=== PATIENT | female | born 1940 | race Caucasian/White ===

== ENCOUNTER 2021-01-15 08:08 | Observation (INO) ==
[2021-01-15] MEDS ORDERED: IOPAMIDOL 100 ML BOTTLE IV ONE (08:09)
[2021-01-15] MEDS ORDERED: PEG 3350/NA SULF,BICARB,CL/KCL 4,000 ML ORAL.SOL PO ONE ×3 (08:28→19:29)
--- NOTE | 2021-01-15 08:31 | Emergency Department Note ---
HPI General Chief complaint: Constipation Stated complaint: blocked up bowels Time Seen by Provider: 01/15/21 08:21 Source: patient Mode of arrival: wheelchair Limitations: no limitations History of Present Illness HPI Narrative: Narrative: This patient has not had a bowel movement 2 days and does feel like she is constipated. She does take narcotics for lumbar back pain. She has no nausea or vomiting and not much in the way of abdominal pain. Related Data Home Medications Medication Instructions Recorded Confirmed ascorbic acid (vitamin C) 500 mg mg PO 09/12/20 09/12/20 capsule aspirin 81 mg tablet,delayed 81 mg PO QDAY 09/12/20 09/12/20 release levothyroxine 100 mcg capsule 100 mcg PO QDAY 09/12/20 09/12/20 lorazepam 0.5 mg tablet 0.5 mg PO BID PRN 09/12/20 09/12/20 nszrsauu-tztdryu-gqij-lutein tablet mcg PO 09/12/20 09/12/20 quetiapine 25 mg tablet 25 mg PO QDAY 09/12/20 09/12/20 quetiapine 50 mg tablet 50 mg PO QHS 09/12/20 09/12/20 Previous Rx's Medication Instructions Recorded methocarbamol 500 mg tablet 500 mg PO Q6H PRN #30 tab 09/12/20 hydrocodone-acetaminophen 1 tab PO Q6-8HP PRN #10 tab 11/03/20 methocarbamol 500 mg PO Q6H PRN #20 tab 11/03/20 methocarbamol 750 mg PO TIDP PRN #42 tab 11/08/20 Allergies Allergy/AdvReac Type Severity Reaction Status Date / Time Penicillins Allergy itching/ Verified 09/12/20 12:36 rash Review of Systems ROS ROS Narrative: Narrative: All systems ED: reviewed and negative except as stated. PFSH Narrative Patient History Narrative: Narrative: Medical/Surgical/Family History All Active Problems (Updated 01/15/21 @ 08:31 by Trav Piper MD) Acute lumbar myofascial strain (Acute) Osteoarthritis of lumbar spine (Acute) Lumbar spine strain (Acute) Hematuria (Acute) Left flank pain (Acute) Right hip pain (Acute) Constipation (Acute) Social History Smoking Status: Current every day smoker Exam Narrative Narrative: Narrative: General Limitations: no limitations Head Head: Present atraumatic, normocephalic and normal inspection Adbominal Abdominal: Present soft; Absent distention and tenderness Rectal Rectal: Present other (She does have a fair amount of stool in the vault but I do not think she is impacted.) Neurological Neurological: Present alert Psychiatric Psychiatric: Present normal affect Skin Skin: Present warm (WNL) and dry; Absent diaphoresis Course Vital Signs Vital signs: Vital Signs Temperature 97.6 F 01/15/21 08:11 Pulse Rate 71 01/15/21 08:11 Respiratory Rate 19 01/15/21 08:11 Blood Pressure 149/85 01/15/21 08:11 Pulse Oximetry (%) 98 01/15/21 08:11 Temperature 97.6 F 01/15/21 08:11 Pulse Rate 71 01/15/21 08:11 Respiratory Rate 19 01/15/21 08:11 Blood Pressure 149/85 01/15/21 08:11 Pulse Oximetry (%) 98 01/15/21 08:11 MDM MDM Narrative Medical decision making narrative: Narrative: I am going to try to treat her with oral GoLYTELY here in the emergency room. She is a bit fragile does need some help. I will sign this patient off to Dr. Gomes been 1/2-hour and he will have final disposition. Discharge Plan Patient/Caregiver Discharge Instructions Pt seen by NUMERICAL TOOL PROGRAMMER/PA only: No Clinical Impression: Constipation Patient Disposition: Still a Patient Follow up with: Lucretia Aguirre MD [Primary Care Provider] - Prescriptions: No Action levothyroxine 100 mcg capsule 100 mcg PO QDAY RF: 0 quetiapine 25 mg tablet 25 mg PO QDAY RF: 0 quetiapine 50 mg tablet 50 mg PO QHS RF: 0 lorazepam 0.5 mg tablet 0.5 mg PO BID PRNRF: 0 aspirin 81 mg tablet,delayed release (DR/EC) 81 mg PO QDAY RF: 0 qjcjvqie-nedzzbb-pqjj-lutein Tablet PO RF: 0 ascorbic acid (vitamin C) 500 mg capsule PO RF: 0 methocarbamol 500 mg tablet 500 mg PO Q6H PRN (Reason: pain) Qty: 30 RF: 0 methocarbamol 500 mg tablet 500 mg PO Q6H PRN (Reason: muscle spasm) Qty: 20 RF: 0 hydrocodone-acetaminophen 5-325 mg Tablet 1 tab PO Q6-8HP PRN (Reason: Pain) Qty: 10 RF: 0 methocarbamol 750 mg tablet 750 mg PO TIDP PRN (Reason: muscle spasm) Qty: 42 RF: 0
[2021-01-15] MEDS ORDERED: BISACODYL 10 MG SUPP.RECT PR ONE (10:09)
--- NOTE | 2021-01-15 10:11 | Emergency Department Note ---
Abdominal Pain HPI General Chief Complaint: Constipation Stated Complaint: blocked up bowels Time Seen by Provider: 01/15/21 08:21 Source: patient Mode of arrival: wheelchair Limitations: no limitations History of Present Illness HPI Narrative: Narrative: See history and physical dictated by Dr. Piper. I am assuming care of patient due to change in shift. Related Data Home Medications Medication Instructions Recorded Confirmed ascorbic acid (vitamin C) 500 mg mg PO 09/12/20 09/12/20 capsule aspirin 81 mg tablet,delayed 81 mg PO QDAY 09/12/20 09/12/20 release levothyroxine 100 mcg capsule 100 mcg PO QDAY 09/12/20 09/12/20 lorazepam 0.5 mg tablet 0.5 mg PO BID PRN 09/12/20 09/12/20 uwvgbwvb-rsdyhdy-neom-lutein tablet mcg PO 09/12/20 09/12/20 quetiapine 25 mg tablet 25 mg PO QDAY 09/12/20 09/12/20 quetiapine 50 mg tablet 50 mg PO QHS 09/12/20 09/12/20 Previous Rx's Medication Instructions Recorded methocarbamol 500 mg tablet 500 mg PO Q6H PRN #30 tab 09/12/20 hydrocodone-acetaminophen 1 tab PO Q6-8HP PRN #10 tab 11/03/20 methocarbamol 500 mg PO Q6H PRN #20 tab 11/03/20 methocarbamol 750 mg PO TIDP PRN #42 tab 11/08/20 Allergies Allergy/AdvReac Type Severity Reaction Status Date / Time Penicillins Allergy itching/ Verified 09/12/20 12:36 rash Review of Systems ROS ROS Narrative: Narrative: [facility] Narrative Patient History Narrative: Narrative: Medical/Surgical/Family History All Active Problems (Updated 01/15/21 @ 16:37 by Jr Gomes DO) Acute lumbar myofascial strain (Acute) Osteoarthritis of lumbar spine (Acute) Lumbar spine strain (Acute) Large bowel obstruction (Acute) Abnormality of rectum (Acute) Acute urinary retention (Acute) Aortic aneurysm (Acute) Aortic stenosis, severe (Acute) Weakness generalized (Acute) Hematuria (Acute) Left flank pain (Acute) Right hip pain (Acute) Constipation (Acute) Social History Smoking Status: Current every day smoker Exam Narrative Narrative: Narrative: General: Somewhat cachectic frail elderly appearing female but seems to be without distress, nontoxic. Occasional intermittent crampy pain in the abdomen. Head: Normocephalic Eyes: Extraocular muscles intact Abdomen: Somewhat distended and rather tender to palpation. Back: Describes more tenderness in the left sacroiliac patient on percussion. Psych: Seems appropriate but quite concerned. Is appreciative. No psychomotor retardation, excitation/agitation, hallucinations or delusions. General Limitations: no limitations Course Vital Signs Vital signs: Vital Signs Temperature 97.6 F 01/15/21 08:11 Pulse Rate 71 01/15/21 08:11 Respiratory Rate 19 01/15/21 08:11 Blood Pressure 149/85 01/15/21 08:11 Pulse Oximetry (%) 98 01/15/21 08:11 Temperature 97.6 F 01/15/21 08:11 Pulse Rate 72 01/15/21 16:22 Respiratory Rate 18 01/15/21 16:22 Blood Pressure 173/85 01/15/21 16:22 Pulse Oximetry (%) 100 01/15/21 12:35 MDM MDM Narrative Medical decision making narrative: Narrative: 10:09 AM - nursing reported that GoLYTELY is now causing her some nausea with some vomiting. She has not had any results. Patient indicated to staff that she has had occasional small amount of smear of stool with wiping but no good bowel movements. We will give her ondansetron sublingual and a Dulcolax suppository. 10:40 AM - nursing reports that imaging has not been done or ordered. Patient appearing somewhat distended. We will go ahead with an x-ray abdomen. 10:59 AM - abdominal x-ray official reading still pending. There are several areas of air-fluid levels. She has not had labs or CT and I am going to go ahead and pursue further. These air-fluid levels could be from her GoLYTELY but with her and not tolerating this, I will be more aggressive with labs and CT. CT ABDOMEN/PELVIS W CONTRAST: 1. Moderate atypical ileus versus distal colonic obstruction at the rectal level due to concentric rectal wall thickening due to fibrosis or inflammation. Consider NG tube decompression followed by water-soluble contrast small bowel follow-through to study the transit time of the entire GI tract to ensure the absence of both small and large bowel obstruction. 2. Fusiform infrarenal abdominal aortic aneurysm 3.6 cm diameter and 6.5 cm in length. There is also a 90% stenosis in the infrarenal abdominal aorta - just below the aneurysm above the aortic bifurcation. This patient is at risk for Leriche's syndrome please correlate with bilateral lower extremity rest pain, claudication and diminished pulses. Consideration for referral to interventional radiology for aortic stenosis dilatation and endovascular graft placement for aneurysm treatment should be entertained. There are 50% stenoses in both common and external iliac arteries. 3. Cholelithiasis. 4. Marked urinary bladder distention. consider catheterization. 5. Mild L3 compression fracture - new from plain films two months prior. Diffuse osteoporosis noted. Labs include normal white count, no anemia. Electrolytes unremarkable. AST and ALT 23 and 14. Alkaline phosphatase 129. CRP is 0.80. Proteins unremarkable. 1:43 PM - spoke with Dr. Pak, general surgeon, who suggest that she does need to be admitted for prep and colonoscopy. He agrees with speaking with interventional radiology regarding the possible urgency versus not urgent for addressing her aneurysm and or aortic stenosis. Call out to Dr. Farfan. 1:50 PM - patient is now going to the bathroom regularly and well. She states that when she got the stool plug out that she has been having some watery bowel movements for the regularly and she believes that she is emptying her bladder as well. We will do a repeat bladder scan. 2:35 PM - repeat bladder scan 650 cc. Larsen catheter to be placed. Lactic acid 2.1. White count as below unremarkable. Electrolytes unremarkable as below. 4:00 PM approximately - spoke with Dr. Ramirez Farfan who reports that patient's condition does not require any urgency. The diameter of the aneurysm is the only predictor of major concern and she is not widely dilated enough to be of any specific concern. With no major symptoms into the lower extremities there is no exigency for dilation of the stenosis at this point. Treat for her current presentation/symptoms. I spoke with Dr. aPk again and he is willing to see this patient and do the colonoscopy probably tomorrow. He would prefer hospitalist to admit. 4:09 PM - I spoke with Dr. Cunningham, and he is willing to accept this patient. 4:26 PM - nursing reports that after the Larsen catheter was placed 7 cc return. Lab Data Result diagrams: 01/15/21 11:16 01/15/21 11:16 Labs: Lab Results 01/15/21 01/15/21 Range/Units 11:16 11:16 WBC 11.0 (4.5-11.0) K/mcL RBC 4.11 (4.00-5.20) M/mcL Hgb 13.7 (12.0-15.0) g/dL Hct 40.5 (36.0-48.0) % MCV 98.5 (80.0-100.0) fL MCH 33.3 (26.0-34.0) pg MCHC 33.8 (31.0-36.0) g/dL RDW 13.7 (11.5-14.5) % Plt Count 225 (140-440) K/mcL MPV 10.7 H (7.4-10.4) fL Neut % (Auto) 75.5 (38.0-78.0) % Lymph % (Auto) 18.3 (15.0-49.0) % [place] % (Auto) 4.7 (1.0-12.0) % Eos % (Auto) 1.0 (0.0-7.0) % Baso % (Auto) 0.5 (0.0-2.0) % Lymph # (Auto) 2.00 (1.50-4.80) K/mcL [place] # (Auto) 0.52 (0.10-0.90) K/mcL Eos # (Auto) 0.11 (0.00-0.70) K/mcL Baso # (Auto) 0.05 (0.00-0.20) K/mcL Absolute Neutrophils 8.27 H (1.80-8.00) K/mcL Sodium 138 (133-145) mmol/L Potassium 3.8 (3.3-5.1) mmol/L Chloride 99 (96-108) mmol/L Carbon Dioxide 23 (22-30) mmol/L Anion Gap 16.0 (8.0-16.0) BUN 9 (8-23) mg/dL Creatinine 0.7 (0.6-1.1) mg/dL POC Creatinine 0.7 (0.6-1.2) mg/dL GFR Calculation 83 Glucose 116 H (70-105) mg/dL Calcium 9.1 (8.6-10.4) mg/dL Total Bilirubin 0.2 (0.1-1.0) mg/dL AST 23 (<32) U/L ALT 14 (<40) U/L Alkaline Phosphatase 129 H (39-117) U/L C-Reactive Protein 0.80 (0.03-0.80) mg/dL Total Protein 7.3 (5.9-8.4) gm/dL Albumin 4.1 (3.2-5.2) gm/dL Globulin 3.2 (2.2-3.7) gm/dL Albumin/Globulin Ratio 1.3 (1.0-2.3) Discharge Plan Patient/Caregiver Discharge Instructions Pt seen by STOVE REFINISHER/PA only: No Clinical Impression: Large bowel obstruction, Abnormality of rectum, Acute urinary retention, Aortic aneurysm, Aortic stenosis, severe, Weakness generalized Patient Disposition: Xfer As Inpt ([facility]) Follow up with: Lucretia Aguirre MD [Primary Care Provider] - Prescriptions: No Action levothyroxine 100 mcg capsule 100 mcg PO QDAY RF: 0 quetiapine 25 mg tablet 25 mg PO QDAY RF: 0 quetiapine 50 mg tablet 50 mg PO QHS RF: 0 lorazepam 0.5 mg tablet 0.5 mg PO BID PRNRF: 0 aspirin 81 mg tablet,delayed release (DR/EC) 81 mg PO QDAY RF: 0 lioylknf-mhnuwqn-qubi-lutein Tablet PO RF: 0 ascorbic acid (vitamin C) 500 mg capsule PO RF: 0 methocarbamol 500 mg tablet 500 mg PO Q6H PRN (Reason: pain) Qty: 30 RF: 0 methocarbamol 500 mg tablet 500 mg PO Q6H PRN (Reason: muscle spasm) Qty: 20 RF: 0 hydrocodone-acetaminophen 5-325 mg Tablet 1 tab PO Q6-8HP PRN (Reason: Pain) Qty: 10 RF: 0 methocarbamol 750 mg tablet 750 mg PO TIDP PRN (Reason: muscle spasm) Qty: 42 RF: 0
[2021-01-15] MEDS ORDERED: ONDANSETRON 4 MG ODT TABLET SL ONE (10:25)
[2021-01-15 11:23] LABS: POC Creatinine 0.7 mg/dL (0.6-1.2)
[2021-01-15 12:11] LABS: Basophils # (Auto) 0.05 K/mcL (0.00-0.20); Basophils % (Auto) 0.5 % (0.0-2.0); Eosinophils # (Auto) 0.11 K/mcL (0.00-0.70); Hematocrit 40.5 % (36.0-48.0); Hemoglobin 13.7 g/dL (12.0-15.0); Lymphocytes % (Auto) 18.3 % (15.0-49.0); Mean Cell Volume 98.5 fL (80.0-100.0); Mean Corpuscular HGB Conc 33.8 g/dL (31.0-36.0); Mean Platelet Volume 10.7 fL (7.4-10.4); Monocytes # (Auto) 0.52 K/mcL (0.10-0.90); Monocytes % (Auto) 4.7 % (1.0-12.0); Neutrophils % (Auto) 75.5 % (38.0-78.0); Platelet Count 225 K/mcL (140-440); RBC 4.11 M/mcL (4.00-5.20); Red Cell Distribution Width 13.7 % (11.5-14.5)
--- NOTE | 2021-01-15 12:13 | XRay Report ---
CLINICAL INFORMATION: constipation; distension; vomiting COMPARISON: None. FINDINGS: The stomach and multiple loops of upper small bowel are moderately dilated with air-fluid levels. The distal small bowel and colon are decompressed. No free air, soft tissue mass or organomegaly. IMPRESSION: High-grade mid small bowel obstruction. Interpreted and Authenticated by: Ramirez Allen 01/15/21
[2021-01-15 12:28] LABS: ALT/SGPT 14 U/L (<40); AST/SGOT 23 U/L (<32); Albumin 4.1 gm/dL (3.2-5.2); Albumin/Globulin Ratio 1.3 (1.0-2.3); Alkaline Phosphatase 129 U/L (39-117); Bilirubin,Total 0.2 mg/dL (0.1-1.0); Blood Urea Nitrogen 9 mg/dL (8-23); Calcium 9.1 mg/dL (8.6-10.4); Carbon Dioxide 23 mmol/L (22-30); Chloride 99 mmol/L (96-108); Globulin 3.2 gm/dL (2.2-3.7); Glomerular Filtration Rate 83; Glucose 116 mg/dL (70-105)
--- NOTE | 2021-01-15 13:18 | Cat Scan Report ---
CLINICAL INFORMATION: Abdominal pain and distention COMPARISON: None. TECHNIQUE: Following water enteric contrast, 80 cc of Isovue-370 were injected intravenously, and 60 seconds later, 0.625 mm helical slices were obtained from the mid heart through the subtrochanteric regions. Following reconstruction, 2.5 mm sagittal, coronal and axial reformatted images were processed and reviewed at bone, lung and soft tissue windows. Five minutes later, 0.625 mm helical slices were obtained from the mid heart through the kidneys and viewed at soft tissue windows.The exam was performed using radiation dose optimization techniques including, but not limited to, automated exposure control, adjustment of the mA and/or kV according to patient size and use of iterative reconstruction technique. FINDINGS: Lung bases show no abnormality - no effusion. Visualized heart is normal. Images should the abdomen show mild fatty change within the liver. A 6 mm simple cyst in the subdiaphragmatic posterior segment right hepatic lobe is present, but no significant focal renal lesions. A 14 mm solitary stone is present in the gallbladder. Gallbladder is, otherwise, normal. The intrahepatic and common bile ducts are normal: CBD is 5 mm. The pancreas, both kidneys, adrenal glands, spleen are all normal in size, configuration and attenuation without focal lesion. Fusiform infrarenal abdominal aortic aneurysm with a diameter 3.6 cm and 6.5 cm in length appreciated appreciated. Extremely heavy fibrofatty calcific plaque throughout the abdominal aorta with an aortic stenosis greater than 90% just distal to the aneurysm above the aortic bifurcation. The celiac, SMA, MYA, renal arteries contain plaque, but no stenoses. There is heavy fibrofatty calcific plaque in both common iliac arteries with stenoses estimated to be approximately 50%. Scattered stenoses within the external iliac, common femoral and internal iliac arteries stenoses approximately 50%. Pelvic images show marked distention of the urinary bladder. Hysterectomy and oophorectomy changes are noted. There is no free air, free fluid or adenopathy. The stomach, duodenum and jejunum are normal in caliber. The mid/distal jejunum, ileum and the entire colon are moderately dilated the rectal level. Mild concentric wall thickening of the distal rectum near the anal verge and indicate fibrosis or inflammation.. Bone windows show mild L3 compression fracture - new from plain film two months prior 11/03/2020. Minimal chronic L1 compression fractures stable. Diffuse osteoporosis noted IMPRESSION: 1. Moderate atypical ileus versus distal colonic obstruction at the rectal level due to concentric rectal wall thickening due to fibrosis or inflammation. Consider NG tube decompression followed by water-soluble contrast small bowel follow-through to study the transit time of the entire GI tract to ensure the absence of both small and large bowel obstruction. 2. Fusiform infrarenal abdominal aortic aneurysm 3.6 cm diameter and 6.5 cm in length. There is also a 90% stenosis in the infrarenal abdominal aorta - just below the aneurysm above the aortic bifurcation. This patient is at risk for Leriche's syndrome please correlate with bilateral lower extremity rest pain, claudication and diminished pulses. Consideration for referral to interventional radiology for aortic stenosis dilatation and endovascular graft placement for aneurysm treatment should be entertained. There are 50% stenoses in both common and external iliac arteries. 3. Cholelithiasis. 4. Marked urinary bladder distention. consider catheterization. 5. Mild L3 compression fracture - new from plain films two months prior. Diffuse osteoporosis noted. Interpreted and Authenticated by: Ramirez Allen 01/15/21
--- NOTE | 2021-01-15 18:18 | Internal Med History&Physical ---
HPI History of Present Illness Patient information: Note initiated : 01/15/21 at 6:09 pm Service Date, if different from initiated Date: [] Patient: Arlette Glez 80 y/o F admitted on for Blocked Up Bowels. Chief Complaint: [constipation] History of present illness: Ms. Glze is a 80 year old female with a history of hypothyroidism, vertebral compression fractures, insomnia who presents to the ED for inability to defecate. The patient received GoLYTELY in the ED and was able to have a bowel movement. Work-up included a CT abdomen and pelvis with contrast which showed an atypical ileus versus distal colonic obstruction at the rectal level due to concentric rectal wall thickening. CT scan also showed a abdominal aortic aneurysm and distal aorta stenosis as well as 50% stenosis in the common and external iliac arteries. The patient was admitted to the evaluation of rectal wall. Review of systems Constitutional: positive for unintentional weight loss Eyes: no vision changes or pain Cardiovascular: no chest pain, no palpitations Respiratory: no cough or dyspnea Gastrointestinal: positive for constipation-resolved, feeling of abdominal fullness Genitourinary: no dysuria Musculoskeletal: no arthralgia or myalgia Integumentary: no skin lesion or wound Neurological: no focal weakness or numbness Psychiatric: positive for depression and anhedonia PFSH PFSH All Active Problems (Updated 01/15/21 @ 16:37 by Jr Gomes DO) Acute lumbar myofascial strain (Acute) Osteoarthritis of lumbar spine (Acute) Lumbar spine strain (Acute) Large bowel obstruction (Acute) Abnormality of rectum (Acute) Acute urinary retention (Acute) Aortic aneurysm (Acute) Aortic stenosis, severe (Acute) Weakness generalized (Acute) Hematuria (Acute) Left flank pain (Acute) Right hip pain (Acute) Constipation (Acute) Social History smoking status: Current every day smoker MEDS/ALLERGIES Home Medications and Allergies Home Medications Medication Instructions Recorded Confirmed Type ascorbic acid (vitamin C) 500 mg mg PO 09/12/20 09/12/20 History capsule aspirin 81 mg tablet,delayed 81 mg PO QDAY 09/12/20 09/12/20 History release levothyroxine 100 mcg capsule 100 mcg PO QDAY 09/12/20 09/12/20 History lorazepam 0.5 mg tablet 0.5 mg PO BID PRN 09/12/20 09/12/20 History methocarbamol 500 mg tablet 500 mg PO Q6H PRN #30 tab 09/12/20 09/12/20 Rx pooflrcr-kkkwgcw-hltk-lutein tablet mcg PO 09/12/20 09/12/20 History quetiapine 25 mg tablet 25 mg PO QDAY 09/12/20 09/12/20 History quetiapine 50 mg tablet 50 mg PO QHS 09/12/20 09/12/20 History hydrocodone-acetaminophen 1 tab PO Q6-8HP PRN #10 tab 11/03/20 Rx methocarbamol 500 mg PO Q6H PRN #20 tab 11/03/20 Rx methocarbamol 750 mg PO TIDP PRN #42 tab 11/08/20 Rx Allergies Allergy/AdvReac Type Severity Reaction Status Date / Time Penicillins Allergy itching/ Verified 09/12/20 12:36 rash EXAM Constitutional Vitals: Temp Pulse Resp BP Pulse Ox 97.6 F 65 20 149/72 100 01/15/21 08:11 01/15/21 17:42 01/15/21 17:42 01/15/21 17:42 01/15/21 12:35 Additional findings Additional findings: Head: Atraumatic, normal inspection. Eyes: normal appearance, no scleral icterus. Neck: full ROM Respiratory: no respiratory distress. Cardiovascular: normal rate and rhythm, S1, S2. GI/Abdominal: soft, nontender, no guarding. Extremities: full range of motion, nontender. Neurological: CN II-XII intact, intact motor, intact sensation. Psychiatric: normal mood. Skin: warm, normal color DATA Data Completed and Pending Labs: Labs from last 24 hours 01/15/21 01/15/21 11:16 11:16 WBC 11.0 RBC 4.11 Hgb 13.7 Hct 40.5 MCV 98.5 MCH 33.3 MCHC 33.8 RDW 13.7 Plt Count 225 MPV 10.7 H Neut % (Auto) 75.5 Lymph % (Auto) 18.3 [place] % (Auto) 4.7 Eos % (Auto) 1.0 Baso % (Auto) 0.5 Lymph # (Auto) 2.00 [place] # (Auto) 0.52 Eos # (Auto) 0.11 Baso # (Auto) 0.05 Absolute Neutrophils 8.27 H Sodium 138 Potassium 3.8 Chloride 99 Carbon Dioxide 23 Anion Gap 16.0 BUN 9 Creatinine 0.7 POC Creatinine 0.7 GFR Calculation 83 Glucose 116 H Calcium 9.1 Total Bilirubin 0.2 AST 23 ALT 14 Alkaline Phosphatase 129 H C-Reactive Protein 0.80 Total Protein 7.3 Albumin 4.1 Globulin 3.2 Albumin/Globulin Ratio 1.3 A/P Narrative A/P Narrative: Assessment: 80-year-old female admitted for difficulty defecating for about 1 day, had a bowel movement receiving GoLYTELY in the ED. Work-up showed controlled told thickening of uncertain etiology, plan for colonoscopy. #Partial distal colonic obstruction #Circumferential rectal wall thickening: uncertain etiology #Urinary retention #Hypothyroidism #Depression #AAA-3.6 cm #Subacute L3 compression fracture #Osteoporosis Plan -Admit for observation -Golytely tonight and colonoscopy in AM -Clear liquid diet -Check TSH -Resume most home medications when reconciled, likely hold methocarbamol. -Remove byrd catheter, bladder scan Qshift w/ straight cath prn. -Would be best for the patient to follow up with behavior health after discharge. Time Spent With Patient Time: Total time spent is greater than 50% in coordination of care (as documented) at patient's floor/unit and/or counseling patient: 72
--- NOTE | 2021-01-15 19:10 | General Surgery Consult Note ---
HPI Data of Consult Patient: new to practice Consult date: 01/15/21 Requesting physician: Jr Gomes Primary Care Provider: Lucretia Aguirre Consult Narrative Chief complaint: Abdominal pain Reason for consult: Ileus, possible thickening of rectal wall History of present illness: This is a pleasant 80-year-old female who presents to [facility] with complaint of constipation since this morning. She reports that in 2018 she had a bout of constipation which was relieved with GoLYTELY, since that time she had intermittent diarrhea which she takes Pepto-Bismol for. She denies any nausea vomiting fevers or chills. She reports this morning she was slightly distended and felt the need to have a bowel movement but was unable to have a bowel movement. Therefore she came to the emergency room for further work-up. Upon work-up she was found to have a bowel movement in the emergency room, however plain films showed distended small bowel and a CT scan shows a ileus throughout with a possible transition point in the rectum where there may be questionable thickening of the rectal wall. Patie nt denies any prior screening colonoscopies, she denies any family history of colon or rectal cancer. She denies fevers or chills. cc:: CC: Constitutional Constitutional: Present as per HPI PFSH PFSH All Active Problems (Updated 01/15/21 @ 19:13 by Jameson Pak MD) Acute lumbar myofascial strain (Acute) Osteoarthritis of lumbar spine (Acute) Lumbar spine strain (Acute) Large bowel obstruction (Acute) Abnormality of rectum (Acute) Acute urinary retention (Acute) Aortic aneurysm (Acute) Aortic stenosis, severe (Acute) Weakness generalized (Acute) Hematuria (Acute) Left flank pain (Acute) Right hip pain (Acute) Constipation (Acute) Social History smoking status: Current every day smoker MEDS/ALLERGIES Home Medications and Allergies Home Medications Medication Instructions Recorded Confirmed Type ascorbic acid (vitamin C) 500 mg mg PO 09/12/20 09/12/20 History capsule aspirin 81 mg tablet,delayed 81 mg PO QDAY 09/12/20 09/12/20 History release levothyroxine 100 mcg capsule 100 mcg PO QDAY 09/12/20 09/12/20 History egzvoktz-uduilos-ctaw-lutein tablet mcg PO 09/12/20 09/12/20 History quetiapine 25 mg tablet 25 mg PO QDAY 09/12/20 09/12/20 History quetiapine 50 mg tablet 50 mg PO QHS 09/12/20 09/12/20 History hydrocodone-acetaminophen 1 tab PO Q6-8HP PRN #10 tab 11/03/20 Rx methocarbamol 750 mg PO TIDP PRN #42 tab 11/08/20 Rx Allergies Allergy/AdvReac Type Severity Reaction Status Date / Time Penicillins Allergy itching/ Verified 09/12/20 12:36 rash Physical Examination Vital Signs Vital signs: Temp Pulse Resp BP Pulse Ox 97.6 F 65 20 149/72 100 01/15/21 08:11 01/15/21 17:42 01/15/21 17:42 01/15/21 17:42 01/15/21 12:35 General physical appearance General physical exam: well developed, well nourished and no distress Eyes Eye exam: PERRL and normal ocular movement ENT ENT exam: normal pinna, normal nares, normal mucosa, no hearing loss and no congestion Head Head exam IM: Present atraumatic and normocephalic Neck Neck exam: no masses, no bruits, trachea midline, no lymphadenopathy and no venous distension Cardiovascular Cardiovascular exam IM: Present normal rate and rhythm Respiratory Respiratory exam: normal expansion, normal respiratory effort, clear to percussion and clear to auscultation Abdomen Abdomen: Present soft, non tender and bowel sounds Hernia: Present none Genitourinary Genitourinary (Female): Present normal external genitalia Rectum Rectum: Present normal sphincter tone, no hemorrhoids, no tenderness, no masses and no bleeding Integumentary Integumentary: Present no rash, no growths and no abnormal pigmentation Neurologic Neurologic: Present normal coordination and normal sensation Musculoskeletal Musculoskeletal: Present normal gait and normal posture Psychiatric Psychiatric: Present oriented to time, oriented to person, oriented to place, speech is normal and memory intact Results Labs Result diagrams: 01/15/21 11:16 01/15/21 11:16 Labs: Abnormal lab results 01/15/21 01/15/21 Range/Units 11:16 11:16 MPV 10.7 H (7.4-10.4) fL Absolute Neutrophils 8.27 H (1.80-8.00) K/mcL Glucose 116 H (70-105) mg/dL Alkaline Phosphatase 129 H (39-117) U/L Diabetes panel 01/15/21 Range/Units 11:16 Sodium 138 (133-145) mmol/L Potassium 3.8 (3.3-5.1) mmol/L Chloride 99 (96-108) mmol/L Carbon Dioxide 23 (22-30) mmol/L BUN 9 (8-23) mg/dL Creatinine 0.7 (0.6-1.1) mg/dL Glucose 116 H (70-105) mg/dL Calcium 9.1 (8.6-10.4) mg/dL AST 23 (<32) U/L ALT 14 (<40) U/L Alkaline Phosphatase 129 H (39-117) U/L Total Protein 7.3 (5.9-8.4) gm/dL Albumin 4.1 (3.2-5.2) gm/dL Calcium panel 01/15/21 Range/Units 11:16 Calcium 9.1 (8.6-10.4) mg/dL Albumin 4.1 (3.2-5.2) gm/dL Pituitary panel 01/15/21 Range/Units 11:16 Sodium 138 (133-145) mmol/L Potassium 3.8 (3.3-5.1) mmol/L Chloride 99 (96-108) mmol/L Carbon Dioxide 23 (22-30) mmol/L BUN 9 (8-23) mg/dL Creatinine 0.7 (0.6-1.1) mg/dL Glucose 116 H (70-105) mg/dL Calcium 9.1 (8.6-10.4) mg/dL Adrenal panel 01/15/21 Range/Units 11:16 Sodium 138 (133-145) mmol/L Potassium 3.8 (3.3-5.1) mmol/L Chloride 99 (96-108) mmol/L Carbon Dioxide 23 (22-30) mmol/L BUN 9 (8-23) mg/dL Creatinine 0.7 (0.6-1.1) mg/dL Glucose 116 H (70-105) mg/dL Calcium 9.1 (8.6-10.4) mg/dL Total Bilirubin 0.2 (0.1-1.0) mg/dL AST 23 (<32) U/L ALT 14 (<40) U/L Alkaline Phosphatase 129 H (39-117) U/L Total Protein 7.3 (5.9-8.4) gm/dL Albumin 4.1 (3.2-5.2) gm/dL All other labs normal. A/P Assessment and plan (1) Constipation: Status: Acute Comment: This is a pleasant 80-year-old female with change in bowel habits over the last several years who has not had a screening colonoscopy done. Qualifiers: Constipation type: unspecified constipation type Qualified Code(s): K59.00 - Constipation, unspecified (2) Abnormality of rectum: Status: Acute Narrative A/P Narrative: Risk, benefits, alternatives to treatment plans discussed with the patient at length. Given her questionable thickening of the rectal wall, change in bowel habits over the last several years and no prior colorectal screening I feel it is important to do a full colonoscopy during this admission. She verbalizes understanding of that recommendation and agrees with the plan at this time. We will prep tonight with Celeste, add onto the OR schedule for tomorrow for a screening colonoscopy. Thank you very much for this consultation, please call with any further questions. Jameson Pak MD, FACS [facility] General Surgery [phone] Time Spent With Patient Time: Total time spent is greater than 50% in coordination of care (as documented) at patient's floor/unit and/or counseling patient:
[2021-01-15] MEDS ORDERED: ONDANSETRON 4 MG/2 ML VIAL IV PRN (19:29)
[2021-01-15] MEDS: 0.9 % SODIUM CHLORIDE 10 ML SYRINGE IV SCH (21:53)
[2021-01-15] MEDS: ACETAMINOPHEN 500 MG TABLET PO PRN (21:53)
[2021-01-15] MEDS: MELATONIN 3 MG TABLET PO PRN (21:53)
[2021-01-16] MEDS: 0.9 % SODIUM CHLORIDE 10 ML SYRINGE IV SCH ×5 (03:37→16:44)
[2021-01-16] MEDS: ACETAMINOPHEN 500 MG TABLET PO PRN ×2 (05:55→23:04)
[2021-01-16 08:14] LABS: Thyroid Stimulating Hormone 3.88 uIU/mL (0.27-5.01)
[2021-01-16] MEDS: LEVOTHYROXINE 100 MCG TABLET PO SCH ×2 (08:23→08:46)
--- NOTE | 2021-01-16 12:18 | Internal Med Progress Note ---
SUBJECTIVE Subjective Patient information: Note initiated : 01/16/21 at 12:12 pm Service Date, if different from initiated Date: [] Patient: Arlette Glez a 80 y/o F admitted on 01/15/21 for Blocked Up Bowels. Chief Complaint: [] Interval history: Ms. Glez is a 80 year old female with a history of hypothyroidism, vertebral compression fractures, insomnia who presents to the ED for inability to defecate. The patient received GoLYTELY in the ED and was able to have a bowel movement. Work-up included a CT abdomen and pelvis with contrast which showed an atypical ileus versus distal colonic obstruction at the rectal level due to concentric rectal wall thickening. CT scan also showed a abdominal aortic aneurysm and distal aorta stenosis as well as 50% stenosis in the common and external iliac arteries. The patient was admitted to the ev aluation of rectal wall thickening. 01/16 Colonoscopy today. Constitutional Vitals: Vital Signs Temp Pulse Resp BP Pulse Ox 97.6 F 75 16 162/84 96 01/16/21 07:50 01/16/21 08:00 01/16/21 08:00 01/16/21 07:50 01/16/21 08:00 Period Temp Pulse Resp BP Sys/Nascimento Pulse Ox Last 24 Hr 97.6 F-98.0 F 62-85 15-20 133-212/68-118 96-100 Intake and Output 01/15/21 01/16/21 01/16/21 21:59 05:59 13:59 Intake Total 3000 Output Total 1500 1950 Balance -1500 1050 Weight 52.163 kg Intake & Output: Intake & Output 01/15/21 01/16/21 01/16/21 21:59 05:59 13:59 Intake Total 3000 Output Total 1500 1950 Balance -1500 1050 Weight 52.163 kg Intake: Oral 3000 Output: Urine Catheter Amount 1500 700 Straight 700 Urine/Stool Mix 900 Stool 350 Other: Urine Appearance Clear Clear Straight Clear Uretheral ([place]) Cloudy Urine Color Bright Yellow Bright Yellow Straight Bright Yellow Uretheral ([place]) Bright Yellow Urine Odor Normal Normal Straight Normal Stool Size Small Large Large Stool Color Brown Brown Brown Yellow Yellow Stool Consistency Liquid Liquid Liquid Watery Watery # of times incontinent of 1 Bowels Additional findings Additional findings: Head: Atraumatic, normal inspection. Eyes: normal appearance, no scleral icterus. Neck: full ROM Respiratory: no respiratory distress. Cardiovascular: normal rate and rhythm, S1, S2. GI/Abdominal: soft, nontender, no guarding. Extremities: full range of motion, nontender. Neurological: CN II-XII intact, intact motor, intact sensation. Psychiatric: normal mood. Skin: warm, normal color OBJ DATA Labs CBC & Chem 7: 01/15/21 11:16 01/15/21 11:16 Labs: Abnormal Lab Results 01/15/21 01/15/21 11:16 11:16 MPV 10.7 H Absolute Neutrophils 8.27 H Glucose 116 H Alkaline Phosphatase 129 H Meds: Medications Acetaminophen (Acetaminophen 500 Mg Tablet) 500 mg PO Q6HP PRN; Protocol PRN Reason: Per Pain Protocol Last Admin: 01/16/21 05:55 Dose: 500 mg Documented by: Levothyroxine Sodium (Levothyroxine 100 Mcg Tablet) 100 mcg PO ACB MARIE Last Admin: 01/16/21 08:46 Dose: 100 mcg Documented by: Melatonin (Melatonin 3 Mg Tablet) 3 mg PO HSP PRN PRN Reason: Insomnia Last Admin: 01/15/21 21:53 Dose: 3 mg Documented by: Ondansetron HCl (Ondansetron 4 Mg/2 Ml Vial) 4 mg IV Q6HP PRN PRN Reason: Nausea And Vomiting Sodium Chloride (0.9 % Sodium Chloride 10 Ml Syringe) 10 ml IV Q8 [facility] Last Admin: 01/16/21 04:43 Dose: Not Given Documented by: A/P Narrative A/P Narrative: Assessment: 80-year-old female admitted for difficulty defecating for about 1 day, had a bowel movement receiving GoLYTELY in the ED. CT abd/pelvis in the ED showed rectal wall thickening of uncertain etiology. Admitted to observation for bowel prep and colonoscopy. #Partial distal colonic obstruction-seems to have resolved #Circumferential rectal wall thickening: uncertain etiology #Urinary retention-seems to have resolved #Hypothyroidism-stable #Depression #AAA-3.6 cm #Subacute L3 compression fracture #Osteoporosis Plan -Colonoscopy today -Holding Seroquel and methocarbamol. -Bladder scan Qshift w/ straight cath prn. -Outpatient AAA monitoring w/ ultrasound. -PT/OT -Dispo: probably home Time Spent With Patient Time: Total time spent is greater than 50% in coordination of care (as documented) at patient's floor/unit and/or counseling patient: QUALITY VTE Deep Vein Thrombosis/Pulmonary Embolism Present on Admission: No
[2021-01-16] MEDS ORDERED: KETAMINE HCL 50 MG/ML ML IV PRN (14:02)
[2021-01-16] MEDS ORDERED: MIDAZOLAM 2 MG/2 ML VIAL IV SCH (14:15)
[2021-01-16] MEDS ORDERED: PROPOFOL 200 MG/20 ML VIAL IV SCH (14:15)
--- NOTE | 2021-01-16 16:44 | Colonoscopy Procedure Note ---
Colonoscopy Procedure Notes Procedure Information Patient information: Note initiated : 01/16/21 at 4:41 pm Service Date: 01/15/21 Patient: Arlette Glez 80 y/o F admitted on 01/15/21 for Blocked Up Bowels. Pre-op diagnosis general: Chronic constipation, rectal wall thickening on CT scan Post-op diagnosis general: Chronic constipation, negative colonoscopy Procedure: Colonoscopy Requiring In House Prep Procedure narrative: After risks benefits and alternatives to the procedure were discussed with the patient at length she verbalized understanding and desire to continue with colonoscopy. Patient was taken to endoscopy and placed on the table. Surgical timeout was ta mariya to verify patient and procedure being performed. Conscious sedation was performed with 1/2 mL of lidocaine, two of Versed, 200 of propofol. Digital rectal exam was performed which was within normal limits. The scope was advanced under direct vision to the cecum which was identified by the [place] foot, appendiceal orifice and by palpation. Full exam upon removal of the scope was performed along with the retroflexion in the rectum. Full exam was within normal limits. Assessment: Negative screening colonoscopy Image Colon: 1. Retroflexion in the rectum 2. Full negative colonoscopy
[2021-01-16] MEDS: MELATONIN 3 MG TABLET PO PRN (22:40)
[2021-01-17] MEDS: LEVOTHYROXINE 100 MCG TABLET PO SCH (07:46)
--- NOTE | 2021-01-17 09:07 | Discharge Summary ---
Discharge Provider Provider Patient information: Note initiated : 01/17/21 at 8:59 am Service Date, if different from initiated Date: [] Patient: Arlette Glez 80 y/o F admitted on 01/15/21 for Blocked Up Bowels. Chief Complaint: [constipation] Date of admission: 01/15/21 19:19 Discharge date: 01/17/21 Primary care physician: Lucretia Aguirre Consults: 01/15/21 Consult to Physician [CONS] Stat Comment: Consulting Provider: Lio Cunningham Reason For Exam: Physician to Consult Consult to Physician [CONS] Stat Comment: Consulting Provider: Jameson Pak Reason For Exam: Physician to Consult Discharge Meds Discharge Medications Home Medications ascorbic acid (vitamin C) 500 mg capsule 500 mg PO QDAY 09/12/20 [History Confirmed 01/15/21 Last Taken 01/14/21] aspirin 81 mg tablet,delayed release 81 mg PO QDAY 09/12/20 [History Confirmed 01/15/21 Last Taken 01/14/21] levothyroxine 100 mcg capsule 100 mcg PO QDAY 09/12/20 [History Confirmed 01/15/21 Last Taken 01/14/21] quetiapine 25 mg tablet 25 mg PO QHS 09/12/20 [History Confirmed 01/15/21 Last Taken 01/14/21 21:00] quetiapine 50 mg tablet 75 mg PO QHS 09/12/20 [History Confirmed 01/15/21 Last Taken 01/14/21 21:00] Centrum Silver Women 1 tab PO QDAY 01/15/21 [History Confirmed 01/15/21 Last Taken 01/14/21] acetaminophen [Tylenol Extra Strength] 500 mg PO Q6HP PRN #30 tab NS 01/17/21 [Rx Last Taken Unknown] melatonin 3 mg PO HSP PRN #30 tab NS 01/17/21 [Rx Last Taken Unknown] COURSE Hospital Course Hospital course: Ms. Glez is a 80 year old female with a history of hypothyroidism, vertebral compression fractures, depression, insomnia who presents to the ED for inability to defecate. The patient received GoLYTELY in the ED and was able to have a bowel movement. Work-up included a CT abdomen and pelvis with contrast which showed an atypical ileus versus distal colonic obstruction at the rectal level due to concentric rectal wall thickening. CT scan also showed a abdominal aortic aneurysm and distal aorta stenosis as well as 50% stenosis in the common and external iliac arteries. The patient was admitted to the evaluation of the possible rectal wall thickening reported on the CT scan. Incidentlly the CT scan also showed an abdominal aortic aneurysm of 3.6 cm diameter and common and ileac artery stenosis. There was no abdominal pain or history of claudication. She received Golytely with good bowel preparation followed by a full colonoscopy the following day that was reported as negative. The patient had a byrd catheter placed in the ED for urinary retention that was removed at hospital admission. Bladder scans showed that the urinary retention had resolved. The patient felt that her depression had worsened recently. TSH was normal. PT and OT were consulted, felt the patient could discharge to home. The patient was discharged to home. Methocarbamol was held during the hospital stay, no difference was noticed by the patient therefore it was was not resumed at discharge. I am concerned the patient's depression has progressed, possibly influenced by isolation from the COVID-19 pandemic. The patient no longer has interest in what used to bring her soo and she says she has lost weight recently. She says she is on Seroquel for depression however it seems it may be for insomnia. Her PCP may consider a trial of an SSRI for possible benefit. We discussed reengaging with friends and activities she enjoys as well as regular exercise. Follow up Consider a trial of SSRI for depressed mood. AAA-screening ultrasound at current recommended intervals. Monitor for claudication-CT scan showed asymptomatic iliac artery stenosis. Consider adding a statin for peripheral vascular disease w/ AAA. Discharge diagnosis: constipation Secondary discharge diagnosis: Abdominal aortic aneurysm Peripheral vascular disease Time Spent with Patient Time attestation: Total time spent providing and/or coordinating discharge services: 30 EXAM Constitutional Vitals: Temp Pulse Resp BP Pulse Ox 97.8 F 70 20 140/90 97 01/17/21 08:00 01/17/21 08:00 01/17/21 08:00 01/17/21 08:31 01/17/21 08:00 Additional findings Additional findings: Head: Atraumatic, normal inspection. Eyes: normal appearance, no scleral icterus. Neck: full ROM Respiratory: no respiratory distress. Cardiovascular: normal rate and rhythm, S1, S2. GI/Abdominal: soft, nontender, no guarding. Extremities: full range of motion, nontender. Neurological: CN II-XII intact, intact motor, intact sensation. Psychiatric: normal mood. Skin: warm, normal color Discharge Plan Patient/Caregiver Discharge Instructions Activity: increase activity as tolerated Diet: Regular Diet Instructions: Constipation (DC), Colonoscopy (DC) Prescriptions: New acetaminophen [Tylenol Extra Strength] 500 mg Tablet 500 mg PO Q6HP PRN (Reason: Per Pain Protocol) Qty: 30 RF: 0 melatonin 3 mg Tablet 3 mg PO HSP PRN (Reason: Insomnia) Qty: 30 RF: 0 Continued levothyroxine 100 mcg capsule 100 mcg PO QDAY RF: 0 quetiapine 25 mg tablet 25 mg PO QHS RF: 0 quetiapine 50 mg tablet 75 mg PO QHS RF: 0 aspirin 81 mg tablet,delayed release (DR/EC) 81 mg PO QDAY RF: 0 ascorbic acid (vitamin C) 500 mg capsule 500 mg PO QDAY RF: 0 Centrum Silver Women 8 mg iron-400 mcg-300 mcg Tablet 1 tab PO QDAY RF: 0 Discontinued methocarbamol 750 mg tablet 750 mg PO TIDP PRN (Reason: muscle spasm) Qty: 42 RF: 0 Follow Up Plan Follow up with: Lucretia Aguirre MD [Primary Care Provider] - Patient Disposition: Home, Self-Care Discharge Orders: Discharge Order (Routine); Ordered 01/17/21 Ordered By: Lio BOYD VTE Deep Vein Thrombosis/Pulmonary Embolism Present on Admission: No
== END 2021-01-17 12:35 | disposition home or self-care (01) ==
LOC: ED 08:08 → MEDSUR 08:08
PROVIDERS: ADMIT Internal Medicine; ATTEND Internal Medicine

== ENCOUNTER 2021-01-26 17:05 | Observation (INO) ==
[2021-01-26] MEDS ORDERED: ONDANSETRON 4 MG ODT TABLET SL ONE (17:24)
[2021-01-26] MEDS ORDERED: morphine 4 MG/ML VIAL IM ONE ×2 (17:24→19:38)
[2021-01-26] MEDS ORDERED: KETOROLAC 60 MG/2 ML VIAL IM ONE (17:24)
--- NOTE | 2021-01-26 17:30 | Emergency Department Note ---
Back Pain HPI General Chief Complaint: Back Pain/Injury Stated Complaint: back pain Time Seen by Provider: 01/26/21 17:24 Source: patient Limitations: no limitations History of Present Illness HPI Narrative: The patient presents again to the ED with complaints of back pain. She has had this pain for the last 2-1/2 months ever since twisting funny. She was diagnosed with lumbar sprain. Her primary doctor is in the process of trying to obtain an MRI.patient complains of pain in the mid back, worse with movement. She denies urinary issues. She denies diarrhea or constipation. She denies weakness or numbness of the legs. She denies any other injury. Related Data Home Medications Medication Instructions Recorded Confirmed ascorbic acid (vitamin C) 500 mg 500 mg PO QDAY 09/12/20 01/15/21 capsule aspirin 81 mg tablet,delayed 81 mg PO QDAY 09/12/20 01/15/21 release levothyroxine 100 mcg capsule 100 mcg PO QDAY 09/12/20 01/15/21 quetiapine 25 mg tablet 25 mg PO QHS 09/12/20 01/15/21 quetiapine 50 mg tablet 75 mg PO QHS 09/12/20 01/15/21 Centrum Silver Women 1 tab PO QDAY 01/15/21 01/15/21 Previous Rx's Medication Instructions Recorded acetaminophen [Tylenol Extra 500 mg PO Q6HP PRN #30 tab NS 01/17/21 Strength] melatonin 3 mg PO HSP PRN #30 tab NS 01/17/21 hydrocodone-acetaminophen 1 tab PO Q4H PRN #12 tab 01/26/21 Allergies Allergy/AdvReac Type Severity Reaction Status Date / Time Penicillins Allergy Mild itching/ Verified 01/17/21 06:47 rash Review of Systems ROS ROS Narrative: Narrative: All systems ED: reviewed and negative except as stated. [facility] Narrative Patient History Narrative: Narrative: Medical/Surgical/Family History All Active Problems (Updated 01/26/21 @ 19:41 by Zach Castro MD) Acute lumbar myofascial strain (Acute) Osteoarthritis of lumbar spine (Acute) Lumbar spine strain (Acute) Large bowel obstruction (Acute) Abnormality of rectum (Acute) Acute urinary retention (Acute) Aortic aneurysm (Acute) Aortic stenosis, severe (Acute) Weakness generalized (Acute) Compression fracture of vertebra (Acute) Hematuria (Acute) Left flank pain (Acute) Right hip pain (Acute) Constipation (Acute) Social History Smoking Status: Former smoker Exam Narrative Narrative: Narrative: General Limitations: no limitations General appearance: Present alert and in no apparent distress Head Head: Present atraumatic and normal inspection Neck Neck: Present normal inspection, full ROM and trachea midline Chest Chest: Present normal inspection and symmetric chest wall rise Respiratory Respiratory: Present normal lung sounds bilaterally; Absent respiratory distress Cardiovascular Cardiovascular: Present regular rate, normal rhythm and other (+2 pulses bilateral dorsalis pedis) Adbominal Abdominal: Present soft; Absent distention, tenderness, guarding, rebound, rigidity and pulsatile mass Extremities Extremities: Present normal inspection and full ROM Back Back: Present straight leg raise (R) and straight leg raise (L); Absent full ROM (Limited due to pain), tenderness (No vertebral point tenderness), CVA tenderness (R) and CVA tenderness (L) Neurological Neurological: Present alert and oriented X3; Absent motor sensory deficit (Motor and sensation intact in the lower extremities. Sensation intact in the dorsal webspace of both great toes) Psychiatric Psychiatric: Present normal affect and normal mood Skin Skin: Present warm (WNL) and dry Course Vital Signs Vital signs: Vital Signs Temperature 98.6 F 01/26/21 17:06 Pulse Rate 72 01/26/21 17:06 Respiratory Rate 20 01/26/21 17:06 Blood Pressure 161/90 01/26/21 17:06 Pulse Oximetry (%) 100 01/26/21 17:06 Temperature 98.6 F 01/26/21 17:06 Pulse Rate 72 01/26/21 18:11 Respiratory Rate 20 01/26/21 17:06 Blood Pressure 140/62 01/26/21 18:11 Pulse Oximetry (%) 98 01/26/21 18:11 [facility] MDM Narrative Medical decision making narrative: Narrative: The patient presents with acute on chronic back pain. I have a very low concern for acute emergent pathology. We will obtain a noncontrast CT and a UA. We will medicate with IM shots and ODT Zofran. If work-up does not reveal any dangerous pathology, patient will be reassured and discharged and encouraged to continue the outpatient work-up as outlined by her primary doctor. Lab Data Lab results reviewed: Yes I reviewed the patient's lab results. ED POC Tests ED POC Tests: Urine dip shows no sign of infection Radiology Data Radiology results reviewed: Yes I reviewed the patient's radiology results. Discharge Plan Patient/Caregiver Discharge Instructions Pt seen by WORLD HISTORY TEACHER/PA only: No Clinical Impression: Compression fracture of vertebra Qualifiers: Encounter type: initial encounter Fracture of vertebra location: lumbar Lumbar vertebra fracture level: L1 Qualified Code(s): S32.010A - Wedge compression fracture of first lumbar vertebra, initial encounter for closed fracture Activity: resume usual activities as tolerated Instructions: Vertebral Compression Fracture (ED) Activity Restrictions/Additional Instructions: As discussed, you have a compression fracture in your lumbar spine. I think talking to your primary doctor about a referral to a spine surgeon would be worthwhile. Ibuprofen 400 mg every 6 hours as needed for pain Patient Disposition: Home, Self-Care Condition: Fair Follow up with: Lucretia Aguirre MD [Primary Care Provider] - Prescriptions: New hydrocodone-acetaminophen 5-325 mg tablet 1 tab PO Q4H PRN (Reason: pain) Qty: 12 RF: 0 No Action levothyroxine 100 mcg capsule 100 mcg PO QDAY RF: 0 quetiapine 25 mg tablet 25 mg PO QHS RF: 0 quetiapine 50 mg tablet 75 mg PO QHS RF: 0 aspirin 81 mg tablet,delayed release (DR/EC) 81 mg PO QDAY RF: 0 ascorbic acid (vitamin C) 500 mg capsule 500 mg PO QDAY RF: 0 Centrum Silver Women 8 mg iron-400 mcg-300 mcg Tablet 1 tab PO QDAY RF: 0 acetaminophen [Tylenol Extra Strength] 500 mg Tablet 500 mg PO Q6HP PRN (Reason: Per Pain Protocol) Qty: 30 RF: 0 melatonin 3 mg Tablet 3 mg PO HSP PRN (Reason: Insomnia) Qty: 30 RF: 0
--- NOTE | 2021-01-26 18:23 | Cat Scan Report ---
History: Worsening back pain, compression fractures, abdominal aorta aneurysm TECHNIQUE: The abdomen was imaged without oral or intravenous contrast scanning from the diaphragm to the symphysis pubis. Sagittal and coronal reformats were created. The radiation exposure was limited using dose reduction technology. FINDINGS: Lung bases are clear. Liver is normal in size. There is a stable subdiaphragmatic cyst high and posteriorly in the right lobe which measures 6 mm. Spleen is normal in size and homogeneous. In the fundus of gallbladder there is a 1.3 x 1.5 cm densely calcified stone. Gallbladder arteaga not thickened or inflamed and the bile ducts are nondilated. No abnormality seen at the pancreas or adrenals. There are small arterial calcifications within the hilar region of the renal arteries in both kidneys, which mimic small stones. No stone is seen within the collecting system or parenchyma of either kidney. There is no hydronephrosis. There is chronic mild stranding of the posterior pararenal space behind the left kidney. A moderate size fusiform aneurysm is again seen in the mid abdominal aorta. It measures 4.0 x 4.1 cm in diameter. Along the distal end of the aneurysm and there is a critical stenosis due to large amount of plaque. On for differences in the angles in which the measurements were obtained, the aneurysm has not enlarged since the prior CT done on 01/15/21. Fecal impaction is present throughout the colon. Small bowel appears normal. There is a moderate anterior wedge compression fracture at L3 and milder anterior wedge compression fracture involving L1. There is mild displacement of posterior superior corners of both of these vertebra at the central canal. These are not causing significant spinal canal stenosis. There has been further loss of height of the L1 vertebra since 01/15/21 and no change at L3. No other fracture has developed since then. IMPRESSION: Worsening compression fracture at L1, and approximately 25% loss in height. 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 Castro was called with report Interpreted and Authenticated by: Ming Landrum 01/26/21
[2021-01-26] MEDS: HYDROcodone/APAP (PP) 5/325MG TABLET (#4) PO ONE ×2 (19:52→22:47)
--- NOTE | 2021-01-26 21:17 | Internal Med History&Physical ---
HPI History of Present Illness Patient information: Note initiated : 01/26/21 at 9:11 pm Service Date, if different from initiated Date: [] Patient: Arlette Glez a 80 y/o F admitted on for back pain. Chief Complaint: Worsening back pain History of present illness: Ms. Glez is a 80 year old F with a history of osteoporosis, L1 and L3 compression fractures, hypothyroidism and depression who presents the ED with worsening back pain. Patient's back pain started in mid August when she rolled off her bed. Initial evaluation suggested a strain and and initially improved. In mid October she twisted her back while changing sheets on the bed and had significant back pain. She had lumbar spinal films at this facility in mid October that showed degenerative disease but no fractures. About a week later she states she got up too quick from the couch and have worsening back pain. She has had back pain off and on since that time. She was admitted here on 01/13/[address] of the abdomen pelvis at that time showed compression fractures at L1 and L3. Following discharge from that hospitalization she is continued to have off and on back pain. It is in the lower back. Today it became worse. Her caregiver was with her until about noon since then she developed a constant, knifelike, severe low back pain up to 10/10 in intensity that was so severe that she was screaming in pain at times. Because of this she presents the ED. In the emergency department further imaging showed worsening of her L1 compression fracture. She received multiple rounds of intravenous opioids, intravenous nonsteroidals, but was still unable to ambulate independently. Patient does live alone, is currently unable to move herself from bed to transfer to [facility]. She is being hospitalized in observation for further pain control and treatment of worsening lumbar compression fractures. Other than low back pain, the patient's been doing fairly well. She denies any headache, blurry vision, double vision, sore throat, dyspnea, cough, chest pain/tightness/squeezing, lower extremity edema, abdominal pain, nausea or vomiting, no diarrhea, but has had some constipation. No dysuria or urinary frequency, no focal neurologic symptoms, no saddle anesthesia, no bleeding, no bruising. Her mood has been depressed at times. No thoughts of self-harm. Review of Systems All systems: reviewed and no additional remarkable complaints except as stated PFSH PFSH All Active Problems (Updated 01/26/21 @ 21:25 by Elizabeth Rosenthal MD) Constipation (Acute) Depression (Acute) Aortic aneurysm (Acute) Compression fracture of vertebra (Acute) Osteoarthritis of lumbar spine (Acute) Osteoporosis (Acute) Hypothyroidism (Acute) Acute lumbar myofascial strain (Acute) Lumbar spine strain (Acute) Large bowel obstruction (Acute) Abnormality of rectum (Acute) Acute urinary retention (Acute) Aortic stenosis, severe (Acute) Weakness generalized (Acute) Hematuria (Acute) Left flank pain (Acute) Right hip pain (Acute) Medical History (Updated 01/26/21 @ 21:25 by Elizabeth Rosenthal MD) Aortic aneurysm Compression fracture of vertebra Constipation This is a pleasant 80-year-old female with change in bowel habits over the last several years who has not had a screening colonoscopy done. Depression History of Graves' disease Hypothyroidism Osteoarthritis of lumbar spine Osteoporosis Pyloric stenosis, congenital Trigger thumb of both hands Surgical History (Updated 01/26/21 @ 21:16 by Elizabeth Rosenthal MD) History of colonoscopy 12/2020 History of hysterectomy History of repair of pyloric stenosis History of thumb surgery History of tubal ligation Family History (Updated 01/26/21 @ 21:10 by Elizabeth Rosenthal MD) Father Alcoholism Social History (Updated 01/26/21 @ 21:11 by Elizabeth Rosenthal MD) smoking status: Former smoker smoking status start date: 11/24/53 smoking status stop date: 01/13/21 alcohol intake frequency: does not drink substance use type: does not use MEDS/ALLERGIES Home Medications and Allergies Home Medications Medication Instructions Recorded Confirmed Type ascorbic acid (vitamin C) 500 mg 500 mg PO QDAY 09/12/20 01/26/21 History capsule aspirin 81 mg tablet,delayed 81 mg PO QDAY 09/12/20 01/26/21 History release levothyroxine 100 mcg capsule 100 mcg PO QDAY 09/12/20 01/26/21 History quetiapine 25 mg tablet 25 mg PO QHS 09/12/20 01/26/21 History quetiapine 50 mg tablet 75 mg PO QHS 09/12/20 01/26/21 History Centrum Silver Women 1 tab PO QDAY 01/15/21 01/26/21 History acetaminophen [Tylenol Extra 500 mg PO Q6HP PRN #30 tab NS 01/17/21 01/26/21 Rx Strength] melatonin 3 mg PO HSP PRN #30 tab NS 01/17/21 01/26/21 Rx cyclobenzaprine 10 mg PO BID PRN 01/26/21 01/26/21 History Allergies Allergy/AdvReac Type Severity Reaction Status Date / Time Penicillins Allergy Mild itching/ Verified 01/26/21 22:16 rash EXAM Constitutional Vitals: Temp Pulse Resp BP Pulse Ox 98.6 F 71 20 138/80 97 01/26/21 17:06 01/26/21 20:02 01/26/21 17:06 01/26/21 20:02 01/26/21 20:02 GENERAL: Alert, oriented, mildly uncomfortable while at rest on the gurney, tearful at times. Cooperative, appears stated age. HEENT: Atraumatic. PERRL at 2 mm, conjunctiva clear, no scleral icterus. Hearing grossly intact. Oropharynx with moist mucous membranes, no lip or gum lesions, no pharyngeal erythema or exudate. Tongue midline. NECK: Supple without meningismus, no thyromegaly RESPIRATORY: Breath sounds clear bilaterally without wheezes or rhonchi. R espiratory effort is unlabored. CARDIOVASCULAR: Regular rate and rhythm, no murmur gallop or rub. No peripheral edema. Carotid pulses 2+ without bruit. GI: Abdomen soft, nontender, no guarding or rebound. Bowel sounds are present. No hepatosplenomegaly. MUSCULOSKELETAL: Mild tenderness with palpation over the upper to mid lumbar spine. Otherwise no joint erythema or swelling. SKIN: Intact, warm, dry. No lesions. Skin turgor decreased. NEUROLOGIC: Cranial nerves II through XII grossly intact. Muscle mass normal for age. Strength 5/5 in the upper and lower extremities. Sensation intact to light touch bilaterally in the lower extremities. PSYCHIATRIC: Alert, oriented x3, mood is blue, affect is depressed and tearful at times. DATA Data Completed and Pending Labs: Laboratory Results - last 24 hr 01/26/21 19:30 Urine Color Yellow Urine Appearance Cloudy A Urine pH 7.0 Ur Specific [place] 1.013 Urine Protein 30 A Urine Glucose (UA) Negative Urine Ketones Negative Urine Occult Blood Negative Urine Nitrate Negative Urine Bilirubin Negative Urine Urobilinogen Negative Ur Leukocyte Esterase Negative Urine RBC 4 H Urine WBC 9 H Ur Squamous Epith Cells 0 Amorphous Crystals Few A Urine Bacteria Few A Urine Mucus Few A Ur Culture Indicated? Yes Imaging and Cardiology CT scan - abdomen: Status: image reviewed by me Additional comments: IMPRESSION: Worsening compression fracture at L1, and approximately 25% loss in height. 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 Both L1 and L3 have occurred since mid October. -Unable to ambulate due to pain -Intact neurologic exam -Failed multiple doses of opioids and nonsteroidals in the ED #Abnormal urinalysis: Few white cells and red cells, no bacteria, no leukocyte esterase, no nitrite. Without symptoms will await results of culture, treat if indicated #Hypothyroidism: On levothyroxine #Depression: States she is on Seroquel, though that may be more for sleep #Osteoporosis #Constipation: Recently had bowel prep with normal colonoscopy. -At risk for worsening constipation with opioid pain meds Plan: * Hospitalize on observation * PT and OT evaluations * Acetaminophen and plain oxycodone for pain * Morphine for breakthrough * Lidocaine patch to lumbar spine * Follow-up urine culture * Continue Seroquel, clarify home dose * Continue levothyroxine * Consider bisphosphonate to prevent further compression fractures * Bowel care
[2021-01-26] MEDS ORDERED: BISACODYL 10 MG SUPP.RECT PR PRN (21:51)
[2021-01-26] MEDS ORDERED: MELATONIN 3 MG TABLET PO PRN (21:51)
[2021-01-26] MEDS ORDERED: oxyCODONE HCL 5 MG TABLET PO PRN (21:51)
[2021-01-26] MEDS ORDERED: MAGNESIUM HYDROXIDE 30 ML ORAL.SUSP PO PRN (21:51)
[2021-01-26] MEDS ORDERED: ONDANSETRON 4 MG/2 ML VIAL IV PRN (21:51)
[2021-01-26] MEDS ORDERED: ACETAMINOPHEN 325 MG TABLET PO PRN (21:51)
[2021-01-26 22:02] LABS: Appearance,Urine CLOUDY (Clear); Bacteria,Urine FEW /hpf (0); Bilirubin,Urine Negative (Negative); Color,Urine YELLOW; Culture Indicated,Urine Yes; Glucose,Urine (UA) Negative (Negative); Ketones,Urine Negative (Negative); Leukocyte Esterase,Urine Negative /ug (Negative); Mucus,Urine FEW /hpf; Nitrate,Urine Negative (Negative); Protein,Urine 30 mg/dL (Negative); Specific Gravity,Urine 1.013 (1.000-1.035); Urine Amorphous Crystals FEW /hpf; Urine Blood Negative (Negative); Urine RBC 4 /hpf (0-3); Urine Squamous Epithelial Cell 0 /hpf (0-4); Urine WBC 9 /hpf (0-4); Urobilinogen,Urine Negative
[2021-01-26] MEDS: QUEtiapine 25 MG TABLET PO SCH (23:09)
[2021-01-26] MEDS: 0.9 % SODIUM CHLORIDE 10 ML SYRINGE IV SCH (23:09)
[2021-01-26] MEDS: DOCUSATE SODIUM 100 MG CAPSULE PO SCH (23:09)
[2021-01-26] MEDS: SENNOSIDES 1 TABLET PO SCH (23:09)
[2021-01-27] MEDS: 0.9 % SODIUM CHLORIDE 10 ML SYRINGE IV SCH ×3 (05:12→20:45)
[2021-01-27] MEDS: LEVOTHYROXINE 100 MCG TABLET PO SCH (07:22)
[2021-01-27] MEDS: PANTOPRAZOLE 40 MG TABLET PO SCH (07:22)
[2021-01-27 08:22] LABS: POC Creatinine 0.8 mg/dL (0.6-1.2)
[2021-01-27] MEDS: ASPIRIN 81 MG TAB.CHEW PO SCH (09:29)
[2021-01-27] MEDS: ASCORBIC ACID 500 MG TABLET PO SCH (09:29)
[2021-01-27] MEDS: cefTRIAXone 1 GM VIAL IV SCH (09:29)
[2021-01-27] MEDS: DOCUSATE SODIUM 100 MG CAPSULE PO SCH ×2 (09:29→20:43)
[2021-01-27] MEDS: MULTIVIT,THER IRON,CA,FA & MIN 1 TABLET PO SCH (09:29)
[2021-01-27] MEDS: ENOXAPARIN 40 MG/0.4 ML SYRINGE SQ SCH (09:41)
[2021-01-27] MEDS: LIDOCAINE PATCH TOPICAL SCH ×2 (09:42→12:30)
[2021-01-27] MEDS: morphine 4 MG/ML VIAL IV PRN (11:56)
--- NOTE | 2021-01-27 12:24 | Internal Med Progress Note ---
SUBJECTIVE Subjective Patient information: Note initiated : 01/27/21 at 12:23 pm Service Date, if different from initiated Date: [] Patient: Arlette Glez a 80 y/o F admitted on 01/26/21 for back pain. Interval history: 01/26 Ms. Glez is a 80 year old F with a history of osteoporosis, L1 and L3 compression fractures, hypothyroidism and depression who presents the ED with worsening back pain. Patient's back pain started in mid August when she rolled off her bed. Initial evaluation suggested a strain and and initially improved. In mid October she twisted her back while changing sheets on the bed and had significant back pain. She had lumbar spinal films at this facility in mid October that showed degenerative disease but no fractures. About a week later she states she got up too quick from the couch and have worsening back pain. She has had back pain off and on since that time. She was admitted here on 01/13/[address] because of [address] of the abdomen pelvis at that time showed compression fractures at L1 and L3. Following discharge from that hospitalization she is continued to have off and on back pain. It is in the lower back. Today it became worse. Her caregiver was with her until about noon since then she developed a constant, knifelike, severe low back pain up to 10/10 in intensity that was so severe that she was screaming in pain at times. Because of this she presents the ED. In the emergency department further imaging showed worsening of her L1 compression fracture. She received multiple rounds of intravenous opioids, intravenous nonsteroidals, but was still unable to ambulate independently. Niesha peterson does live alone, is currently unable to move herself from bed to transfer to [facility]. She is being hospitalized in observation for further pain control and treatment of worsening lumbar compression fractures. 01/27 Initially the patient did well overnight, minimal pain needs and was able to ambulate with PT this morning. However after being repositioned in bed has had recurrent severe back pain with spasms. Unable to sit up to eat lunch today. Initially did not want to try lidocaine patch, but willing to do so now. Pertinent ROS: Recurrent back pain. No dyspnea, no nausea or vomiting, appetite good. Complaining of dark and foul-smelling urine (though denied any urinary complaints last evening) Constitutional Vitals: Vital Signs Temp Pulse Resp BP Pulse Ox 97.7 F 59 L 18 144/73 99 01/27/21 11:50 01/27/21 11:50 01/27/21 11:50 01/27/21 11:50 01/27/21 11:50 Period Temp Pulse Resp BP Sys/Nascimento Pulse Ox Last 24 Hr 97.4 F-98.6 F 56-72 15-20 100-180/40-155 93-100 Intake and Output 01/26/21 01/27/21 01/27/21 21:59 05:59 13:59 Intake Total 300 Output Total 200 400 Balance 100 -400 Weight 119 lb 120 lb 5 oz 120 lb 5 oz Patient Weight 01/28/21 05:59 Weight 120 lb 5 oz GENERAL: In bed, appears in pain with intermittent spasm RESPIRATORY: Clear, unlabored CARDIOVASCULAR: Regular, no murmur ABDOMEN: Soft, active bowel sounds EXTREMITIES: No edema NEURO: Alert, oriented x3. Have been ambulatory earlier, now movement limited by pain Intake & Output: Intake & Output 01/26/21 01/27/21 01/27/21 21:59 05:59 13:59 Intake Total 300 Output Total 200 400 Balance 100 -400 Weight 119 lb 120 lb 5 oz 120 lb 5 oz Intake: Oral 300 Output: Void Amount 200 400 Other: Meal Breakfast Percent of Meal Consumed 100% Feeding Ability Independent Urine Appearance Cloudy Cloudy Urine Color Dark Yellow Dark Yellow Urine Odor Strong Foul # Voids 1 OBJ DATA Labs Labs: Abnormal Lab Results 01/26/21 19:30 Urine Appearance Cloudy A Urine Protein 30 A Urine RBC 4 H Urine WBC 9 H Amorphous Crystals Few A Urine Bacteria Few A Urine Mucus Few A Meds: Medications Acetaminophen (Acetaminophen 325 Mg Tablet) 650 mg PO Q6HP PRN; Protocol PRN Reason: Per Pain Protocol/Fever > 101 Last Admin: 01/27/21 11:49 Dose: 650 mg Documented by: Ascorbic Acid (Ascorbic Acid 500 Mg Tablet) 500 mg PO DAILY [facility] Last Admin: 01/27/21 09:29 Dose: 500 mg Documented by: Aspirin (Aspirin 81 Mg Tab.Chew) 81 mg PO DAILY [facility] Last Admin: 01/27/21 09:29 Dose: 81 mg Documented by: Bisacodyl (Bisacodyl 10 Mg Supp.Rect) 10 mg [place] Q2-3DAYS PRN PRN Reason: Constipation Ceftriaxone Sodium (Ceftriaxone 1 Gm Vial) 1 gm IV DAILY [facility]; Protocol Last Admin: 01/27/21 09:29 Dose: 1 gm Documented by: Cyclobenzaprine HCl (Cyclobenzaprine 10 Mg Tablet) 10 mg PO TIDP PRN PRN Reason: Muscle Spasm Docusate Sodium (Docusate Sodium 100 Mg Capsule) 100 mg PO BID [facility] Last Admin: 01/27/21 09:29 Dose: 100 mg Documented by: Enoxaparin Sodium (Enoxaparin 40 Mg/0.4 Ml Syringe) 40 mg SQ DAILY [facility] Last Admin: 01/27/21 09:41 Dose: Not Given Documented by: Iron Carb/Multivit/[place]/Folic Acid (Multivit,Ther Iron,Ca,Fa & Min 1 Tablet) 1 tab PO DAILY [facility] Last Admin: 01/27/21 09:29 Dose: 1 tab Documented by: Levothyroxine Sodium (Levothyroxine 100 Mcg Tablet) 100 mcg PO ACB [facility] Last Admin: 01/27/21 07:22 Dose: 100 mcg Documented by: Lidocaine (Lidocaine Patch) 1 patch TOPICAL DAILY@1000 [facility] Last Admin: 01/27/21 09:42 Dose: Not Given Documented by: Magnesium Hydroxide (Magnesium Hydroxide 30 Ml Oral.Susp) 30 ml PO DAILYP PRN PRN Reason: Constipation Melatonin (Melatonin 3 Mg Tablet) 3 mg PO HSP PRN PRN Reason: Insomnia Last Admin: 01/26/21 23:09 Dose: 3 mg Documented by: Morphine Sulfate (Morphine 4 Mg/Ml Vial) 4 mg IV Q4HP PRN; Protocol PRN Reason: Per Pain Protocol Last Admin: 01/27/21 11:56 Dose: 4 mg Documented by: Ondansetron HCl (Ondansetron 4 Mg/2 Ml Vial) 4 mg IV Q6HP PRN PRN Reason: Nausea And Vomiting Oxycodone HCl (Oxycodone Hcl 5 Mg Tablet) 5 mg PO Q4HP PRN; Protocol PRN Reason: Per Pain Protocol Pantoprazole Sodium (Pantoprazole 40 Mg Tablet) 40 mg PO QAMAC [facility] Last Admin: 01/27/21 07:22 Dose: 40 mg Documented by: Quetiapine Fumarate (Quetiapine 25 Mg Tablet) 25 mg PO QHS [facility] Last Admin: 01/26/21 23:09 Dose: 25 mg Documented by: Senna (Sennosides 1 Tablet) 2 tab PO HS [facility] Last Admin: 01/26/21 23:09 Dose: 2 tab Documented by: Sodium Chloride (0.9 % Sodium Chloride 10 Ml Syringe) 10 ml IV Q8 [facility] Last Admin: 01/27/21 05:12 Dose: 10 ml Documented by: A/P Narrative A/P Narrative: Assessment: #Compression fractures of lumbar spine: Worsening L1 compression fracture noticed since 01/13. Both L1 and L3 have occurred since mid October. -Unable to ambulate due to pain -Intact neurologic exam -Failed multiple doses of opioids and nonsteroidals in the ED -Initially improved 01/27, then worsened, with spasm #Abnormal urinalysis: Few white cells and red cells, no bacteria, no leukocyte esterase, no nitrite. Without symptoms will await results of culture, treat if indicated -01/27, complaining of foul smelling and dark urine #Hypothyroidism: On levothyroxine #Depression: States she is on Seroquel, though that may be more for sleep #Osteoporosis #Constipation: Recently had bowel prep with normal colonoscopy. -At risk for worsening constipation with opioid pain meds Plan: * Add cyclobenzaprine for spasm * Continue PT and OT evaluations * Continue acetaminophen and plain oxycodone for pain * Morphine for breakthrough * Lidocaine patch to lumbar spine, patient willing to try it afternoon 01/27 * Begin ceftriaxone with urinary symptoms and abnormal urinalysis * Follow-up urine culture, narrow therapy as able * Continue Seroquel * Continue levothyroxine * Consider bisphosphonate to prevent further compression fractures * Bowel care QUALITY VTE Deep Vein Thrombosis/Pulmonary Embolism Present on Admission: No
[2021-01-27] MEDS: CYCLOBENZAPRINE 10 MG TABLET PO PRN ×2 (12:44→20:44)
[2021-01-27] MEDS: SENNOSIDES 1 TABLET PO SCH (20:43)
[2021-01-27] MEDS: QUEtiapine 25 MG TABLET PO SCH ×4 (21:13→21:45)
[2021-01-28] MEDS: 0.9 % SODIUM CHLORIDE 10 ML SYRINGE IV SCH ×3 (04:50→21:55)
[2021-01-28] MEDS: PANTOPRAZOLE 40 MG TABLET PO SCH (07:24)
[2021-01-28] MEDS: LEVOTHYROXINE 100 MCG TABLET PO SCH (07:24)
[2021-01-28] MEDS: CYCLOBENZAPRINE 10 MG TABLET PO PRN ×2 (07:32→20:13)
[2021-01-28] MEDS: MULTIVIT,THER IRON,CA,FA & MIN 1 TABLET PO SCH (09:05)
[2021-01-28] MEDS: ASCORBIC ACID 500 MG TABLET PO SCH (09:05)
[2021-01-28] MEDS: ASPIRIN 81 MG TAB.CHEW PO SCH (09:06)
[2021-01-28] MEDS: ENOXAPARIN 40 MG/0.4 ML SYRINGE SQ SCH (09:07)
[2021-01-28] MEDS: DOCUSATE SODIUM 100 MG CAPSULE PO SCH ×2 (09:07→20:13)
[2021-01-28] MEDS: cefTRIAXone 1 GM VIAL IV SCH (09:08)
[2021-01-28] MEDS: LIDOCAINE PATCH TOPICAL SCH (10:52)
[2021-01-28] MEDS ORDERED: CITALOPRAM 10 MG TABLET PO ONE ×2 (12:48)
[2021-01-28] MEDS ORDERED: CITALOPRAM 20 MG TABLET PO ONE (13:00)
[2021-01-28] MEDS: morphine 4 MG/ML VIAL IV PRN (13:10)
--- NOTE | 2021-01-28 13:20 | Internal Med Progress Note ---
SUBJECTIVE Subjective Patient information: Note initiated : 01/28/21 at 1:13 pm Service Date, if different from initiated Date: [] Patient: Arlette Glez a 80 y/o F admitted on 01/26/21 for back pain. Chief Complaint: [] Interval history: 01/26 Ms. Glez is a 80 year old F with a history of osteoporosis, L1 and L3 compression fractures, hypothyroidism and depression who presents the ED with worsening back pain. Patient's back pain started in mid August when she rolled off her bed. Initial evaluation suggested a strain and and initially improved. In mid October she twisted her back while changing sheets on the bed and had significant back pain. She had lumbar spinal films at this facility in mid October that showed degenerative disease but no fractures. About a week later she states she got up too quick from the couch and have worsening back pain. She has had back pain off and on since that time. She was admitted here on 01/13/[address] because [address] of the abdomen pelvis at that time showed compression fractures at L1 and L3. Following discharge from that hospitalization she is continued to have off and on back pain. It is in the lower back. Today it became worse. Her caregiver was with her until about noon since then she developed a constant, knifelike, severe low back pain up to 10/10 in intensity that was so severe that she was screaming in pain at times. Because of this she presents the ED. In the emergency department further imaging showed worsening of her L1 compression fracture. She received multiple rounds of intravenous opioids, intravenous nonsteroidals, but was still unable to ambulate independently. Patient does live alone, is currently unable to move herself from bed to transfer to [facility]. She is being hospitalized in observation for further pain control and treatment of worsening lumbar compression fractures. 01/27 Initially the patient did well overnight, minimal pain needs and was able to ambulate with PT this morning. However after being repositioned in bed has had recurrent severe back pain with spasms. Unable to sit up to eat lunch today. Initially did not want to try lidocaine patch, but willing to do so now. 01/28 Continues to be intermittently quite painful. Lidocaine patch may be helping somewhat. Trying intermittent heat and cold packs. Patient seems quite worried and distraught that she may not be able to return home. States it is too painful for her to even get out of bed, tends to get worse later in the day. I encouraged her to get up out of bed for meals, she stated would be too painful. I discussed her history of depression. She states she was started on Seroquel for sleep, and was also told that that was for depression. I suggested we add another medication for both depression and pain control (citalopram) and to give a trial of gabapentin. She is agreeable to that. She has been dealing with intermittent back pain since August, with clear new compression fractures arising somewhere between mid October and late December. Pertinent ROS: Appetite okay, mood is worried, concerned about being home alone. Back with intermittent spasms and severe pain Constitutional Vitals: Vital Signs Temp Pulse Resp BP Pulse Ox 97 F 68 18 108/65 98 01/28/21 11:28 01/28/21 11:28 01/28/21 11:28 01/28/21 11:28 01/28/21 11:28 Period Temp Pulse Resp BP Sys/Nascimento Pulse Ox Last 24 Hr 97 F-98.9 F 62-71 16-18 108-171/60-81 96-100 Intake and Output 01/27/21 01/28/21 01/28/21 21:59 05:59 13:59 Intake Total 1600 480 360 Output Total 1150 850 375 Balance 450 -370 -15 Weight 120 lb 5 oz GENERAL: Sitting in bed eating lunch, looks comfortable at rest RESPIRATORY: Clear bilaterally, unlabored CARDIOVASCULAR: Regular rate and rhythm, 2/6 systolic murmur left sternal border ABDOMEN: Nondistended, soft EXTREMITIES: No edema NEURO: Alert, oriented x3, mood is anxious. Strength is 5/5 at ankle flexion/extension Intake & Output: Intake & Output 01/27/21 01/28/21 01/28/21 21:59 05:59 13:59 Intake Total 1600 480 360 Output Total 1150 850 375 Balance 450 -370 -15 Weight 120 lb 5 oz Intake: Oral 1600 480 360 Output: Void Amount 1150 850 375 Other: Meal Dinner Breakfast Percent of Meal Consumed 100% 100% Feeding Ability Independent Independent Urine Appearance Cloudy Cloudy Cloudy Urine Color Bright Yellow Dark Yellow Bright Yellow Urine Odor Foul Foul Stool Size Moderate Small Stool Color Brown Brown Stool Consistency Dry and Hard Dry and Hard # Bowel Movements 1 OBJ DATA Labs Labs: Abnormal Lab Results 01/26/21 19:30 Urine Appearance Cloudy A Urine Protein 30 A Urine RBC 4 H Urine WBC 9 H Amorphous Crystals Few A Urine Bacteria Few A Urine Mucus Few A Meds: Medications Acetaminophen (Acetaminophen 325 Mg Tablet) 650 mg PO Q6HP PRN; Protocol PRN Reason: Per Pain Protocol/Fever > 101 Last Admin: 01/27/21 11:49 Dose: 650 mg Documented by: Ascorbic Acid (Ascorbic Acid 500 Mg Tablet) 500 mg PO DAILY [facility] Last Admin: 01/28/21 09:05 Dose: 500 mg Documented by: Aspirin (Aspirin 81 Mg Tab.Chew) 81 mg PO DAILY [facility] Last Admin: 01/28/21 09:06 Dose: 81 mg Documented by: Bisacodyl (Bisacodyl 10 Mg Supp.Rect) 10 mg [place] Q2-3DAYS PRN PRN Reason: Constipation Ceftriaxone Sodium (Ceftriaxone 1 Gm Vial) 1 gm IV DAILY [facility]; Protocol Last Admin: 01/28/21 09:08 Dose: 1 gm Documented by: Cyclobenzaprine HCl (Cyclobenzaprine 10 Mg Tablet) 10 mg PO TIDP PRN PRN Reason: Muscle Spasm Last Admin: 01/28/21 07:32 Dose: 10 mg Documented by: Docusate Sodium (Docusate Sodium 100 Mg Capsule) 100 mg PO BID [facility] Last Admin: 01/28/21 09:07 Dose: 100 mg Documented by: Enoxaparin Sodium (Enoxaparin 40 Mg/0.4 Ml Syringe) 40 mg SQ DAILY [facility] Last Admin: 01/28/21 09:07 Dose: 40 mg Documented by: Gabapentin (Gabapentin 300 Mg Capsule) 300 mg PO TID [facility] Iron Carb/Multivit/[place]/Folic Acid (Multivit,Ther Iron,Ca,Fa & Min 1 Tablet) 1 tab PO DAILY [facility] Last Admin: 01/28/21 09:05 Dose: 1 tab Documented by: Levothyroxine Sodium (Levothyroxine 100 Mcg Tablet) 100 mcg PO ACB [facility] Last Admin: 01/28/21 07:24 Dose: 100 mcg Documented by: Lidocaine (Lidocaine Patch) 1 patch TOPICAL DAILY@1000 [facility] Last Admin: 01/28/21 10:52 Dose: 1 patch Documented by: Magnesium Hydroxide (Magnesium Hydroxide 30 Ml Oral.Susp) 30 ml PO DAILYP PRN PRN Reason: Constipation Melatonin (Melatonin 3 Mg Tablet) 3 mg PO HSP PRN PRN Reason: Insomnia Last Admin: 01/26/21 23:09 Dose: 3 mg Documented by: Morphine Sulfate (Morphine 4 Mg/Ml Vial) 4 mg IV Q4HP PRN; Protocol PRN Reason: Per Pain Protocol Last Admin: 01/28/21 13:10 Dose: 4 mg Documented by: Ondansetron HCl (Ondansetron 4 Mg/2 Ml Vial) 4 mg IV Q6HP PRN PRN Reason: Nausea And Vomiting Oxycodone HCl (Oxycodone Hcl 5 Mg Tablet) 5 mg PO Q4HP PRN; Protocol PRN Reason: Per Pain Protocol Pantoprazole Sodium ([facility] 40 Mg [facility]t) [facility] Last Admin: 01/28/21 07:24 Dose: 40 mg Documented by: Quetiapine Fumarate (Quetiapine 25 Mg Tablet) 75 mg PO [facility] Last Admin: 01/27/21 21:38 Dose: 75 mg Documented by: Senna (Sennosides 1 Tablet) 2 tab PO [facility] Last Admin: 01/27/21 20:43 Dose: 2 tab Documented by: Sodium Chloride (0.9 % Sodium Chloride 10 Ml Syringe) 10 ml IV Q8 [facility] Last Admin: 01/28/21 04:50 Dose: 10 ml Documented by: A/P Narrative A/P Narrative: Assessment: #Compression fractures of lumbar spine: Worsening L1 compression fracture noticed since 01/13. Both L1 and L3 have occurred since mid October. -Unable to ambulate due to pain -Intact neurologic exam -Failed multiple doses of opioids and nonsteroidals in the ED -Initially improved 01/27, then worsened, with spasm -Intermittent severe pain on 01/28, would not be safe for discharge to home alone #Abnormal urinalysis: Few white cells and red cells, no bacteria, no leukocyte esterase, no nitrite. Without symptoms will await results of culture, treat if indicated -01/27, complaining of foul smelling and dark urine #Hypothyroidism: On levothyroxine #Depression: States she is on Seroquel, though that may be more for sleep -Agreeable to try citalopram for mood and adjunct pain control #Osteoporosis #Constipation: Recently had bowel prep with normal colonoscopy. -At risk for worsening constipation with opioid pain meds Plan: * Add citalopram daily * Gabapentin 3 times daily as further pain adjunct * Heat and cold to back * Continue lidocaine patch * Continue acetaminophen, plain oxycodone with morphine for breakthrough * Cyclobenzaprine for spasm * Continue PT and OT evaluations * Continue ceftriaxone with urinary symptoms and abnormal urinalysis * Follow-up urine culture, narrow therapy as able * Continue Seroquel, home dose clarified (75 mg at bedtime) * Continue levothyroxine * Consider bisphosphonate to prevent further compression fractures * Bowel care * Discharge planning, may need stay in SNF QUALITY VTE Deep Vein Thrombosis/Pulmonary Embolism Present on Admission: No
[2021-01-28] MEDS: GABAPENTIN 300 MG CAPSULE PO SCH ×2 (15:23→20:13)
[2021-01-28] MEDS: SENNOSIDES 1 TABLET PO SCH (20:13)
[2021-01-28] MEDS: QUEtiapine 25 MG TABLET PO SCH (20:14)
[2021-01-29] MEDS: 0.9 % SODIUM CHLORIDE 10 ML SYRINGE IV SCH (06:00)
[2021-01-29] MEDS: PANTOPRAZOLE 40 MG TABLET PO SCH (06:29)
[2021-01-29] MEDS: LEVOTHYROXINE 100 MCG TABLET PO SCH (06:30)
[2021-01-29] MEDS: CYCLOBENZAPRINE 10 MG TABLET PO PRN (06:37)
[2021-01-29] MEDS: ENOXAPARIN 40 MG/0.4 ML SYRINGE SQ SCH (08:14)
[2021-01-29] MEDS: cefTRIAXone 1 GM VIAL IV SCH (08:14)
[2021-01-29] MEDS: MULTIVIT,THER IRON,CA,FA & MIN 1 TABLET PO SCH (08:14)
[2021-01-29] MEDS: ASCORBIC ACID 500 MG TABLET PO SCH (08:14)
[2021-01-29] MEDS: DOCUSATE SODIUM 100 MG CAPSULE PO SCH (08:14)
[2021-01-29] MEDS: ASPIRIN 81 MG TAB.CHEW PO SCH (08:14)
[2021-01-29] MEDS: GABAPENTIN 300 MG CAPSULE PO SCH (08:14)
[2021-01-29] MEDS ORDERED: CITALOPRAM 20 MG TABLET PO SCH (09:00)
[2021-01-29] MEDS: LIDOCAINE PATCH TOPICAL SCH (09:40)
--- NOTE | 2021-01-29 10:30 | Discharge Summary ---
Discharge Provider Provider Patient information: Note initiated : 01/29/21 at 10:29 am Service Date, if different from initiated Date: [] Patient: Arlette Glez 80 y/o F admitted on 01/26/21 for back pain. Chief Complaint: [] Date of admission: 01/26/21 21:48 Discharge date: 01/29/21 Primary care physician: Lucretia Aguirre Attending physician on admission: Elizabeth Rosenthal Attending physician on discharge: Elizabeth Rosenthal Discharge Meds Discharge Medications Home Medications ascorbic acid (vitamin C) 500 mg capsule 500 mg PO QDAY 09/12/20 [History Confirmed 01/26/21 Last Taken 01/26/21] aspirin 81 mg tablet,delayed release 81 mg PO QDAY 09/12/20 [History Confirmed 01/26/21 Last Taken 01/26/21] levothyroxine 100 mcg capsule 100 mcg PO QDAY 09/12/20 [History Confirmed 01/26/21 Last Taken 01/26/21] Centrum Silver Women 1 tab PO QDAY 01/15/21 [History Confirmed 01/26/21 Last Taken 01/26/21] acetaminophen [Tylenol Extra Strength] 500 mg PO Q6HP PRN #30 tab NS 01/17/21 [Rx Confirmed 01/26/21 Last Taken 01/26/21] melatonin 3 mg PO HSP PRN #30 tab NS 01/17/21 [Rx Confirmed 01/26/21 Last Taken 01/25/21] cyclobenzaprine 10 mg PO BID PRN 01/26/21 [History Confirmed 01/26/21 Last Taken 01/26/21] quetiapine [Seroquel] 75 mg PO QHS 01/28/21 [History Confirmed 01/28/21 Last Taken 01/27/21 75 mg] bisacodyl 10 mg AL Q2-3DAYS PRN #12 ea 01/29/21 [Rx Last Taken Unknown] cefdinir 300 mg PO BID #6 cap 01/29/21 [Rx Last Taken Unknown] citalopram 10 mg PO DAILY #30 tab 01/29/21 [Rx Last Taken Unknown] docusate sodium [DOK] 100 mg PO BID #14 cap 01/29/21 [Rx Last Taken Unknown] gabapentin 300 mg PO TID #60 cap 01/29/21 [Rx Last Taken Unknown] lidocaine 1 patch TOPICAL DAILY@1000 #14 ea 01/29/21 [Rx Last Taken Unknown] magnesium hydroxide 30 ml PO DAILYP PRN #3000 ml 01/29/21 [Rx Last Taken Unknown] oxycodone 5 mg PO Q4HP PRN #14 tab 01/29/21 [Rx Last Taken Unknown] sennosides [Senna Lax] 2 tab PO HS #28 tab 01/29/21 [Rx Last Taken Unknown] COURSE Hospital Course Hospital course: Summary: Patient is a 80-year-old lady with history of L1 and L3 compression fractures found on CT 01/13/2021 (had occurred in the interim between plain films in mid October). She came in with worsening back pain, was found to have worsening L1 compression fracture. Failed attempts of pain control in the ED. She was hospitalized, was treated with acetaminophen, opioids and cyclobenzaprine for spasm. Citalopram and gabapentin were added as adjunct (citalopram also for mood). At times she would be pain-free, at other times would have severe pain associated with spasm with minimal movements. As she lives alone, placement at [facility] was arranged for further care and skilled therapies with the hopes she will be able to recover function to return home. Patient was also found to have acute cystitis with Aerococcus urinae. She is treated with ceftriaxone in the hospital, will continue treatment with cefdinir. 01/26 Ms. Glez is a 80 year old F with a history of osteoporosis, L1 and L3 compression fractures, hypothyroidism and depression who presents the ED with worsening back pain. Patient's back pain started in mid August when she rolled off her bed. Initial evaluation suggested a strain and and initially improved. In mid October she twisted her back while changing sheets on the bed and had significant back pain. She had lumbar spinal films at this facility in mid October that showed degenerative disease but no fractures. About a week later she states she got up too quick from the couch and have worsening back pain. She has had back pain off and on since that time. She was admitted here on 01/13/[address] of the abdomen pelvis at that time showed compression fractures at L1 and L3. Following discharge from that hospitalization she is continued to have off and on back pain. It is in the lower back. Today it became worse. Her caregiver was with her until about noon since then she developed a constant, knifelike, severe low back pain up to 10/10 in intensity that was so severe that she was screaming in pain at times. Because of this she presents the ED. In the emergency department further imaging showed worsening of her L1 compression fracture. She received multiple rounds of intravenous opioids, intravenous nonsteroidals, but was still unable to ambulate independently. Patient does live alone, is currently unable to move herself from bed to transfer to [facility]. She is being hospitalized in observation for further pain control and treatment of worsening lumbar compression fractures. 01/27 Initially the patient did well overnight, minimal pain needs and was able to ambulate with PT this morning. However after being repositioned in bed has had recurrent severe back pain with spasms. Unable to sit up to eat lunch today. Initially did not want to try lidocaine patch, but willing to do so now. 01/28 Continues to be intermittently quite painful. Lidocaine patch may be helping somewhat. Trying intermittent heat and cold packs. Patient seems quite worried and distraught that she may not be able to return home. States it is too painful for her to even get out of bed, tends to get worse later in the day. I encouraged her to get up out of bed for meals, she stated would be too painful. I discussed her history of depression. She states she was started on Seroquel for sleep, and was also told that that was for depression. I suggested we add another medication for both depression and pain control (citalopram) and to give a trial of gabapentin. She is agreeable to that. She has been dealing with intermittent back pain since August, with clear new compression fractures arising somewhere between mid October and late December. Discharge diagnosis: Progressive L1 compression fracture Secondary discharge diagnosis: L3 compression fracture Acute cystitis with Aerococcus urinae Depression Constipation Abdominal aortic aneurysm, identified 01/13/2021, unchanged on imaging this admission Time Spent with Patient Time spent: Less than 30 minutes EXAM Constitutional Vitals: Temp Pulse Resp BP Pulse Ox 97.7 F 63 20 134/69 98 01/29/21 08:00 01/29/21 08:00 01/29/21 08:00 01/29/21 08:00 01/29/21 08:00 GENERAL: In bed, appears comfortable while not moving, grimaces in pain when attempting to roll in bed RESPIRATORY: Clear anterior/laterally, unlabored CARDIOVASCULAR: Regular rate and rhythm with 2/6 systolic murmur in the precordium unchanged ABDOMEN: Uncomfortable with palpation, no guarding, no rebound, active bowel sounds (complaining of needing to have a bowel movement) EXTREMITIES: No edema NEURO: Alert, oriented x3. Mood is down. She appears worried. Strength is 5/5 in the lower extremities, no clonus. Discharge Data Imaging and Cardiology CT scan - abdomen: Additional comments: IMPRESSION: Worsening compression fracture at L1, and approximately 25% loss in height. 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 to the aneurysm Cholelithiasis Discharge Plan Patient/Caregiver Discharge Instructions Activity: as per physical therapy and resume usual activities as tolerated Diet: Regular Diet Instructions: Vertebral Compression Fracture (ED) Prescriptions: New bisacodyl 10 mg Suppository 10 mg AL Q2-3DAYS PRN (Reason: Constipation) Qty: 12 RF: 0 citalopram 20 mg Tablet 10 mg PO DAILY Qty: 30 RF: 0 docusate sodium [DOK] 100 mg Capsule 100 mg PO BID Qty: 14 RF: 0 magnesium hydroxide 400 mg/5 mL Suspension 30 ml PO DAILYP PRN (Reason: Constipation) Qty: 3000 RF: 0 lidocaine 5 % Adhesive Patch,Medicated 1 patch topical DAILY@1000 Qty: 14 RF: 0 gabapentin 300 mg Capsule 300 mg PO TID Qty: 60 RF: 0 oxycodone 5 mg Tablet 5 mg PO Q4HP PRN (Reason: Per Pain Protocol) Qty: 14 RF: 0 sennosides [Senna Lax] 8.6 mg Tablet 2 tab PO HS Qty: 28 RF: 0 cefdinir 300 mg capsule 300 mg PO BID Qty: 6 RF: 0 Continued levothyroxine 100 mcg capsule 100 mcg PO QDAY RF: 0 aspirin 81 mg tablet,delayed release (DR/EC) 81 mg PO QDAY RF: 0 ascorbic acid (vitamin C) 500 mg capsule 500 mg PO QDAY RF: 0 Centrum Silver Women 8 mg iron-400 mcg-300 mcg Tablet 1 tab PO QDAY RF: 0 acetaminophen [Tylenol Extra Strength] 500 mg Tablet 500 mg PO Q6HP PRN (Reason: Per Pain Protocol) Qty: 30 RF: 0 melatonin 3 mg Tablet 3 mg PO HSP PRN (Reason: Insomnia) Qty: 30 RF: 0 cyclobenzaprine 10 mg Tablet 10 mg PO BID PRN (Reason: Muscle Spasm) RF: 0 quetiapine [Seroquel] 50 mg Tablet 75 mg PO QHS RF: 0 Other Ambulatory Orders: OT Discharge Order (Routine) Location: None Selected Ordered By: Elizabeth Rosnethal Physical Therapy at Discharge - General (Routine) Location: None Selected Ordered By: Elizabeth Rosenthal Follow Up Plan Follow up with: Lucretia Aguirre MD [Primary Care Provider] - Patient Disposition: Xfer SNF Prognosis: Fair Rehab Potential: Fair I certify that the patient requires SNF services: Yes Overall status at discharge: patient is not back to baseline Discharge Orders: Discharge Order (Routine); Ordered 01/29/21 Ordered By: Elizabeth Rosenthal QUALITY VTE Deep Vein Thrombosis/Pulmonary Embolism Present on Admission: No
== END 2021-01-29 11:39 ==
LOC: MEDSUR 17:05 → ED 17:05 → MEDSUR 21:48
PROVIDERS: ADMIT Internal Medicine; ATTEND Internal Medicine

== ENCOUNTER 2023-01-21 14:28 | Inpatient (IN) ==
[2023-01-21] MEDS ORDERED: IOPAMIDOL 100 ML BOTTLE IV ONE (14:29)
--- NOTE | 2023-01-21 15:29 | XRay Report ---
CLINICAL INFORMATION: constipation COMPARISON: 01/15/2021 FINDINGS: The stool gas pattern is unremarkable. There is no free air, soft tissue mass, organomegaly or pathologic calcification. IMPRESSION: Normal abdomen Interpreted and Authenticated by: Ramirez Allen 01/21/23
[2023-01-21] MEDS ORDERED: POLYETHYLENE GLYCOL 3350 17 GM PACKET PO ONE (15:36)
--- NOTE | 2023-01-21 16:23 | Cat Scan Report ---
CLINICAL INFORMATION: Severe back pain COMPARISON: Two-view chest x-ray 12/20/2020 TECHNIQUE: 0.625 mm helical slices were obtained from the mid C7 to the mid L1 vertebral bodies. Following reconstruction, 2.5 mm coronal, sagittal, and axial reformations (angle to the disc spaces) were processed. Exam was reviewed at bone and soft tissue windows.The exam was performed using radiation dose optimization techniques including, but not limited to, automated exposure control, adjustment of the mA and/or kV according to patient size and use of iterative reconstruction technique. FINDINGS: The thoracic spine shows mild rightward curve of the lower thoracic and upper lumbar region. No abnormal subluxation. Severe T6 and L1 compression fractures feature over 70% loss vertebral height. At L1, there is 5 mm retrolisthesis of the posterior superior fragment where it impinges the thecal sac and possibly the conus medullaris. The T6 vertebral body fracture is anatomically aligned. Diffuse osteoporosis noted. At T9-10 severe degenerative disc disease noted with partial fusion across the anterior disc space. The thoracic cord is unremarkable. Centrilobular emphysema appreciated. No soft tissue abnormality At C5-6 moderate broad disc spur complex results in moderate central canal and moderate bilateral IV foraminal narrowing with exiting C6 nerve root impingement. The C6-7 and C7-T1 disc levels are normal. All thoracic disc levels show degeneration but no evidence of extrusion or protrusion. Central canal and IV foramina are normal width at each thoracic level. IMPRESSION: 1. Severe T6 and L1 compression fractures with over 70% loss vertebral height. At L1, there is 5 mm posterior subluxation of posterior fragment where it impinges the thecal sac. The T6 fracture is anatomically aligned. Diffuse osteoporosis noted 2. C5-6: Moderate broad disc spur complex resulting in moderate central canal and bilateral IV foraminal narrowing with exiting C6 nerve root impingement. All thoracic disc show degeneration, but no extrusion or protrusion. 3. Centrilobular emphysema Interpreted and Authenticated by: Ramirez Allen 01/21/23
[2023-01-21 16:39] LABS: POC Calcium, Ionized 0.94 (1.16-1.32); POC Creatinine 1.3 (0.6-1.2); POC Potassium 4.9 (3.3-5.1)
[2023-01-21 17:27] LABS: Basophils # (Auto) 0.04 K/mcL (0.00-0.30); Basophils % (Auto) 0.2 % (0.0-2.0); Eosinophils # (Auto) 0.06 K/mcL (0.00-0.70); Eosinophils % (Auto) 0.4 % (0.0-7.0); Hemoglobin 15.4 g/dL (11.2-15.7); Lymphocytes % (Auto) 12.6 % (15.5-49.0); Mean Corpuscular HGB Conc 33.5 g/dL (31.0-36.0); Mean Platelet Volume 10.1 fL (8.8-12.5); Monocytes # (Auto) 0.78 K/mcL (0.10-0.90); Monocytes % (Auto) 4.7 % (1.0-12.0); Neutrophils % (Auto) 81.6 % (38.0-78.0); Platelet Count 245 K/mcL (140-440); RBC 4.74 M/mcL (3.59-5.38); WBC 16.7 K/mcL (4.5-11.0)
[2023-01-21] MEDS ORDERED: HYDROCODONE/APAP 7.5/325MG TABLET PO ONE (18:07)
[2023-01-21] MEDS ORDERED: metroNIDAZOLE 500 MG/100 ML BAG IV ONE (18:40)
[2023-01-21] MEDS ORDERED: LEVOFLOXACIN 750 MG/150 ML BAG IV ONE (18:40)
--- NOTE | 2023-01-21 20:47 | Emergency Department Note ---
Abdominal Pain HPI General Chief Complaint: Constipation Stated Complaint: ABD pain, rectal bleeding Time Seen by Provider: 01/21/23 15:05 Source: patient Mode of arrival: ambulatory Limitations: no limitations History of Present Illness HPI Narrative: 82-year-old female patient with history of hypertension, depression, hypothyroidism, chronic low back pain presents to the ER with complaints of bright red blood per rectum and abdominal pain that started several days ago. She states that she had a normal stool about 3 days ago without blood. She had blood in her stool last night, and then this morning noted a toilet full of blood but was unable to pass stool. She does complain of chronic constipation. The patient is on a daily aspirin only. She has no history of GI bleeding. No history of diverticulitis. She denies F/C/S. Denies dysuria hematuria. She denies nausea or vomiting. She does endorse severe midthoracic spinal back pain. This started about 2 weeks ago. She recalls no injury. She denies a history of osteoporosis. She has been taking ibuprofen daily for her back pain and states that this has been very helpful. Related Data Home Medications Medication Instructions Recorded Confirmed ascorbic acid (vitamin C) 500 mg 500 mg PO QDAY 09/12/20 01/21/23 capsule aspirin 81 mg tablet,delayed 81 mg PO QDAY 09/12/20 01/21/23 release multivit with 1 tab PO QDAY 01/15/21 01/21/23 [id number] 8 mg iron-400 mcg-300 mcg tablet (Centrum Silver Women) cyclobenzaprine 10 mg tablet 10 mg PO BID PRN Muscle Spasm 01/26/21 01/21/23 quetiapine 50 mg tablet (Seroquel) 75 mg PO QHS 01/28/21 01/21/23 amlodipine 10 mg tablet 10 mg PO QDAY 01/21/23 01/21/23 levothyroxine 100 mcg tablet 100 mcg PO QDAY 01/21/23 01/21/23 Previous Rx's Medication Instructions Recorded melatonin 3 mg tablet 3 mg PO HSP PRN Insomnia #30 tabs 01/17/21 quetiapine 25 mg tablet (Seroquel) 75 mg PO QHS #15 tabs 01/29/21 Allergies Allergy/AdvReac Type Severity Reaction Status Date / Time Penicillins Allergy Mild itching/ Verified 01/21/23 13:41 rash Review of Systems ROS ROS Narrative: Narrative: All systems ED: reviewed and negative except as stated. PFSH Narrative Patient History Narrative: Narrative: Medical/Surgical/Family History All Active Problems (Updated 01/21/23 @ 21:02 by Harmony Santana PA-C) Colitis (Acute) Constipation (Acute) Depression (Acute) Aortic aneurysm (Acute) Compression fracture of vertebra (Acute) Osteoarthritis of lumbar spine (Acute) Osteoporosis (Acute) Hypothyroidism (Acute) Acute lumbar myofascial strain (Acute) Lumbar spine strain (Acute) Large bowel obstruction (Acute) Abnormality of rectum (Acute) Acute urinary retention (Acute) Aortic stenosis, severe (Acute) Weakness generalized (Acute) Hematuria (Acute) Left flank pain (Acute) Right hip pain (Acute) Medical History Aortic aneurysm Compression fracture of vertebra Constipation This is a pleasant 80-year-old female with change in bowel habits over the last several years who has not had a screening colonoscopy done. Depression History of Graves' disease Hypothyroidism Osteoarthritis of lumbar spine Osteoporosis Pyloric stenosis, congenital Trigger thumb of both hands Surgical History History of colonoscopy 12/2020 History of hysterectomy History of repair of pyloric stenosis History of thumb surgery History of tubal ligation Family History Father Alcoholism Social History Smoking Status: Current every day smoker and Never smoker Alcohol Intake Frequency: does not drink Substance Use: does not use Exam Narrative Narrative: General: AOx3, NAD, nontoxic appearing. Pleasant and conversant. HEENT: PERRL, EOMI, normocephalic. Moist mucous membranes. Chest: Symmetric, no pain to palpation Respiratory: Lungs clear to auscultation bilaterally. No respiratory distress. Unlabored breathing. Heart: Regular rate and rhythm, no murmurs/clicks/rubs. Back: She is exquisitely tender to palpation to the mid thoracic spinous processes around the level of T8-9 Rectum: She has luke bright red blood. Rectal exam reveals no masses or hemorrhoids Abdomen: Significant left lower quadrant and periumbilical tenderness. She has negative Mariee's and McBurney's rebound tenderness. She is moderately distended, normal bowel tones. Extremities: Warm and well perfused. No edema. DP 2+ bilaterally. No venous stasis. Neuro: No focal deficits. Cranial nerves II-XII grossly normal. Skin: Warm dry, no rashes or lesions, no cyanosis. Psych: Normal mood and affect Heme/Lymph: No abnormal bruising General Limitations: no limitations Course Course Course Narrative: 82-year-old female presents with bright red blood per rectum x24 hours and lower abdominal pain. She is also complaining of severe mid thoracic spinal back pain. Reevaluation(s) Reevaluation #1: Obtain basic labs Obtain CT of the thoracic spine to rule out compression fracture Rectal exam reveals bright red blood per rectum---> obtain CT of the abdomen pelvis with contrast to rule out bleeding diverticuli or other source of lower GI bleed Reevaluation #2: CBC with a white blood cell count of 16,700 and neutrophil count of 13.64. Chemistry panel with a BUN of 27 and a creatinine 1.3. Last recorded creatinine was 0.8 in 02/11 CT scan of the thoracic spine shows a severe T6 and L1 compression fracture with over 70% loss of vertebral height. At L1 there is a 5 mm posterior subluxation of posterior fragment where it impinges the thecal sac. Reevaluation #3: CT scan of the abdomen pelvis with contrast shows extensive concentric wall thickening along the mid transverse colon extending to the rectosigmoid region with associated pericolonic inflammatory changes. Findings are consistent with colitis with infection, inflammatory or ischemic as the possible etiology. There is a aneurysmal dilatation of the infrarenal abdominal aorta measuring 5.7 cm increased from size of 3.9 from previous study. There is nonspecific bladder wall thickening. There is mild diverticulosis but no diverticulitis. Vital Signs Vital signs: Vital Signs Temperature 98.4 F 01/21/23 14:33 Pulse Rate 87 01/21/23 14:33 Respiratory Rate 14 01/21/23 14:33 Blood Pressure 141/84 01/21/23 14:33 Pulse Oximetry (%) 96 01/21/23 14:33 Oxygen Delivery Method Room Air 01/21/23 14:33 Temperature 98.2 F 01/22/23 01:26 Pulse Rate 103 H 01/22/23 01:26 Respiratory Rate 20 01/22/23 01:26 Blood Pressure 180/109 01/22/23 01:26 Pulse Oximetry (%) 96 01/22/23 01:26 Oxygen Delivery Method Room Air 01/22/23 01:26 MDM MDM Narrative Medical decision making narrative: Lower GI bleed Colitis T6, L1 compression fractures Cause of her GI bleed etiology is likely infectious given her elevated white bl ood cell count and left shift. However, if she continues to have excessive bleeding nd ischemia would be in the differential. I have spoken to Dr. Lyman, general surgery and he is happy to consult on this patient during her admission. The patient has received IV levofloxacin and metronidazole preemptively for infectious colitis (has an allergy to penicillin). I have allowed her to eat a liquid diet. She will need admission for further monitoring of her GI bleed and infection and DR. Arredondo has accepted the patient for admission. Lab Data 01/21/23 16:36 Labs: Lab Results 01/21/23 01/21/23 Range/Units 16:36 16:36 WBC 16.7 H (4.5-11.0) K/mcL RBC 4.74 (3.59-5.38) M/mcL Hgb 15.4 (11.2-15.7) g/dL Hct 46.0 H (34.1-44.9) % POC Hct 47.0 (36-48) MCV 97.0 (80.0-100.0) fL MCH 32.5 (26.0-34.0) pg MCHC 33.5 (31.0-36.0) g/dL RDW 14.0 (11.5-14.5) % Plt Count 245 (140-440) K/mcL MPV 10.1 (8.8-12.5) fL Immature Gran % (Auto) 0.5 (0.0-0.5) % Neut % (Auto) 81.6 H (38.0-78.0) % Lymph % (Auto) 12.6 L (15.5-49.0) % Gila % (Auto) 4.7 (1.0-12.0) % Eos % (Auto) 0.4 (0.0-7.0) % Baso % (Auto) 0.2 (0.0-2.0) % Lymph # (Auto) 2.10 (1.50-4.80) K/mcL Gila # (Auto) 0.78 (0.10-0.90) K/mcL Eos # (Auto) 0.06 (0.00-0.70) K/mcL Baso # (Auto) 0.04 (0.00-0.30) K/mcL Immature Gran # 0.09 H (0.00-0.05) K/mcl Absolute Neutrophils 13.64 H (1.80-8.00) K/mcL POC Sodium 135 (133-145) POC Potassium 4.9 (3.3-5.1) POC Chloride 109 H (96-108) POC Total CO2 20.0 L (22-30) POC BUN 27 H (6-20) POC Creatinine 1.3 H (0.6-1.2) POC Glucose 106 H (70-105) POC WB Ioniz Calcium 0.94 L (1.16-1.32) Discharge Plan Patient/Caregiver Discharge Instructions Pt seen by IP COUNSEL/PA only: Yes Clinical Impression: Colitis, Compression fracture of vertebra Patient Disposition: Xfer As Inpt ([facility]) Discharge Date/Time: 01/22/23 01:26
--- NOTE | 2023-01-21 22:37 | Internal Med History&Physical ---
HPI History of Present Illness Patient information: Note initiated : 01/21/23 at 10:26 pm Service Date, if different from initiated Date: [] Patient: Arlette Glez a 82 y/o F admitted on for ABD pain, rectal bleeding. Chief Complaint: [] Chief complaint: Blood in stool History of present illness: Ms. Glez is a 82 year old F with Hx of spinal compression Fractures. She presents with two days of bright red blood per rectum. She denies abdominal pain, N/V. There was no antecedent diarrhea. She reports weight loss over the last year. Colonoscopy two years ago was completely normal. She denies post prandial abdominal pain but does note lack of desire to eat. She also c/o back pain. Workup in the ED notes WBC 16, normal HCO3, normal Hgb. CT A/P notes inflammation of the colon from transverse to sigmoid. Also noted is diffuse extensive calcification of the aorta and bowel vasculature. CT of the spine notes extensive compression fractures of L1 and T6 along with diffuse osteoporosis. Constitutional Constitutional: Present as per HPI EENT Eyes: Present as per HPI Cardiovascular Cardiovascular: Present as per HPI Respiratory Respiratory: Present as per HPI Gastrointestinal Gastrointestinal: Present as per HPI and hematochezia Musculoskeletal Musculoskeletal: Present as per HPI Integumentary Integumentary: Present as per HPI Neurological Neurological: Present as per HPI Endocrine Endocrine: Present as per HPI PFSH PFSH All Active Problems (Updated 01/21/23 @ 21:02 by Harmony Santana PA-C) Colitis (Acute) Constipation (Acute) Depression (Acute) Aortic aneurysm (Acute) Compression fracture of vertebra (Acute) Osteoarthritis of lumbar spine (Acute) Osteoporosis (Acute) Hypothyroidism (Acute) Acute lumbar myofascial strain (Acute) Lumbar spine strain (Acute) Large bowel obstruction (Acute) Abnormality of rectum (Acute) Acute urinary retention (Acute) Aortic stenosis, severe (Acute) Weakness generalized (Acute) Hematuria (Acute) Left flank pain (Acute) Right hip pain (Acute) Medical History Aortic aneurysm Compression fracture of vertebra Constipation This is a pleasant 80-year-old female with change in bowel habits over the last several years who has not had a screening colonoscopy done. Depression History of Graves' disease Hypothyroidism Osteoarthritis of lumbar spine Osteoporosis Pyloric stenosis, congenital Trigger thumb of both hands Surgical History History of colonoscopy 12/2020 History of hysterectomy History of repair of pyloric stenosis History of thumb surgery History of tubal ligation Family History Father Alcoholism Social History (Updated 01/26/21 @ 21:11 by Elizabeth Rosenthal MD) smoking status: Current every day smoker and Never smoker smoking status start date: 11/24/53 smoking status stop date: 01/13/21 alcohol intake frequency: does not drink substance use type: does not use MEDS/ALLERGIES Home Medications and Allergies Home Medications Medication Instructions Recorded Confirmed Type ascorbic acid (vitamin C) 500 mg 500 mg PO QDAY 09/12/20 01/21/23 History capsule aspirin 81 mg tablet,delayed 81 mg PO QDAY 09/12/20 01/21/23 History release multivit with 1 tab PO QDAY 01/15/21 01/21/23 History [place]-kgmt-ID-lutein 8 mg iron-400 mcg-300 mcg tablet (Centrum Silver Women) melatonin 3 mg tablet 3 mg PO HSP PRN Insomnia #30 tabs 01/17/21 01/21/23 Rx cyclobenzaprine 10 mg tablet 10 mg PO BID PRN Muscle Spasm 01/26/21 01/21/23 History quetiapine 50 mg tablet (Seroquel) 75 mg PO QHS 01/28/21 01/21/23 History quetiapine 25 mg tablet (Seroquel) 75 mg PO QHS #15 tabs 01/29/21 01/21/23 Rx amlodipine 10 mg tablet 10 mg PO QDAY 01/21/23 01/21/23 History levothyroxine 100 mcg tablet 100 mcg PO QDAY 01/21/23 01/21/23 History Allergies Allergy/AdvReac Type Severity Reaction Status Date / Time Penicillins Allergy Mild itching/ Verified 01/21/23 13:41 rash EXAM Constitutional Vitals: Temp Pulse Resp BP Pulse Ox O2 Del Method 98.4 F 88 14 154/94 99 Room Air 01/21/23 14:33 01/21/23 22:01 01/21/23 14:33 01/21/23 22:01 01/21/23 22:01 01/21/23 16:07 General appearance: no acute distress Exam: sitting in the bedside chair, conversant, comfortable ENT ENT exam: Present mucous membranes moist Respiratory Respiratory exam: Present normal respiratory exam and CTAB Cardiovascular Cardiovascular exam: Present normal rate and rhythm GI/Abdominal GI/Abdominal exam: Present soft, diminished bowel sounds and tenderness Additional comments: LLQ abd tenderness DATA Data Completed and Pending Labs: Labs from last 24 hours 01/21/23 01/21/23 16:36 16:36 WBC 16.7 H RBC 4.74 Hgb 15.4 Hct 46.0 H POC Hct 47.0 MCV 97.0 MCH 32.5 MCHC 33.5 RDW 14.0 Plt Count 245 MPV 10.1 Immature Gran % (Auto) 0.5 Neut % (Auto) 81.6 H Lymph % (Auto) 12.6 L [place] % (Auto) 4.7 Eos % (Auto) 0.4 Baso % (Auto) 0.2 Lymph # (Auto) 2.10 [place] # (Auto) 0.78 Eos # (Auto) 0.06 Baso # (Auto) 0.04 Immature Gran # 0.09 H Absolute Neutrophils 13.64 H POC Sodium 135 POC Potassium 4.9 POC Chloride 109 H POC Total CO2 20.0 L POC BUN 27 H POC Creatinine 1.3 H POC Glucose 106 H POC WB Ioniz Calcium 0.94 L A/P Assessment and plan (1) Colitis: Assessment and plan: - ischemic vs infectious - NPO - IVF - Abx (levofloxacin and metronidazole, PCN allergic) Status: Acute Time Spent With Patient Time: Total time spent is greater than 50% in coordination of care (as documented) at patient's floor/unit and/or counseling patient: Initial: Total time with patient: 40 - 54 minutes
[2023-01-22] MEDS ORDERED: ACETAMINOPHEN 325 MG TABLET PO PRN (01:29)
[2023-01-22] MEDS ORDERED: ONDANSETRON 4 MG/2 ML VIAL IV PRN (01:29)
[2023-01-22] MEDS: DEXTROSE 5%-LR 1,000 ML IV SCH ×5 (02:57→20:03)
--- NOTE | 2023-01-22 03:36 | Cat Scan Report ---
CLINICAL INFORMATION: Abdominal pain and rectal bleeding COMPARISON: Abdomen and pelvic CT two years prior: 01/26/2021 TECHNIQUE: Following enteric contrast, 80 cc of Isovue-370 were injected intravenously, and 60 seconds later, 0.625 mm helical slices were obtained from the mid heart through the subtrochanteric regions. Following reconstruction, 2.5 mm sagittal, coronal and axial reformatted images were processed and reviewed at bone, lung and soft tissue windows. Five minutes later, 0.625 mm helical slices were obtained from the mid heart through the kidneys and viewed at soft tissue windows.The exam was performed using radiation dose optimization techniques including, but not limited to, automated exposure control, adjustment of the mA and/or kV according to patient size and use of iterative reconstruction technique. FINDINGS: The lung bases show mild dilatation and wall thickening of the bronchi compatible with chronic bronchitis. No infiltrates. There is minimal atelectasis or fibrosis seen in the posterior right lower lobe. No effusion. Visualized heart is normal in size. Abdominal images show moderate fatty change within the liver. 7 mm simple cyst in the superior right hepatic lobe is stable. A 15 mm solitary stone in the gallbladder is seen-as before. Gallbladder wall is normal thickness-no evidence of cholecystitis. The intrahepatic and common bile duct normal caliber CBD is 6 mm. The pancreas, both adrenal glands and spleen are normal in size configuration and attenuation without focal lesion. Few simple cysts in both kidneys are stable. There is mild atrophy of the right kidney 7 cm in length. Left kidney is normal 9.4 cm in length. There is no free air, free fluid or adenopathy. Fusiform infrarenal abdominal aortic aneurysm has increased in diameter from 4 cm to 4.5 cm since the comparison CT two years prior. There is moderate fibrofatty calcific plaque in the wall of the aneurysm. Calcific plaque seen in the SMA origin resulting in stenoses estimated to be 50%. Celiac artery is normal. 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 A 50% or greater stenosis is present in the proximal renal arteries. There are greater than 90% stenoses of both common iliac arteries. Pelvic images show hysterectomy oophorectomy changes. There is mild diffuse wall thickening urinary bladder. Marked concentric wall thickening of the distal transverse, splenic flexure and descending colon appreciated with edema in the pericolonic fat. This pattern would be most typical for ischemic colitis. Few sigmoid diverticula appreciated, but no evidence of diverticulitis. The remaining large bowel small bowel and stomach are grossly normal. Bone windows show severe L1 compression fracture which has progressed dramatically since the comparison CT two years prior. It is displaced 5 mm posteriorly into the central canal where there is mild impingement of the thecal sac. Mild chronic L3 compression fracture unchanged. Diffuse osteoporosis noted. IMPRESSION: 1. Marked wall thickening of the distal transverse, splenic flexure and descending colon with pericolonic edema. This pattern would be most typical for ischemic colitis. Infectious or inflammatory colitis is not excluded. 2. Large (4.5 cm) diameter fusiform infrarenal abdominal aortic aneurysm. This has increased from the CT two years prior. Suggest interventional radiology referral in consideration for endovascular graft. 3. 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 This would predispose ischemic colitis. 4. Mild atrophy right kidney likely related to renal artery stenosis. Left kidney is unremarkable. 5. Solitary gallstone in the gallbladder. Gallbladder and bile ducts are otherwise normal. 6. Mild diffuse wall thickening urinary bladder which may indicate cystitis or other infiltrative pathology please correlate with urinalysis 7. Severe L1 compression fracture progressing dramatically since the remote study two years prior. Mild chronic L3 compression fracture stable. Diffuse osteoporosis noted Interpreted and Authenticated by: Ramirez Allen 01/22/23
[2023-01-22] MEDS: metroNIDAZOLE 500 MG/100 ML BAG IV SCH ×5 (04:29→23:35)
[2023-01-22] MEDS: morphine 4 MG/ML VIAL IV PRN (06:07)
[2023-01-22] MEDS: 0.9 % SODIUM CHLORIDE 10 ML SYRINGE IV SCH ×3 (06:37→20:08)
[2023-01-22 07:50] LABS: Basophils # (Auto) 0.04 K/mcL (0.00-0.30); Basophils % (Auto) 0.3 % (0.0-2.0); Eosinophils # (Auto) 0.12 K/mcL (0.00-0.70); Eosinophils % (Auto) 0.9 % (0.0-7.0); Hematocrit 39.2 % (34.1-44.9); Hemoglobin 13.2 g/dL (11.2-15.7); Lymphocytes # (Auto) 1.29 K/mcL (1.50-4.80); Lymphocytes % (Auto) 9.6 % (15.5-49.0); Mean Cell Volume 96.1 fL (80.0-100.0); Mean Corpuscular HGB Conc 33.7 g/dL (31.0-36.0); Mean Platelet Volume 9.9 fL (8.8-12.5); Monocytes # (Auto) 0.74 K/mcL (0.10-0.90); Monocytes % (Auto) 5.5 % (1.0-12.0); Neutrophils % (Auto) 83.3 % (38.0-78.0); Platelet Count 204 K/mcL (140-440); RBC 4.08 M/mcL (3.59-5.38); Red Cell Distribution Width 14.1 % (11.5-14.5); WBC 13.5 K/mcL (4.5-11.0)
[2023-01-22 08:56] LABS: Blood Urea Nitrogen 21 mg/dL (8-23); Calcium 8.9 mg/dL (8.6-10.4); Carbon Dioxide 18 mmol/L (22-30); Chloride 105 mmol/L (96-108); Glomerular Filtration Rate 42; Glucose 124 mg/dL (70-105); Phosphorous 2.9 mg/dL (2.5-4.5)
[2023-01-22] MEDS: amLODIPine 10 MG TABLET PO SCH (09:01)
[2023-01-22] MEDS: LEVOTHYROXINE 100 MCG TABLET PO SCH (09:01)
--- NOTE | 2023-01-22 09:22 | Internal Med Progress Note ---
SUBJECTIVE Subjective Patient information: Note initiated : 01/22/23 at 9:17 am Service Date, if different from initiated Date: [] Patient: Arlette Glez a 82 y/o F admitted on 01/22/23 for ABD pain, rectal bleeding. Chief Complaint: [] Interval history: Ms. Glez is a 82 year old F with Hx of spinal compression Fractures. She presents with two days of bright red blood per rectum. She denies abdominal pain, N/V. There was no antecedent diarrhea. She reports weight loss over the last year. Colonoscopy two years ago was completely normal. She denies post prandial abdominal pain but does note lack of desire to eat. She also c/o back pain. Workup in the ED notes WBC 16, normal HCO3, normal Hgb. CT A/P notes inflammation of the colon from transverse to sigmoid. Also noted is diffuse extensive calcification of the aorta and bowel vasculature. CT of the spine notes extensive compression fractures of L1 and T6 along with diffuse osteoporo sis. Jan 1, WBC improved to 13 from 16. Hgb 13. Had blood bowel movement this morning. Will continue IV ABx and IVF. Constitutional Vitals: Vital Signs Temp Pulse Resp BP Pulse Ox O2 Del Method 98.4 F 90 20 160/87 99 Room Air 01/22/23 07:45 01/22/23 07:45 01/22/23 07:45 01/22/23 07:45 01/22/23 07:45 01/22/23 07:45 Period Temp Pulse Resp BP Sys/Nascimento Pulse Ox O2 Del Method O2 Flow Rate Last 24 Hr 98.2 F-98.6 F 40-103 14-20 131-193/84-134 92-100 Room Air-Room Air Intake and Output 01/21/23 01/22/23 01/22/23 19:59 03:59 11:59 Intake Total 250 Output Total 175 Balance 250 -175 Weight 51.71 kg 50.916 kg Intake & Output: Intake & Output 01/21/23 01/22/23 01/22/23 19:59 03:59 11:59 Intake Total 250 Output Total 175 Balance 250 -175 Weight 51.71 kg 50.916 kg Intake: IV 250 Output: Urine Catheter Amount 175 Other: Urine Color Dark Yellow Urine Odor Strong Stool Size Small Stool Color Bright Red Blood Stool Consistency Loose # Bowel Movements 1 General appearance: average body habitus and no acute distress Head Head exam: Present atraumatic, normal inspection and normocephalic ENT ENT exam: Present mucous membranes moist Respiratory Respiratory exam: Present normal respiratory exam and CTAB Cardiovascular Cardiovascular exam: Present normal rate and rhythm GI/Abdominal GI/Abdominal exam: Present soft, diminished bowel sounds and tenderness Neurological Exam Neurological exam: Present CN II-XII intact and oriented X3 OBJ DATA Labs 01/22/23 06:38 01/22/23 06:37 Labs: Abnormal Lab Results 01/22/23 01/22/23 01/21/23 06:38 06:37 16:36 WBC 13.5 H Hct Neut % (Auto) 83.3 H Lymph % (Auto) 9.6 L Lymph # (Auto) 1.29 L Immature Gran # Absolute Neutrophils 11.21 H POC Chloride 109 H Carbon Dioxide 18 L POC Total CO2 20.0 L POC BUN 27 H Creatinine 1.2 H POC Creatinine 1.3 H Glucose 124 H POC Glucose 106 H POC WB Ioniz Calcium 0.94 L 01/21/23 16:36 WBC 16.7 H Hct 46.0 H Neut % (Auto) 81.6 H Lymph % (Auto) 12.6 L Lymph # (Auto) Immature Gran # 0.09 H Absolute Neutrophils 13.64 H POC Chloride Carbon Dioxide POC Total CO2 POC BUN Creatinine POC Creatinine Glucose POC Glucose POC WB Ioniz Calcium Meds: Medications Acetaminophen (Acetaminophen 325 Mg Tablet) 650 mg PO Q6HP PRN; Protocol PRN Reason: Per Pain Protocol/Fever > 101 Amlodipine Besylate (Amlodipine 10 Mg Tablet) 10 mg PO QDAY [facility] Last Admin: 01/22/23 09:01 Dose: 10 mg Dextrose/Lactated Ringer's (Dextrose 5%-Lactated Ringers) 1,000 mls @ 166 mls/hr IV .Q6H2M [facility] Last Admin: 01/22/23 02:57 Dose: 166 mls/hr Levofloxacin (Levaquin) 750 mg in 150 mls @ 100 mls/hr IV DAILY [facility]; Protocol Metronidazole (Flagyl) 500 mg in 100 mls @ 100 mls/hr IV Q6H [facility]; Protocol Last Admin: 01/22/23 07:59 Dose: 100 mls/hr Levothyroxine Sodium (Levothyroxine 100 Mcg Tablet) 100 mcg PO QDAY [facility] Last Admin: 01/22/23 09:01 Dose: 100 mcg Morphine Sulfate (Morphine 4 Mg/Ml Vial) 4 mg IV Q4HP PRN; Protocol PRN Reason: Per Pain Protocol Last Admin: 01/22/23 06:07 Dose: 4 mg Ondansetron HCl (Ondansetron 4 Mg/2 Ml Vial) 4 mg IV Q6HP PRN PRN Reason: Nausea And Vomiting Quetiapine Fumarate (Quetiapine 25 Mg Tablet) 75 mg PO QHS [facility] Sodium Chloride (0.9 % Sodium Chloride 10 Ml Syringe) 10 ml IV Q8 [facility] Last Admin: 01/22/23 06:37 Dose: Not Given A/P Assessment and plan (1) Colitis: Assessment and plan: - ischemic vs infectious - NPO - IVF - Abx (levofloxacin and metronidazole, PCN allergic) Status: Acute Time Spent With Patient Time: Total time spent is greater than 50% in coordination of care (as documented) at patient's floor/unit and/or counseling patient: Subsequent: Total time with patient: 25 - 34 minutes QUALITY Stroke Symptom Onset Unknown: No VTE Deep Vein Thrombosis/Pulmonary Embolism Present on Admission: No
[2023-01-22] MEDS: LEVOFLOXACIN 750 MG/150 ML BAG IV SCH (10:05)
--- NOTE | 2023-01-22 13:28 | Internal Med Progress Note ---
SUBJECTIVE Subjective Patient information: Note initiated : 01/22/23 at 1:23 pm Service Date, if different from initiated Date: [] Patient: Arlette Glez a 82 y/o F admitted on 01/22/23 for ABD pain, rectal bleeding. Chief Complaint: [] Interval history: Ms. Glez is a 82 year old F with Hx of spinal compression Fractures. She presents with two days of bright red blood per rectum. She denies abdominal pain, N/V. There was no antecedent diarrhea. She reports weight loss over the last year. Colonoscopy two years ago was completely normal. She denies post prandial abdominal pain but does note lack of desire to eat. She also c/o back pain. Workup in the ED notes WBC 16, normal HCO3, normal Hgb. CT A/P notes inflammation of the colon from transverse to sigmoid. Also noted is diffuse extensive calcification of the aorta and bowel vasculature. CT of the spine notes extensive compression fractures of L1 and T6 along with diffuse osteoporo sis. Jan 1 WBC improved to 13 from 16. Hgb 13. Had blood bowel movement this morning. Will continue IV ABx and IVF. 3/ PHYSICAL EXAM: General: Alert, Awake, No acute Distress Eyes/N/T: EOMI, no scleral icterus, Head/Neck: neck supple, full ROM, CV: RRR, No murmurs, Pulm: Clear b/l, no wheezing/rhonchi/rales, no respiratory distress Abd: soft, nontender, decreased BS x4 Ext: no clubbing/cyanosis/edema, nontender Neuro: Alert, no focal deficits, moves all extremities, sensations intact b/l upper/lower Psychiatric: Skin: warm/dry, normal color Constitutional Vitals: Vital Signs Temp Pulse Resp BP Pulse Ox O2 Del Method 98.2 F 87 20 156/88 100 Room Air 01/22/23 12:00 01/22/23 12:00 01/22/23 12:00 01/22/23 12:01/22/23 12:01/22/23 12:00 Period Temp Pulse Resp BP Sys/Nascimento Pulse Ox O2 Del Method O2 Flow Rate Last 24 Hr 98.2 F-98.6 F 40-103 14-20 131-193/84-134 92-100 Room Air-Room Air Intake and Output 01/22/23 01/22/2323 03:59 11:59 19:59 Intake Total 250 1310 100 Output Total 250 Balance 250 1060 100 Weight 50.916 kg Intake & Output: Intake & Output 01/22/23 01/22/23 01/22/23 03:59 11:59 19:59 Intake Total 250 1310 100 Output Total 250 Balance 250 1060 100 Weight 50.916 kg Intake: IV 250 1250 100 Dextrose 5%-Lactated Ringers 1, 1000 000 ml @ 166 mls/hr IV .Q6H2M [facility] Rx#:[id number] Oral 60 Output: Urine Catheter Amount 175 Void Amount 75 Other: Urine Appearance Cloudy Urine Color Yellow Urine Odor Strong Stool Size Small Stool Color Bright Red Blood Stool Consistency Loose # Bowel Movements 1 OBJ DATA Labs 01/22/23 06:38 01/22/23 06:37 Labs: Abnormal Lab Results 01/22/23 01/22/23 01/21/23 06:38 06:37 16:36 WBC 13.5 H Hct Neut % (Auto) 83.3 H Lymph % (Auto) 9.6 L Lymph # (Auto) 1.29 L Immature Gran # Absolute Neutrophils 11.21 H POC Chloride 109 H Carbon Dioxide 18 L POC Total CO2 20.0 L POC BUN 27 H Creatinine 1.2 H POC Creatinine 1.3 H Glucose 124 H POC Glucose 106 H POC WB Ioniz Calcium 0.94 L 01/21/23 16:36 WBC 16.7 H Hct 46.0 H Neut % (Auto) 81.6 H Lymph % (Auto) 12.6 L Lymph # (Auto) Immature Gran # 0.09 H Absolute Neutrophils 13.64 H POC Chloride Carbon Dioxide POC Total CO2 POC BUN Creatinine POC Creatinine Glucose POC Glucose POC WB Ioniz Calcium Meds: Medications Acetaminophen (Acetaminophen 325 Mg Tablet) 650 mg PO Q6HP PRN; Protocol PRN Reason: Per Pain Protocol/Fever > 101 Amlodipine Besylate (Amlodipine 10 Mg Tablet) 10 mg PO QDAY [facility] Last Admin: 01/22/23 09:01 Dose: 10 mg Dextrose/Lactated Ringer's (Dextrose 5%-Lactated Ringers) 1,000 mls @ 166 mls/hr IV .Q6H2M [facility] Last Admin: 01/22/23 10:09 Dose: 166 mls/hr Levofloxacin (Levaquin) 750 mg in 150 mls @ 100 mls/hr IV DAILY [facility]; Protocol Last Infusion: 01/22/23 11:35 Dose: Infused Metronidazole (Flagyl) 500 mg in 100 mls @ 100 mls/hr IV Q6H [facility]; Protocol Last Infusion: 01/22/23 12:45 Dose: Infused Levothyroxine Sodium (Levothyroxine 100 Mcg Tablet) 100 mcg PO QDAY [facility] Last Admin: 01/22/23 09:01 Dose: 100 mcg Morphine Sulfate (Morphine 4 Mg/Ml Vial) 4 mg IV Q4HP PRN; Protocol PRN Reason: Per Pain Protocol Last Admin: 01/22/23 06:07 Dose: 4 mg Ondansetron HCl (Ondansetron 4 Mg/2 Ml Vial) 4 mg IV Q6HP PRN PRN Reason: Nausea And Vomiting Quetiapine Fumarate (Quetiapine 25 Mg Tablet) 75 mg PO QHS [facility] Sodium Chloride (0.9 % Sodium Chloride 10 Ml Syringe) 10 ml IV Q8 [facility] Last Admin: 01/22/23 06:37 Dose: Not Given A/P Narrative A/P Narrative: A: *colitis: ischemic vs infectious *GIB: 2/2 above -hgb stable *Metabolic acidosis: 2/2 above *KALYANI on CKD III: *Hypothyroidism: *Depression: * P: -NPO - IVF -Abx (levofloxacin and metronidazole, PCN allergic) - - -Continue appropriate home medications, hold home aspirin - -PT/OT -CM for placement needs -ppx: SCD Time Spent With Patient Time: Total time spent is greater than 50% in coordination of care (as documented) at patient's floor/unit and/or counseling patient: QUALITY Stroke Symptom Onset Unknown: No VTE Deep Vein Thrombosis/Pulmonary Embolism Present on Admission: No
[2023-01-22] MEDS: QUEtiapine 25 MG TABLET PO SCH (20:03)
[2023-01-22] MEDS ORDERED: QUETIAPINE 50 MG PO SCH (21:00)
[2023-01-23] MEDS: DEXTROSE 5%-LR 1,000 ML IV SCH ×2 (01:40→03:37)
[2023-01-23] MEDS: 0.9 % SODIUM CHLORIDE 10 ML SYRINGE IV SCH ×3 (05:14→22:00)
[2023-01-23] MEDS: metroNIDAZOLE 500 MG/100 ML BAG IV SCH ×4 (05:14→23:22)
[2023-01-23 06:47] LABS: Basophils # (Auto) 0.04 K/mcL (0.00-0.30); Basophils % (Auto) 0.5 % (0.0-2.0); Eosinophils # (Auto) 0.14 K/mcL (0.00-0.70); Eosinophils % (Auto) 1.8 % (0.0-7.0); Hemoglobin 13.8 g/dL (11.2-15.7); Lymphocytes # (Auto) 1.56 K/mcL (1.50-4.80); Mean Cell Volume 95.8 fL (80.0-100.0); Mean Corpuscular HGB Conc 33.7 g/dL (31.0-36.0); Monocytes # (Auto) 0.51 K/mcL (0.10-0.90); Monocytes % (Auto) 6.5 % (1.0-12.0); Neutrophils % (Auto) 70.9 % (38.0-78.0); Platelet Count 187 K/mcL (140-440); RBC 4.28 M/mcL (3.59-5.38); Red Cell Distribution Width 14.1 % (11.5-14.5); WBC 7.8 K/mcL (4.5-11.0)
[2023-01-23] MEDS: LEVOTHYROXINE 100 MCG TABLET PO SCH (07:17)
[2023-01-23] MEDS ORDERED: MELATONIN 3 MG TABLET PO PRN (07:30)
--- NOTE | 2023-01-23 07:31 | Internal Med Progress Note ---
SUBJECTIVE Subjective Patient information: Note initiated : 01/23/23 at 7:26 am Service Date, if different from initiated Date: [] Patient: Arlette Glez a 82 y/o F admitted on 01/22/23 for ABD pain, rectal bleeding. Chief Complaint: [] Interval history: Ms. Glez is a 82 year old F with Hx of spinal compression Fractures. She presents with two days of bright red blood per rectum. She denies abdominal pain, N/V. There was no antecedent diarrhea. She reports weight loss over the last year. Colonoscopy two years ago was completely normal. She denies post prandial abdominal pain but does note lack of desire to eat. She also c/o back pain. Workup in the ED notes WBC 16, normal HCO3, normal Hgb. CT A/P notes inflammation of the colon from transverse to sigmoid. Also noted is diffuse extensive calcification of the aorta and bowel vasculature. CT of the spine notes extensive compression fractures of L1 and T6 along with diffuse osteoporo sis. Mar 1 WBC improved to 13 from 16. Hgb 13. Had blood bowel movement this morning. Will continue IV ABx and IVF. 3/2 Patient has Anxiety mostly related to whether or not she will eventually be able to go to her apartment as it is being inspected. Poor sleep because of anxiety. She does have a little bit of crampy abdominal pain on occasion which she relates to gas. She said she had a scant blood in her bowel movement this morning. Leukocytosis resolved. Mild hypophosphatemia. Mild hypocalcemia. Review of Systems: denies headache/fever/chills/nausea/vomiting/chest or abdominal pain /cough/dyspnea/diarrhea. Otherwise see above. PHYSICAL EXAM General: Alert, Awake, No acute Distress Eyes/N/T: EOMI, no scleral icterus, Head/Neck: neck supple, full ROM, CV: RRR, No murmurs, Pulm: Clear b/l, no wheezing/rhonchi/rales, no respiratory distress Abd: soft, nontender, + BS x4 Ext: no clubbing/cyanosis/edema, nontender Neuro: Alert, no focal deficits, moves all extremities, sensations intact b/l upper/lower Psychiatric: Skin: warm/dry, normal color Constitutional Vitals: Vital Signs Temp Pulse Resp BP Pulse Ox O2 Del Method 98.7 F 61 18 142/79 93 Room Air 01/23/23 02:35 01/23/23 02:35 01/23/23 02:35 01/23/23 02:35 01/23/23 02:35 01/23/23 02:35 Period Temp Pulse Resp BP Sys/Nascimento Pulse Ox O2 Del Method O2 Flow Rate Last 24 Hr 98.1 F-99.0 F 56-90 17-20 141-160/75-105 93-100 Room Air-Room Air Intake and Output 01/22/23 01/23/23 01/23/23 19:59 03:59 11:59 Intake Total 1300 1100 100 Output Total 850 1625 Balance 450 -525 100 Weight 53.07 kg Intake & Output: Intake & Output 01/22/23 01/23/23 01/23/23 19:59 03:59 11:59 Intake Total 1300 1100 100 Output Total 850 1625 Balance 450 -525 100 Weight 53.07 kg Intake: IV 1200 1100 100 Dextrose 5%-Lactated Ringers 1, 1000 1000 000 ml @ 166 mls/hr IV .Q6H2M [facility] Rx#:[id number] Oral 100 0 Output: Urine Catheter Amount 850 1625 Other: Urine Appearance Sediment Clear Uretheral ([place]) Clear Urine Color Yellow Yellow Uretheral ([place]) Yellow Urine Odor Strong OBJ DATA Labs 01/23/23 06:05 01/22/23 06:37 Labs: Abnormal Lab Results 01/22/23 01/22/23 01/21/23 06:38 06:37 16:36 WBC 13.5 H Hct Neut % (Auto) 83.3 H Lymph % (Auto) 9.6 L Lymph # (Auto) 1.29 L Immature Gran # Absolute Neutrophils 11.21 H POC Chloride 109 H Carbon Dioxide 18 L POC Total CO2 20.0 L POC BUN 27 H Creatinine 1.2 H POC Creatinine 1.3 H Glucose 124 H POC Glucose 106 H POC WB Ioniz Calcium 0.94 L 01/21/23 16:36 WBC 16.7 H Hct 46.0 H Neut % (Auto) 81.6 H Lymph % (Auto) 12.6 L Lymph # (Auto) Immature Gran # 0.09 H Absolute Neutrophils 13.64 H POC Chloride Carbon Dioxide POC Total CO2 POC BUN Creatinine POC Creatinine Glucose POC Glucose POC WB Ioniz Calcium Meds: Medications Acetaminophen (Acetaminophen 325 Mg Tablet) 650 mg PO Q6HP PRN; Protocol PRN Reason: Per Pain Protocol/Fever > 101 Amlodipine Besylate (Amlodipine 10 Mg Tablet) 10 mg PO QDAY [facility] Last Admin: 01/22/23 09:01 Dose: 10 mg Dextrose/Lactated Ringer's (Dextrose 5%-Lactated Ringers) 1,000 mls @ 166 mls/hr IV .Q6H2M [facility] Last Admin: 01/23/23 03:37 Dose: 166 mls/hr Levofloxacin (Levaquin) 750 mg in 150 mls @ 100 mls/hr IV DAILY [facility]; Protocol Last Infusion: 01/22/23 11:35 Dose: Infused Metronidazole (Flagyl) 500 mg in 100 mls @ 100 mls/hr IV Q6H [facility]; Protocol Last Infusion: 01/23/23 06:33 Dose: Infused Levothyroxine Sodium (Levothyroxine 100 Mcg Tablet) 100 mcg PO QDAY [facility] Last Admin: 01/23/23 07:17 Dose: 100 mcg Morphine Sulfate (Morphine 4 Mg/Ml Vial) 4 mg IV Q4HP PRN; Protocol PRN Reason: Per Pain Protocol Last Admin: 01/22/23 06:07 Dose: 4 mg Ondansetron HCl (Ondansetron 4 Mg/2 Ml Vial) 4 mg IV Q6HP PRN PRN Reason: Nausea And Vomiting Quetiapine Fumarate (Quetiapine 25 Mg Tablet) 75 mg PO QHS [facility] Last Admin: 01/22/23 20:03 Dose: 75 mg Sodium Chloride (0.9 % Sodium Chloride 10 Ml Syringe) 10 ml IV Q8 [facility] Last Admin: 01/23/23 05:14 Dose: 10 ml A/P Narrative A/P Narrative: A: *Colitis: ischemic vs infectious *GIB(BRPBR): 2/2 above -hgb stable *SIRS: leukocytosis/tachycardia *Metabolic acidosis: 2/2 above *KALYANI on CKD III: improving *Hypothyroidism: *Depression: *Hypophosphatemia: P: -clears started -IVF's d/c -Abx (levofloxacin and metronidazole, PCN allergic) -stool cx and c. diff -monitor h&h -Continue appropriate home medications, hold home aspirin. cont norvasc/levothyroxin/seroquel - -PT/OT -CM for placement needs -ppx: SCD Time Spent With Patient Time: Total time spent is greater than 50% in coordination of care (as documented) at patient's floor/unit and/or counseling patient: Subsequent: Total time with patient: 50 - 65 Minutes QUALITY Stroke Symptom Onset Unknown: No VTE Deep Vein Thrombosis/Pulmonary Embolism Present on Admission: No
[2023-01-23 07:33] LABS: ALT/SGPT 8 U/L (<40); AST/SGOT 15 U/L (<32); Albumin 3.5 gm/dL (3.2-5.2); Albumin/Globulin Ratio 1.2 (1.0-2.3); Alkaline Phosphatase 111 U/L (39-117); Bilirubin,Direct < 0.2 mg/dL (0-0.3); Bilirubin,Total 0.3 mg/dL (0.1-1.0); Blood Urea Nitrogen 10 mg/dL (8-23); Calcium 8.5 mg/dL (8.6-10.4); Carbon Dioxide 25 mmol/L (22-30); Chloride 106 mmol/L (96-108); Glomerular Filtration Rate 47; Glucose 107 mg/dL (70-105); Lactate Dehydrogenase 156 U/L (135-225); Phosphorous 2.1 mg/dL (2.5-4.5); Triglycerides 223 mg/dL (<150); Uric Acid 4.4 mg/dL (2.5-8.0)
[2023-01-23] MEDS: amLODIPine 10 MG TABLET PO SCH (08:12)
[2023-01-23] MEDS: LEVOFLOXACIN 750 MG/150 ML BAG IV SCH (08:13)
[2023-01-23] MEDS ORDERED: diphenhydrAMINE 25 MG CAPSULE PO PRN (10:34)
--- NOTE | 2023-01-23 11:30 | Discharge Summary ---
Discharge Provider Provider IMPORTANT FOLLOW-UP INFORMATION FOR PCP: Patient information: Note initiated : 01/23/23 at 11:29 am Service Date, if different from initiated Date: [] Patient: Arlette Glez a 82 y/o F admitted on 01/22/23 for ABD pain, rectal bleeding. Chief Complaint: [] Date of admission: 01/22/23 01:26 Discharge date: 01/24/23 Primary care physician: Lucretia Aguirre Consults: 01/21/23 Consult to Physician [CONS] Stat Comment: Consulting Provider: Zeferino Lyman Reason For Exam: Physician to Consult COURSE Hospital Course Hospital course: Interval history: Ms. Glez is a 82 year old F with Hx of spinal compression Fractures. She presents with two days of bright red blood per rectum. She denies abdominal pain, N/V. There was no antecedent diarrhea. She reports weight loss over the last year. Colonoscopy two years ago was completely normal. She denies post prandial abdominal pain but does note lack of desire to eat. She also c/o back pain. Workup in the ED notes WBC 16, normal HCO3, normal Hgb. CT A/P notes inflammation of the colon from transverse to sigmoid. Also noted is diffuse extensive calcification of the aorta and bowel vasculature. CT of the spine notes extensive compression fractures of L1 and T6 along with diffuse osteoporosis. Mar 1 WBC improved to 13 from 16. Hgb 13. Had blood bowel movement this morning. Will continue IV ABx and IVF. 3/2 Patient has Anxiety mostly related to whether or not she will eventually be able to go to her apartment as it is being inspected. Poor sleep because of anxiety. She does have a little bit of crampy abdominal pain on occasion which she relates to gas. She said she had a scant blood in her bowel movement this morning. Leukocytosis resolved. Mild hypophosphatemia. Mild hypocalcemia. 3/3 Patient feels better today less anxious. Slept well. Had little bit of nausea in the evening but better today. No bleeding overnight. Acidosis resolved. Creatinine good. Patient stable for discharge home A: *Colitis: ischemic vs infectious *GIB(BRPBR): 2/2 above *SIRS: leukocytosis/tachycardia *Metabolic acidosis: 2/2 above *KALYANI on CKD III: improving *Hypothyroidism: *Depression: *Hypophosphatemia: Discharge diagnosis: Colitis ischemic versus infectious GI bleed SIRS Secondary discharge diagnosis: Metabolic acidosis acute kidney injury hypothyroidism depression hypophosphatemia Time Spent with Patient Time attestation: Total time spent providing and/or coordinating discharge services: Time spent: Greater than 30 minutes EXAM Constitutional Vitals: Temp Pulse Resp BP Pulse Ox O2 Del Method 98.6 F 92 H 18 157/93 98 Room Air 01/23/23 08:00 01/23/23 08:00 01/23/23 08:00 01/23/23 08:00 01/23/23 08:00 01/23/23 08:00 Discharge Data Data Completed and Pending Labs on day of discharge: Labs from last 24 hours 01/23/23 01/23/23 06:05 06:05 WBC 7.8 RBC 4.28 Hgb 13.8 Hct 41.0 MCV 95.8 MCH 32.2 MCHC 33.7 RDW 14.1 Plt Count 187 MPV 10.0 Immature Gran % (Auto) 0.3 Neut % (Auto) 70.9 Lymph % (Auto) 20.0 [place] % (Auto) 6.5 Eos % (Auto) 1.8 Baso % (Auto) 0.5 Lymph # (Auto) 1.56 [place] # (Auto) 0.51 Eos # (Auto) 0.14 Baso # (Auto) 0.04 Immature Gran # 0.02 Absolute Neutrophils 5.54 Sodium 139 Potassium 3.6 Chloride 106 Carbon Dioxide 25 Anion Gap 8.0 BUN 10 Creatinine 1.1 GFR Calculation 47 Glucose 107 H Uric Acid 4.4 Calcium 8.5 L Phosphorus 2.1 L Magnesium 1.6 Total Bilirubin 0.3 Direct Bilirubin < 0.2 GGT 36 AST 15 ALT 8 Alkaline Phosphatase 111 Lactate Dehydrogenase 156 Total Protein 6.5 Albumin 3.5 Globulin 3.0 Albumin/Globulin Ratio 1.2 Triglycerides 223 H Discharge Plan Patient/Caregiver Discharge Instructions Activity: increase activity as tolerated Diet: Regular Diet Prescriptions: Continued aspirin 81 mg tablet,delayed release (DR/EC) 81 mg PO QDAY ascorbic acid (vitamin C) 500 mg capsule 500 mg PO QDAY levothyroxine 100 mcg tablet 100 mcg PO QDAY amlodipine 10 mg tablet 10 mg PO QDAY Centrum Silver Women 8 mg iron-400 mcg-300 mcg Tablet 1 tab PO QDAY melatonin 3 mg Tablet 3 mg PO HSP PRN (Reason: Insomnia) Qty: 30 0RF cyclobenzaprine 10 mg Tablet 10 mg PO BID PRN (Reason: Muscle Spasm) quetiapine [Seroquel] 50 mg Tablet 75 mg PO QHS quetiapine [Seroquel] 25 mg Tablet 75 mg PO QHS Qty: 15 0RF Follow Up Plan Follow up with: Lucretia Aguirre MD [Primary Care Provider] - Patient Disposition: Home, Self-Care Prognosis: Fair Rehab Potential: Fair I certify that the patient requires SNF services: Yes Overall status at discharge: patient is progressing back to baseline Discharge Orders: Discharge Order (Routine); Ordered 01/24/23 Ordered By: James Crowell [facility] VTE Deep Vein Thrombosis/Pulmonary Embolism Present on Admission: No
[2023-01-23] MEDS: morphine 4 MG/ML VIAL IV PRN ×2 (16:54→21:39)
[2023-01-23] MEDS ORDERED: MELATONIN 3 MG TABLET PO SCH (21:00)
[2023-01-23] MEDS: QUEtiapine 25 MG TABLET PO SCH (21:38)
[2023-01-24] MEDS: metroNIDAZOLE 500 MG/100 ML BAG IV SCH ×2 (05:37→10:59)
[2023-01-24] MEDS: 0.9 % SODIUM CHLORIDE 10 ML SYRINGE IV SCH ×2 (05:37→11:59)
--- NOTE | 2023-01-24 07:36 | Internal Med Progress Note ---
SUBJECTIVE Subjective Patient information: Note initiated : 01/24/23 at 7:35 am Service Date, if different from initiated Date: [] Patient: Arlette Glez a 82 y/o F admitted on 01/22/23 for ABD pain, rectal bleeding. Chief Complaint: [] Interval history: Ms. Glez is a 82 year old F with Hx of spinal compression Fractures. She presents with two days of bright red blood per rectum. She denies abdominal pain, N/V. There was no antecedent diarrhea. She reports weight loss over the last year. Colonoscopy two years ago was completely normal. She denies post prandial abdominal pain but does note lack of desire to eat. She also c/o back pain. Workup in the ED notes WBC 16, normal HCO3, normal Hgb. CT A/P notes inflammation of the colon from transverse to sigmoid. Also noted is diffuse extensive calcification of the aorta and bowel vasculature. CT of the spine notes extensive compression fractures of L1 and T6 along with diffuse osteoporo sis. Mar 1 WBC improved to 13 from 16. Hgb 13. Had blood bowel movement this morning. Will continue IV ABx and IVF. 3/2 Patient has Anxiety mostly related to whether or not she will eventually be able to go to her apartment as it is being inspected. Poor sleep because of anxiety. She does have a little bit of crampy abdominal pain on occasion which she relates to gas. She said she had a scant blood in her bowel movement this morning. Leukocytosis resolved. Mild hypophosphatemia. Mild hypocalcemia. 3/3 Patient feels better today less anxious. Slept well. Had little bit of nausea in the evening but better today. No bleeding overnight. Acidosis resolved. Creatinine good. Review of Systems: denies headache/fever/chills/vomiting/chest or abdominal pain/cough/dyspnea/diarrhea. Otherwise see above. PHYSICAL EXAM General: Alert, Awake, No acute Distress Eyes/N/T: EOMI, no scleral icterus, Head/Neck: neck supple, full ROM, CV: RRR, No murmurs, Pulm: Clear b/l, no wheezing/rhonchi/rales, no respiratory distress Abd: soft, nontender, + BS x4 Ext: no clubbing/cyanosis/edema, nontender Neuro: Alert, no focal deficits, moves all extremities, sensations intact b/l upper/lower Psychiatric: Skin: warm/dry, normal color Constitutional Vitals: Vital Signs Temp Pulse Resp BP Pulse Ox O2 Del Method 97.5 F 76 16 159/79 97 Room Air 01/24/23 06:49 01/24/23 06:49 01/24/23 06:49 01/24/23 06:49 01/24/23 06:49 01/24/23 06:49 Period Temp Pulse Resp BP Sys/Nascimento Pulse Ox O2 Del Method O2 Flow Rate Last 24 Hr 97.5 F-98.7 F 73-95 16-18 98-159/66-93 93-99 Room Air-Room Air Intake and Output 01/23/23 01/24/23 01/24/23 19:59 03:59 11:59 Intake Total 680 100 350 Output Total 1400 625 375 Balance -720 -525 -25 Weight 53.07 kg 53.574 kg Intake & Output: Intake & Output 01/23/23 01/24/23 01/24/23 19:59 03:59 11:59 Intake Total 680 100 350 Output Total 1400 625 375 Balance -720 -525 -25 Weight 53.07 kg 53.574 kg Intake: IV 200 100 100 Oral 480 250 Output: Urine Catheter Amount 1400 300 375 Void Amount 325 Other: Meal Lunch Percent of Meal Consumed 100% Feeding Ability Independent Urine Appearance Clear Clear Clear Uretheral ([place]) Clear Urine Color Yellow Yellow Dark Yellow Uretheral ([place]) Yellow Urine Odor Normal OBJ DATA Labs 01/23/23 06:05 01/23/23 06:05 Labs: Abnormal Lab Results 01/23/23 01/22/23 01/22/23 06:05 06:38 06:37 WBC 13.5 H Hct Neut % (Auto) 83.3 H Lymph % (Auto) 9.6 L Lymph # (Auto) 1.29 L Immature Gran # Absolute Neutrophils 11.21 H POC Chloride Carbon Dioxide 18 L POC Total CO2 POC BUN Creatinine 1.2 H POC Creatinine Glucose 107 H 124 H POC Glucose Calcium 8.5 L POC WB Ioniz Calcium Phosphorus 2.1 L Triglycerides 223 H 01/21/23 01/21/23 16:36 16:36 WBC 16.7 H Hct 46.0 H Neut % (Auto) 81.6 H Lymph % (Auto) 12.6 L Lymph # (Auto) Immature Gran # 0.09 H Absolute Neutrophils 13.64 H POC Chloride 109 H Carbon Dioxide POC Total CO2 20.0 L POC BUN 27 H Creatinine POC Creatinine 1.3 H Glucose POC Glucose 106 H Calcium POC WB Ioniz Calcium 0.94 L Phosphorus Triglycerides Meds: Medications Acetaminophen (Acetaminophen 325 Mg Tablet) 650 mg PO Q6HP PRN; Protocol PRN Reason: Per Pain Protocol/Fever > 101 Amlodipine Besylate (Amlodipine 10 Mg Tablet) 10 mg PO QDAY [facility] Last Admin: 01/23/23 08:12 Dose: 10 mg Diphenhydramine HCl (Diphenhydramine 25 Mg Capsule) 25 mg PO HSP PRN PRN Reason: Insomnia Levofloxacin (Levaquin) 750 mg in 150 mls @ 100 mls/hr IV DAILY [facility]; Protocol Last Infusion: 01/23/23 10:01 Dose: Infused Metronidazole (Flagyl) 500 mg in 100 mls @ 100 mls/hr IV Q6H [facility]; Protocol Last Infusion: 01/24/23 06:43 Dose: Infused Levothyroxine Sodium (Levothyroxine 100 Mcg Tablet) 100 mcg PO QDAY [facility] Last Admin: 01/23/23 07:17 Dose: 100 mcg Melatonin (Melatonin 3 Mg Tablet) 3 mg PO HS [facility] Last Admin: 01/23/23 21:39 Dose: 3 mg Morphine Sulfate (Morphine 4 Mg/Ml Vial) 4 mg IV Q4HP PRN; Protocol PRN Reason: Per Pain Protocol Last Admin: 01/23/23 21:39 Dose: 4 mg Ondansetron HCl (Ondansetron 4 Mg/2 Ml Vial) 4 mg IV Q6HP PRN PRN Reason: Nausea And Vomiting Last Admin: 01/23/23 22:22 Dose: 4 mg Quetiapine Fumarate (Quetiapine 25 Mg Tablet) 75 mg PO QHS [facility] Last Admin: 01/23/23 21:38 Dose: 75 mg Sodium Chloride (0.9 % Sodium Chloride 10 Ml Syringe) 10 ml IV Q8 [facility] Last Admin: 01/24/23 05:37 Dose: 10 ml A/P Narrative A/P Narrative: A: *Colitis: ischemic vs infectious. improved *GIB(BRPBR): 2/2 above -hgb stable *SIRS: leukocytosis/tachycardia, improved *Metabolic acidosis: 2/2 above *KALYANI on CKD III: improving *Hypothyroidism: *Depression: *Hypophosphatemia: P: -clears started advance to full -Abx (levofloxacin and metronidazole, PCN allergic) -stool cx and c. diff still pending -monitor h&h -Continue appropriate home medications, hold home aspirin. cont norvasc/levothyroxin/seroquel -PT/OT -CM for placement needs -ppx: SCD Time Spent With Patient Time: Total time spent is greater than 50% in coordination of care (as documented) at patient's floor/unit and/or counseling patient: Subsequent: Total time with patient: 35 - 49 minutes QUALITY Stroke Symptom Onset Unknown: No VTE Deep Vein Thrombosis/Pulmonary Embolism Present on Admission: No
[2023-01-24 07:41] LABS: Basophils # (Auto) 0.04 K/mcL (0.00-0.30); Basophils % (Auto) 0.5 % (0.0-2.0); Eosinophils # (Auto) 0.23 K/mcL (0.00-0.70); Hematocrit 38.5 % (34.1-44.9); Hemoglobin 12.5 g/dL (11.2-15.7); Lymphocytes # (Auto) 1.76 K/mcL (1.50-4.80); Lymphocytes % (Auto) 22.8 % (15.5-49.0); Mean Corpuscular HGB Conc 32.5 g/dL (31.0-36.0); Mean Platelet Volume 10.1 fL (8.8-12.5); Monocytes # (Auto) 0.53 K/mcL (0.10-0.90); Monocytes % (Auto) 6.9 % (1.0-12.0); Neutrophils % (Auto) 66.4 % (38.0-78.0); Platelet Count 191 K/mcL (140-440); RBC 3.97 M/mcL (3.59-5.38); Red Cell Distribution Width 13.9 % (11.5-14.5); WBC 7.7 K/mcL (4.5-11.0)
[2023-01-24] MEDS: LEVOFLOXACIN 750 MG/150 ML BAG IV SCH (08:42)
[2023-01-24] MEDS: amLODIPine 10 MG TABLET PO SCH (08:42)
[2023-01-24] MEDS: LEVOTHYROXINE 100 MCG TABLET PO SCH (08:43)
== END 2023-01-24 15:29 | disposition home or self-care (01) | DRG 392 ==
LOC: ED 14:28 → MEDSUR 01-22 01:26
PROVIDERS: ADMIT Internal Medicine; ATTEND Internal Medicine

== ENCOUNTER 2023-03-25 19:19 | Inpatient (IN) ==
[2023-03-25] MEDS ORDERED: 0.9 % SODIUM CHLORIDE 1,000 ML IV ONE (19:34)
--- NOTE | 2023-03-25 19:38 | Emergency Department Note ---
Fall HPI General Chief Complaint: Fall Stated Complaint: Hip Pain Time Seen by Provider: 03/25/23 19:25 Source: EMS Mode of arrival: ambulatory Limitations: no limitations History of Present Illness HPI Narrative: Narrative: Patient presents to the ED via EMS due to right hip pain that occurred shortly prior to arrival. Patient that she was coming inside the house from smoking when she got dizzy and fell landed on her right side. She reports that initially her pain was 8/10 now it is a 2/10. She denies head trauma, loss of consciousness, blood thinner use, vision changes, back pain, bowel bladder incontinence, neck pain, loss of sensation of lower extremity, loss of motor function of her lower extremities. Patient dates that she is a everyday pack-a-day smoker. Patient denies any other alleviating or aggravating factors. Related Data Home Medications Medication Instructions Recorded Confirmed ascorbic acid (vitamin C) 500 mg 500 mg PO QDAY 09/12/20 01/22/23 capsule aspirin 81 mg tablet,delayed 81 mg PO QDAY 09/12/20 01/22/23 release multivit with 1 tab PO QDAY 01/15/21 01/22/23 lldovnrh-zxue-TZ-lutein 8 mg iron-400 mcg-300 mcg tablet (Centrum Silver Women) cyclobenzaprine 10 mg tablet 10 mg PO BID PRN Muscle Spasm 01/26/21 01/22/23 quetiapine 50 mg tablet (Seroquel) 75 mg PO QHS 01/28/21 01/22/23 amlodipine 10 mg tablet 10 mg PO QDAY 01/21/23 01/22/23 levothyroxine 100 mcg tablet 100 mcg PO QDAY 01/21/23 01/22/23 Previous Rx's Medication Instructions Recorded melatonin 3 mg tablet 3 mg PO HSP PRN Insomnia #30 tabs 01/17/21 quetiapine 25 mg tablet (Seroquel) 75 mg PO QHS #15 tabs 01/29/21 Allergies Allergy/AdvReac Type Severity Reaction Status Date / Time Penicillins Allergy Mild itching/ Verified 03/25/23 19:21 rash Review of Systems ROS ROS Narrative: Narrative: All systems ED: reviewed and negative except as stated. PFSH Narrative Patient History Narrative: Narrative: Medical/Surgical/Family History All Active Problems (Updated 03/25/23 @ 20:13 by Porter Clark DO) Closed intertrochanteric fracture of right femur (Acute) Fall (Acute) Acute dehydration (Acute) Colitis (Acute) Constipation (Acute) Depression (Acute) Aortic aneurysm (Acute) Compression fracture of vertebra (Acute) Osteoarthritis of lumbar spine (Acute) Osteoporosis (Acute) Hypothyroidism (Acute) Acute lumbar myofascial strain (Acute) Lumbar spine strain (Acute) Large bowel obstruction (Acute) Abnormality of rectum (Acute) Acute urinary retention (Acute) Aortic stenosis, severe (Acute) Weakness generalized (Acute) Hematuria (Acute) Left flank pain (Acute) Right hip pain (Acute) Medical History Aortic aneurysm Compression fracture of vertebra Constipation This is a pleasant 80-year-old female with change in bowel habits over the last several years who has not had a screening colonoscopy done. Depression History of Graves' disease Hypothyroidism Osteoarthritis of lumbar spine Osteoporosis Pyloric stenosis, congenital Trigger thumb of both hands Surgical History History of colonoscopy 12/2020 History of hysterectomy History of repair of pyloric stenosis History of thumb surgery History of tubal ligation Family History Father Alcoholism Social History Smoking Status: Current every day smoker Alcohol Intake Frequency: does not drink Substance Use: does not use Exam Narrative Narrative: Narrative: General Limitations: no limitations General appearance: Absent in distress Head Head: Present atraumatic and normocephalic Eye Eye: Present PERRL and EOMI ENT ENT: Present normal oropharynx and mucous membranes moist Neck Neck: Present normal inspection and full ROM; Absent tenderness Chest Chest: Present normal inspection; Absent tenderness Respiratory Respiratory: Present normal lung sounds bilaterally; Absent respiratory distress Cardiovascular Cardiovascular: Present regular rate and normal rhythm Adbominal Abdominal: Present soft; Absent tenderness Extremities Extremities: Present normal capillary refill Expanded Upper Extremity Shoulder: Present normal inspection Arm: Present normal inspection Expanded Lower Extremity Hip/Pelvis: Present tenderness and swelling; Absent deformity Upper leg: Present tenderness and swelling Knee: Present normal inspection; Absent tenderness Back Back: Absent L-S tenderness Neurological Neurological: Present alert and oriented X3 Psychiatric Psychiatric: Present normal affect and normal mood Skin Skin: Present warm (WNL) and intact Course Course Course Narrative: Patient was admitted status post fall with right hip pain. CT of the pelvis obtained with image reviewed myself which shows a right intertrochanteric fracture. Case discussed with orthopedic surgeon who recommends the patient be admitted to the hospitalist due to her current condition to include Graves' disease and hypothyroidism. Patient was given some IV fluids here in the ED due to her dizziness. She was also dehydrated per her labs with elevated BUN and creatinine. EKG was obtained shows sinus rhythm. Patient's pain remained less than a 5 so there is no IV opiate medication administered here in the ED though it was considered and on standby. Patient was given IV Toradol for discomfort. Case discussed with hospitalist who has agreed to admit the patient. Consultations Consultation #1: Case discussed with on-call orthopedic surgeon, Dr. Peraza, who recommends the patient be admitted to the hospital service due to her comorbid conditions he will consult for surgical correction of her right hip fracture. Time: 20:08 Consultation #2: Case discussed with hospitalist who has agreed to admit the patient. Time: 20:20 Vital Signs Vital signs: Vital Signs Temperature 98.1 F 03/25/23 19:20 Pulse Rate 86 03/25/23 19:20 Respiratory Rate 20 03/25/23 19:20 Blood Pressure 168/91 03/25/23 19:20 Pulse Oximetry (%) 96 03/25/23 19:20 Oxygen Delivery Method Room Air 03/25/23 19:20 Temperature 98.1 F 03/25/23 19:20 Pulse Rate 87 03/25/23 19:34 Respiratory Rate 26 H 03/25/23 19:34 Blood Pressure 168/91 03/25/23 19:20 Pulse Oximetry (%) 95 03/25/23 19:34 Oxygen Delivery Method Room Air 03/25/23 19:20 [facility] MDM Narrative Medical decision making narrative: Narrative: Differential Diagnosis Differential Diagnosis: Hip fracture, femur fracture, dizziness Medical Records Medical records reviewed: Yes I reviewed the patient's medical records. Lab Data Lab results reviewed: Yes I reviewed the patient's lab results. 03/25/23 19:56 Labs: Lab Results 03/25/23 Range/Units 19:44 POC Hct 38.0 (36-48) POC Sodium 141 (133-145) POC Potassium 3.7 (3.3-5.1) POC Chloride 105 (96-108) POC Total CO2 23.0 (22-30) POC BUN 34 H (6-20) POC Creatinine 1.3 H (0.6-1.2) POC Glucose 131 H (70-105) POC WB Ioniz Calcium 1.16 (1.16-1.32) Radiology Data Radiology results reviewed: Yes I reviewed the patient's radiology results. Radiology results narrative: CT of the pelvis obtained with image reviewed myself which revealed a right intertrochanteric fracture EKG Data EKG #1: EKG attestation: Yes I reviewed and interpreted this EKG. EKG shows normal: sinus rhythm Rate: normal Rhythm: NSR [place]/QRS: normal Heart block present: None ST segment elevation in: None ST segment depression in: None QTc: normal QRS morphology: Present normal Interpretation: no acute changes Core Measures AMI Core Measures Followed: Yes Discharge Plan Patient/Caregiver Discharge Instructions Pt seen by [employer]/PA only: No Clinical Impression: Acute dehydration Closed intertrochanteric fracture of right femur Qualifiers: Encounter type: initial encounter Fracture alignment: nondisplaced Qualified Code(s): S72.144A - Nondisplaced intertrochanteric fracture of right femur, initial encounter for closed fracture Fall Qualifiers: Encounter type: initial encounter Qualified Code(s): W19.XXXA - Unspecified fall, initial encounter Patient Disposition: Xfer As Outpt/Obs ([facility]) Condition: Fair Follow up with: Lucretia Aguirre MD [Primary Care Provider] - Prescriptions: No Action aspirin 81 mg tablet,delayed release (DR/EC) 81 mg PO QDAY ascorbic acid (vitamin C) 500 mg capsule 500 mg PO QDAY levothyroxine 100 mcg tablet 100 mcg PO QDAY amlodipine 10 mg tablet 10 mg PO QDAY Centrum Silver Women 8 mg iron-400 mcg-300 mcg Tablet 1 tab PO QDAY melatonin 3 mg Tablet 3 mg PO HSP PRN (Reason: Insomnia) Qty: 30 0RF cyclobenzaprine 10 mg Tablet 10 mg PO BID PRN (Reason: Muscle Spasm) quetiapine [Seroquel] 50 mg Tablet 75 mg PO QHS quetiapine [Seroquel] 25 mg Tablet 75 mg PO QHS Qty: 15 0RF
[2023-03-25 19:49] LABS: POC Calcium, Ionized 1.16 (1.16-1.32); POC Creatinine 1.3 (0.6-1.2); POC Potassium 3.7 (3.3-5.1)
--- NOTE | 2023-03-25 20:10 | Cat Scan Report ---
History: Fell with right hip pain TECHNIQUE: The pelvis was imaged without contrast in axial plane from above the iliac crest to the distal shaft of the femur. Sagittal and coronal reformats were created. The radiation exposure was limited using dose reduction technology. FINDINGS: There is an acute intertrochanteric fracture of the proximal right femur. There is varus angulation. The femoral head is normally aligned with the acetabulum. There is mild arthritis in the hip with formation of subchondral cysts in the roof of the acetabulum. There is soft tissue swelling around the fracture line. The shaft of the femur is normal. No pelvic fracture is present. The left hip is normally aligned and there is no spur formation. There are small subchondral cysts in the roof of the acetabulum. Mild compression fracture is seen involving the superior endplate of L5. This is new since the prior CT done on 01/01/23. 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 Most of the aorta is outside of the field of view. The visualized segment of the aneurysm measures 4.1 x 4.3 cm in diameter. 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 The iliacs are small. The bowel pattern is normal. The colitis seen in the distal descending colon on the prior CT has resolved. No ascites or intrapelvic hematoma are present. IMPRESSION: Intertrochanteric fracture of the right proximal femur. Mild compression fracture involving the superior endplate of L5 of undetermined age but new since 01/21/23 Dr. Clark was called with the report Interpreted and Authenticated by: Ming Landrum 03/25/23
[2023-03-25 20:20] LABS: Basophils # (Auto) 0.05 K/mcL (0.00-0.30); Basophils % (Auto) 0.5 % (0.0-2.0); Eosinophils # (Auto) 0.23 K/mcL (0.00-0.70); Eosinophils % (Auto) 2.1 % (0.0-7.0); Hematocrit 37.5 % (34.1-44.9); Hemoglobin 12.5 g/dL (11.2-15.7); Lymphocytes % (Auto) 16.6 % (15.5-49.0); Mean Cell Volume 96.9 fL (80.0-100.0); Mean Corpuscular HGB Conc 33.3 g/dL (31.0-36.0); Mean Platelet Volume 10.5 fL (8.8-12.5); Monocytes # (Auto) 0.57 K/mcL (0.10-0.90); Monocytes % (Auto) 5.2 % (1.0-12.0); Neutrophils % (Auto) 75.3 % (38.0-78.0); Platelet Count 197 K/mcL (140-440); RBC 3.87 M/mcL (3.59-5.38); Red Cell Distribution Width 14.1 % (11.5-14.5); WBC 10.9 K/mcL (4.5-11.0)
--- NOTE | 2023-03-25 20:30 | Internal Med History&Physical ---
HPI History of Present Illness Patient information: Note initiated : 03/25/23 at 8:19 pm Service Date, if different from initiated Date: [] Patient: Arlette Glez a 82 y/o F admitted on for Hip Pain. Chief Complaint: [] History of present illness: Ms. Glez is a 82 year old F Presents to the hospital after fall and right hip pain. Patient states she was outside smoking and sitting down. She got up to go into the house and started feeling dizzy and lightheaded and tried to reach the couch but fell before onto her right side with immediate pain. She did not pass out or hit her head. She denies any recent illnesses. No chest pain shortness of breath nausea vomiting headache. Work-up in the ED revealed a right hip fracture. Dr. Peraza was contacted Review of Systems: Pertinent positive as above. Denies headache/fever/chills/nausea/vomiting/chest or abdominal pain/cough/dyspnea/diarrhea. Remaining 10 point review of system reviewed negative. PHYSICAL EXAM General: Alert, Awake, No acute Distress Eyes/N/T: EOMI, no scleral icterus, PERRL, dry MM Head/Neck: neck supple, full ROM, normocephalic atraumatic CV: RRR, No murmurs, normal s1/s2 Pulm: Clear b/l, no wheezing/rhonchi/rales, no respiratory distress Abd: soft, nontender, +BS x4 Ext: no clubbing/cyanosis/edema, nontender Neuro: Alert, CN 2-12 grossly intact, no focal deficits, , sensations intact b/l upper/lower Psychiatric: Skin: warm/dry, normal color PFSH PFSH All Active Problems (Updated 03/25/23 @ 20:13 by Porter Clark DO) Closed intertrochanteric fracture of right femur (Acute) Fall (Acute) Acute dehydration (Acute) Colitis (Acute) Constipation (Acute) Depression (Acute) Aortic aneurysm (Acute) Compression fracture of vertebra (Acute) Osteoarthritis of lumbar spine (Acute) Osteoporosis (Acute) Hypothyroidism (Acute) Acute lumbar myofascial strain (Acute) Lumbar spine strain (Acute) Large bowel obstruction (Acute) Abnormality of rectum (Acute) Acute urinary retention (Acute) Aortic stenosis, severe (Acute) Weakness generalized (Acute) Hematuria (Acute) Left flank pain (Acute) Right hip pain (Acute) Medical History Aortic aneurysm Compression fracture of vertebra Constipation This is a pleasant 80-year-old female with change in bowel habits over the last several years who has not had a screening colonoscopy done. Depression History of Graves' disease Hypothyroidism Osteoarthritis of lumbar spine Osteoporosis Pyloric stenosis, congenital Trigger thumb of both hands Surgical History History of colonoscopy 12/2020 History of hysterectomy History of repair of pyloric stenosis History of thumb surgery History of tubal ligation Family History Father Alcoholism Social History (Updated 01/26/21 @ 21:11 by Elizabeth Rosenthal MD) smoking status: Current every day smoker smoking status start date: 11/24/53 smoking status stop date: 01/13/21 alcohol intake frequency: does not drink substance use type: does not use MEDS/ALLERGIES Home Medications and Allergies Home Medications Medication Instructions Recorded Confirmed Type ascorbic acid (vitamin C) 500 mg 500 mg PO QDAY 09/12/20 01/22/23 History capsule aspirin 81 mg tablet,delayed 81 mg PO QDAY 09/12/20 01/22/23 History release multivit with 1 tab PO QDAY 01/15/21 01/22/23 History vawabnqy-xwna-OA-lutein 8 mg iron-400 mcg-300 mcg tablet (Centrum Silver Women) melatonin 3 mg tablet 3 mg PO HSP PRN Insomnia #30 tabs 01/17/21 01/22/23 Rx cyclobenzaprine 10 mg tablet 10 mg PO BID PRN Muscle Spasm 01/26/21 01/22/23 History quetiapine 50 mg tablet (Seroquel) 75 mg PO QHS 01/28/21 01/22/23 History quetiapine 25 mg tablet (Seroquel) 75 mg PO QHS #15 tabs 01/29/21 01/22/23 Rx amlodipine 10 mg tablet 10 mg PO QDAY 01/21/23 01/22/23 History levothyroxine 100 mcg tablet 100 mcg PO QDAY 01/21/23 01/22/23 History Allergies Allergy/AdvReac Type Severity Reaction Status Date / Time Penicillins Allergy Mild itching/ Verified 03/25/23 19:21 rash EXAM Constitutional Vitals: Temp Pulse Resp BP Pulse Ox O2 Del Method 98.1 F 86 15 146/103 96 Room Air 03/25/23 19:20 03/25/23 20:09 03/25/23 20:09 03/25/23 19:57 03/25/23 20:09 03/25/23 19:20 DATA Data Completed and Pending Labs: Labs from last 24 hours 03/25/23 03/25/23 19:56 19:44 WBC Pending RBC Pending Hgb Pending Hct Pending POC Hct 38.0 MCV Pending MCH Pending MCHC Pending RDW Pending Plt Count Pending MPV Pending Immature Gran % (Auto) Pending Neut % (Auto) Pending Immature Gran # Pending POC Sodium 141 POC Potassium 3.7 POC Chloride 105 POC Total CO2 23.0 POC BUN 34 H POC Creatinine 1.3 H POC Glucose 131 H POC WB Ioniz Calcium 1.16 A/P Narrative A/P Narrative: A: *Right hip fracture: *Volume depletion: *CKD III: *Hypothyroidism: Continue Synthroid *Depression: *Tobacco abuse: P: -Dr. Peraza for orthopedic repair -IVF -cont norvasc -cont psych meds -hold home ASA for surgery -Home medication reconciliation -PT/OT -CM for placement needs -Smoking cessation counseling >3 minutes -ppx: SCD and postop per Ortho Time Spent With Patient Time: Total time spent is greater than 50% in coordination of care (as documented) at patient's floor/unit and/or counseling patient:
[2023-03-25 20:49] LABS: Albumin 3.7 gm/dL (3.2-5.2); Blood Urea Nitrogen 35 mg/dL (8-23); Carbon Dioxide 23 mmol/L (22-30); Chloride 105 mmol/L (96-108); Glomerular Filtration Rate 47; Glucose 127 mg/dL (70-105); Phosphorous 3.7 mg/dL (2.5-4.5)
[2023-03-25] MEDS ORDERED: morphine 2 MG/ML VIAL IV ONE (20:57)
[2023-03-25] MEDS ORDERED: SENNOSIDES 1 TABLET PO PRN (22:28)
[2023-03-25] MEDS ORDERED: IPRATROPIUM/ALBUTEROL 3 ML AMPUL.NEB NEB PRN (22:28)
[2023-03-25] MEDS ORDERED: ONDANSETRON 4 MG/2 ML VIAL IV PRN (22:28)
[2023-03-25] MEDS ORDERED: POLYETHYLENE GLYCOL 3350 17 GM PACKET PO PRN (22:28)
[2023-03-25] MEDS ORDERED: POTASSIUM CHLORIDE 40 MEQ in DEXTROSE 5% IN WATER 500 ML IV PRN (22:28)
[2023-03-25] MEDS ORDERED: ACETAMINOPHEN 325 MG TABLET PO PRN (22:28)
[2023-03-25] MEDS ORDERED: LABETALOL 5 MG/ML ML IV PRN (22:28)
[2023-03-25] MEDS ORDERED: POTASSIUM CHLORIDE 20 MEQ TABLET PO PRN ×2 (22:28)
[2023-03-25] MEDS ORDERED: hydrALAZINE 20 MG/ML VIAL IV PRN (22:28)
[2023-03-25] MEDS ORDERED: 0.9 % SODIUM CHLORIDE 1,000 ML IV SCH (22:28)
[2023-03-25] MEDS ORDERED: MAGNESIUM SULFATE 2 GM/50 ML BAG IV PRN (22:28)
[2023-03-25] MEDS: morphine 4 MG/ML VIAL IV PRN (23:13)
[2023-03-25] MEDS: DOCUSATE SODIUM 100 MG CAPSULE PO SCH (23:14)
[2023-03-25] MEDS: 0.9 % SODIUM CHLORIDE 10 ML SYRINGE IV SCH (23:14)
[2023-03-26] MEDS ORDERED: OPIUM/BELLADONNA ALKALOIDS 30 MG SUPP.RECT PR ONE ×2 (00:16→00:23)
[2023-03-26] MEDS: morphine 4 MG/ML VIAL IV PRN ×4 (02:11→12:17)
[2023-03-26 02:27] LABS: Appearance,Urine CLOUDY (Clear); Bacteria,Urine MOD /hpf (0); Bilirubin,Urine Negative (Negative); Color,Urine YELLOW; Culture Indicated,Urine No; Glucose,Urine (UA) 50 mg/dL (Negative); Ketones,Urine Negative (Negative); Leukocyte Esterase,Urine Negative /uL (Negative); Nitrate,Urine Negative (Negative); Protein,Urine 30 mg/dL (Negative); Specific Gravity,Urine 1.009 (1.000-1.035); Urine Amorphous Crystals FEW /hpf; Urine Blood Negative (Negative); Urine RBC 1 /hpf (0-3); Urine Squamous Epithelial Cell 99 /hpf (0-4); Urine WBC 1 /hpf (0-4); Urobilinogen,Urine Negative
[2023-03-26] MEDS: 0.9 % SODIUM CHLORIDE 10 ML SYRINGE IV SCH ×3 (05:02→21:23)
[2023-03-26] MEDS ORDERED: METHOCARBAMOL 1,000 MG/10 ML VIAL IV PRN ×2 (07:00→14:45)
[2023-03-26 07:18] LABS: Basophils # (Auto) 0.04 K/mcL (0.00-0.30); Basophils % (Auto) 0.5 % (0.0-2.0); Eosinophils # (Auto) 0.12 K/mcL (0.00-0.70); Eosinophils % (Auto) 1.4 % (0.0-7.0); Hematocrit 36.4 % (34.1-44.9); Lymphocytes # (Auto) 1.92 K/mcL (1.50-4.80); Lymphocytes % (Auto) 21.9 % (15.5-49.0); Mean Cell Volume 98.1 fL (80.0-100.0); Mean Platelet Volume 10.5 fL (8.8-12.5); Monocytes # (Auto) 0.69 K/mcL (0.10-0.90); Monocytes % (Auto) 7.9 % (1.0-12.0); Platelet Count 204 K/mcL (140-440); RBC 3.71 M/mcL (3.59-5.38); WBC 8.8 K/mcL (4.5-11.0)
[2023-03-26 07:20] LABS: Prothrombin Time 13.7 sec (11.9-14.5)
--- NOTE | 2023-03-26 07:34 | Internal Med Progress Note ---
SUBJECTIVE Subjective Patient information: Note initiated : 03/26/23 at 7:32 am Service Date, if different from initiated Date: [] Patient: Arlette Glez a 82 y/o F admitted on 03/25/23 for Hip Pain, femur fracture. Chief Complaint: [] Interval history: History of present illness: Ms. Glez is a 82 year old F Presents to the hospital after fall and right hip pain. Patient states she was outside smoking and sitting down. She got up to go into the house and started feeling dizzy and lightheaded and tried to reach the couch but fell before onto her right side with immediate pain. She did not pass out or hit her head. She denies any recent illnesses. No chest pain shortness of breath nausea vomiting headache. Work-up in the ED revealed a right hip fracture. Dr. Peraza was contacted 03/26 Patient says she slept well. Does get severe spasms in her hip. She is scheduled to undergo surgery later today. Review of Systems: Pertinent positive as above. Denies headache/fever/chills/nausea/vomiting/chest or abdominal pain/cough/dyspnea/diarrhea. PHYSICAL EXAM General: Alert, Awake, No acute Distress Eyes/N/T: EOMI, no scleral icterus, Head/Neck: neck supple, full ROM, CV: RRR, No murmurs, Pulm: Clear b/l, no wheezing/rhonchi/rales, no respiratory distress Abd: soft, nontender, +BS x4 Ext: no clubbing/cyanosis/edema, nontender Neuro: Alert, no focal deficits, , sensations intact b/l upper/lower Psychiatric: Skin: warm/dry, normal color Constitutional Vitals: Vital Signs Temp Pulse Resp BP Pulse Ox O2 Del Method 97.3 F 75 18 146/95 99 Room Air 03/26/23 06:46 03/26/23 06:46 03/26/23 06:46 03/26/23 06:46 03/26/23 06:46 03/26/23 06:46 Period Temp Pulse Resp BP Sys/Nascimento Pulse Ox O2 Del Method O2 Flow Rate Last 24 Hr 97.3 F-98.4 F 74-91 11-29 96-171/66-111 93-99 Room Air-Room Air Intake and Output 03/25/23 03/26/23 03/26/23 19:59 03:59 11:59 Intake Total 1000 Output Total 500 Balance 1000 -500 Weight 48.988 kg 48.58 kg Intake & Output: Intake & Output 03/25/23 03/26/23 03/26/23 19:59 03:59 11:59 Intake Total 1000 Output Total 500 Balance 1000 -500 Weight 48.988 kg 48.58 kg Intake: IV 1000 Sodium Chloride 0.9% 1,000 ml @ 1000 Wide Open IV BOLUS ONE Rx#: [id number] Output: Urine Catheter Amount 500 Other: Urine Appearance Clear Urine Color Yellow OBJ DATA Labs 03/26/23 05:47 03/26/23 05:47 Labs: Abnormal Lab Results 03/26/23 03/25/23 03/25/23 01:43 19:56 19:56 Absolute Neutrophils 8.18 H POC BUN BUN 35 H POC Creatinine Glucose 127 H POC Glucose Urine Appearance Cloudy A Urine Protein 30 A Urine Glucose (UA) 50 A Ur Squamous Epith Cells 99 H Amorphous Crystals Few A Urine Bacteria Mod A 03/25/23 19:44 Absolute Neutrophils POC BUN 34 H BUN POC Creatinine 1.3 H Glucose POC Glucose 131 H Urine Appearance Urine Protein Urine Glucose (UA) Ur Squamous Epith Cells Amorphous Crystals Urine Bacteria Meds: Medications Acetaminophen (Acetaminophen 325 Mg Tablet) 650 mg PO Q6HP PRN; Protocol PRN Reason: Per Pain Protocol/Fever > 101 Hydrocodone Bitart/Acetaminophen (Hydrocodone/Apap 5/325mg Tablet) 1 tab PO Q4HP PRN PRN Reason: PAIN LEVEL 3-6 Albuterol/Ipratropium (Ipratropium/Albuterol 3 Ml Ampul.Neb) 3 ml NEB Q4HP PRN PRN Reason: Shortness Of Breath Docusate Sodium (Docusate Sodium 100 Mg Capsule) 100 mg PO BID MARIE Last Admin: 03/25/23 23:14 Dose: Not Given Hydralazine HCl (Hydralazine 20 Mg/Ml Vial) 0 mg IV Q2HP PRN PRN Reason: Hypertension Potassium Chloride 40 meq/ (Dextrose) 520 mls @ 130 mls/hr IV UD PRN PRN Reason: Potassium < 3 Magnesium Sulfate (Magnesium Sulfate) 2 gm in 50 mls @ 50 mls/hr IV UD PRN PRN Reason: Magnesium </= 1.6 Sodium Chloride (Sodium Chloride 0.9%) 1,000 mls @ 60 mls/hr IV .[id number] [facility] Stop: 03/26/23 15:07 Last Admin: 03/25/23 23:14 Dose: 60 mls/hr Labetalol HCl (Labetalol 5 Mg/Ml Ml) 0 mg IV Q2HP PRN PRN Reason: Hypertension Last Admin: 03/25/23 23:13 Dose: 20 mg Methocarbamol (Methocarbamol 1,000 Mg/10 Ml Vial) 750 mg IV Q6HP PRN PRN Reason: Muscle Spasm Last Admin: 03/26/23 07:17 Dose: 750 mg Morphine Sulfate (Morphine 4 Mg/Ml Vial) 0 mg IV Q3HP PRN PRN Reason: Pain Last Admin: 03/26/23 05:01 Dose: 2 mg Ondansetron HCl (Ondansetron 4 Mg/2 Ml Vial) 4 mg IV Q4HP PRN PRN Reason: Nausea And Vomiting Polyethylene Glycol (Polyethylene Glycol 3350 17 Gm Packet) 17 gm PO DAILYP PRN PRN Reason: Constipation Potassium Chloride (Potassium Chloride 20 Meq Tablet) 40 meq PO UD PRN PRN Reason: Potssium is 3-3.5 Potassium Chloride (Potassium Chloride 20 Meq Tablet) 40 meq PO UD PRN PRN Reason: Potassium < 3 Senna (Sennosides 1 Tablet) 2 tab PO DAILYP PRN PRN Reason: Constipation Sodium Chloride (0.9 % Sodium Chloride 10 Ml Syringe) 10 ml IV Q8 [facility] Last Admin: 03/26/23 05:02 Dose: 10 ml A/P Narrative A/P Narrative: A: *Right hip fracture: *Volume depletion: *CKD III: *Hypothyroidism: Continue Synthroid *Depression: *Tobacco abuse: P: -Dr. Peraza for orthopedic repair -IVF while npo -cont norvasc -cont psych meds -hold home ASA for surgery -Home medication reconciliation -PT/OT -CM for placement needs -Smoking cessation counseling -ppx: SCD and postop per Ortho Time Spent With Patient Time: Total time spent is greater than 50% in coordination of care (as documented) at patient's floor/unit and/or counseling patient: Subsequent: Total time with patient: 35 - 49 minutes QUALITY Stroke Symptom Onset Unknown: No VTE Deep Vein Thrombosis/Pulmonary Embolism Present on Admission: No
[2023-03-26 07:55] LABS: ALT/SGPT 10 U/L (<40); AST/SGOT 14 U/L (<32); Albumin 3.5 gm/dL (3.2-5.2); Albumin/Globulin Ratio 1.3 (1.0-2.3); Alkaline Phosphatase 109 U/L (39-117); Bilirubin,Direct < 0.2 mg/dL (0-0.3); Bilirubin,Total 0.3 mg/dL (0.1-1.0); Blood Urea Nitrogen 26 mg/dL (8-23); Calcium 8.5 mg/dL (8.6-10.4); Carbon Dioxide 19 mmol/L (22-30); Chloride 109 mmol/L (96-108); Globulin 2.7 gm/dL (2.2-3.7); Glomerular Filtration Rate 60; Glucose 108 mg/dL (70-105); Lactate Dehydrogenase 218 U/L (135-225); Phosphorous 3.1 mg/dL (2.5-4.5); Triglycerides 130 mg/dL (<150); Uric Acid 4.4 mg/dL (2.5-8.0)
[2023-03-26] MEDS: DOCUSATE SODIUM 100 MG CAPSULE PO SCH ×3 (08:21→21:24)
--- NOTE | 2023-03-26 09:37 | History and Physical Report ---
DATE OF ADMISSION: 03/25/2023 IDENTIFICATION: An 82-year-old female. CHIEF COMPLAINT: Right intertrochanteric hip fracture. HISTORY OF PRESENT ILLNESS: The patient sustained a ground level non-syncopal fall, had immediate pain and was unable to bear weight. She presented to the Emergency Room at [facility] where radiographs had demonstrated a fracture of the intertrochanteric region on the right. She has been admitted to the hospitalist service, but I am called for further evaluation and management. PAST MEDICAL HISTORY: Significant for an aortic aneurysm, history of depression, osteoporosis, and Grave's disease. PAST SURGICAL HISTORY: She had a previous hysterectomy, thumb surgery, and tubal ligation. MEDICATIONS: Aspirin. Melatonin. Seroquel. Amlodipine. Thyroid supplement. ALLERGIES: PENICILLIN. REVIEW OF SYSTEMS: She has been healthy, recently. No acute changes in 10-point review of systems. PHYSICAL EXAM: GENERAL: She is awake and alert. She does seem to have some abnormal facial movements. HEAD: Normocephalic/atraumatic. NECK: Supple, with pain on range of motion. HEART: Regular. LUNGS: Clear. RIGHT LOWER EXTREMITY: Carefully positioned, but seems to be neurovascularly intact. RADIOLOGIC STUDIES: Her radiographs include a CT scan, which demonstrates an intertrochanteric hip fracture with displacement in rotation. IMPRESSION: Intertrochanteric hip fracture. PLAN: This is an unstable fracture in need of operative stabilization. This has been discussed with the patient and she wishes to do this as soon as possible, and we will proceed to the operating room for reduction and internal fixation. Risks, complications, and limitations have been discussed and seem to be well-understood. IARIDA:ata Job ID: [id number] Doc ID: [id number] Adolph Peraza MD
[2023-03-26] MEDS: 0.45 % SODIUM CHLORIDE 1,000 ML IV SCH (10:39)
[2023-03-26] MEDS: HYDROcodone/APAP 5/325MG TABLET PO PRN ×3 (10:40→21:22)
[2023-03-26] MEDS ORDERED: GLYCOPYRROLATE 0.2 MG/ML VIAL IV ONE (13:42)
[2023-03-26] MEDS ORDERED: PROPOFOL 200 MG/20 ML VIAL IV ONE (13:42)
[2023-03-26] MEDS ORDERED: LIDOCAINE HCL/PF 100 MG/5 ML SYRINGE IV ONE (13:42)
[2023-03-26] MEDS ORDERED: DEXAMETHASONE 10 MG/ML VIAL ONE (13:42)
[2023-03-26] MEDS ORDERED: KETAMINE 50 MG/ML Syringe (ANEST) IV ONE (13:42)
[2023-03-26] MEDS ORDERED: fentaNYL 100 MCG/2 ML VIAL IV ONE (13:42)
[2023-03-26] MEDS ORDERED: TRANEXAMIC ACID 1,000 MG/10 ML VIAL ONE (13:42)
[2023-03-26] MEDS ORDERED: ONDANSETRON 4 MG/2 ML VIAL ONE (13:42)
[2023-03-26] MEDS ORDERED: MIDAZOLAM 2 MG/2 ML VIAL ONE (13:42)
[2023-03-26] MEDS ORDERED: ePHEDrine 50 MG/5 ML SYRINGE (ANEST) IV ONE (13:42)
[2023-03-26] MEDS ORDERED: PHENYLephrine 1 MG/10 ML SYRINGE (ANEST) ONE (13:42)
[2023-03-26] MEDS ORDERED: ceFAZolin 2 GM in DEXTROSE 5% IN WATER 50 ML IV SCH (13:45)
--- NOTE | 2023-03-26 14:29 | EKG ---
[facility] Test Date: 2023-03-25 Pat Name: Arlette Glez Department: ED Room: Gender: Female Manager Family: : 1940 Requested By: Porter Clark Order Number: [id number] Reading MD: Sabas Ortega Measurements Intervals [place] Rate: 84 P: 70 MS: 211 QRS: 19 QRSD: 93 T: 73 QT: 406 QTc: 483 Interpretive Statements Sinus rhythm Multiple ventricular premature complexes Electronically Signed On 03-26-2023 14:29:47 PDT by Sabas Ortega /store/M0/[id number]
[2023-03-26] MEDS ORDERED: fentaNYL 100 MCG/2 ML VIAL IV PRN (14:45)
[2023-03-26] MEDS ORDERED: ONDANSETRON 4 MG/2 ML VIAL IV PRN (14:45)
[2023-03-26] MEDS ORDERED: PROMETHAZINE 25 MG/ML VIAL IV PRN (14:45)
[2023-03-26] MEDS ORDERED: IPRATROPIUM/ALBUTEROL 3 ML AMPUL.NEB NEB PRN (14:45)
[2023-03-26] MEDS ORDERED: METHOCARBAMOL 750 MG TABLET PO PRN (14:59)
[2023-03-26] MEDS ORDERED: BISACODYL 10 MG SUPP.RECT PR PRN (14:59)
[2023-03-26] MEDS ORDERED: MAGNESIUM HYDROXIDE 30 ML ORAL.SUSP PO PRN (14:59)
[2023-03-26] MEDS ORDERED: BENZOCAINE/MENTHOL 1 LOZENGE PO PRN (14:59)
[2023-03-26] MEDS ORDERED: POLYETHYLENE GLYCOL 3350 17 GM PACKET PO PRN (14:59)
[2023-03-26] MEDS ORDERED: FLEETS ADULT ENEMA PR PRN (14:59)
--- NOTE | 2023-03-26 17:01 | XRay Report ---
HISTORY: FINDINGS: IMPRESSION: 0.8 minutes of fluoroscopy time was used. Interpreted and Authenticated by: Ming Landrum 03/26/23
[2023-03-26] MEDS: ceFAZolin 1 GM VIAL IV SCH (21:22)
[2023-03-26] MEDS: ASPIRIN 81 MG TAB.CHEW PO SCH (21:23)
[2023-03-26] MEDS: SENNOSIDES 1 TABLET PO SCH (21:25)
[2023-03-27] MEDS: 0.45 % SODIUM CHLORIDE 1,000 ML IV SCH (05:40)
[2023-03-27] MEDS: ceFAZolin 1 GM VIAL IV SCH (05:41)
[2023-03-27] MEDS: 0.9 % SODIUM CHLORIDE 10 ML SYRINGE IV SCH ×3 (05:41→20:44)
[2023-03-27 07:04] LABS: Blood Urea Nitrogen 21 mg/dL (8-23); Calcium 8.1 mg/dL (8.6-10.4); Carbon Dioxide 18 mmol/L (22-30); Chloride 108 mmol/L (96-108); Glomerular Filtration Rate 53; Glucose 111 mg/dL (70-105)
--- NOTE | 2023-03-27 07:41 | Internal Med Progress Note ---
SUBJECTIVE Subjective Patient information: Note initiated : 03/27/23 at 7:39 am Service Date, if different from initiated Date: [] Patient: Arlette Glez a 82 y/o F admitted on 03/25/23 for Hip Pain, femur fracture. Chief Complaint: [] Interval history: History of present illness: Ms. Glez is a 82 year old F Presents to the hospital after fall and right hip pain. Patient states she was outside smoking and sitting down. She got up to go into the house and started feeling dizzy and lightheaded and tried to reach the couch but fell before onto her right side with immediate pain. She did not pass out or hit her head. She denies any recent illnesses. No chest pain shortness of breath nausea vomiting headache. Work-up in the ED revealed a right hip fracture. Dr. Peraza was contacted 03/26 Patient says she slept well. Does get severe spasms in her hip. She is scheduled to undergo surgery later today. 03/27 Patient seems to feeling better since surgery. Depletion improving. Start work with PT OT and work on placement. Review of Systems: Pertinent positive as above. Denies headache/fever/chills/nausea/vomiting/chest or abdominal pain/cough/dyspnea/diarrhea. PHYSICAL EXAM General: Alert, Awake, No acute Distress Eyes/N/T: EOMI, no scleral icterus, Head/Neck: neck supple, full ROM, CV: RRR, No murmurs, Pulm: Clear b/l, no wheezing/rhonchi/rales, no respiratory distress Abd: soft, nontender, +BS x4 Ext: no clubbing/cyanosis/edema, nontender Neuro: Alert, no focal deficits, , sensations intact b/l upper/lower Psychiatric: Skin: warm/dry, normal color Constitutional Vitals: Vital Signs Temp Pulse Resp BP Pulse Ox O2 Del Method O2 Flow Rate 98.1 F 80 20 116/69 95 Room Air 1 03/27/23 07:34 03/27/23 07:34 03/27/23 07:34 03/27/23 07:34 03/27/23 07:34 03/27/23 07:34 03/26/23 17:28 Period Temp Pulse Resp BP Sys/Nascimento Pulse Ox O2 Del Method O2 Flow Rate Last 24 Hr 97.5 F-98.7 F 63-141 11-22 107-144/55-108 89-100 Nasal Cannula-Room Air 1-6 Intake and Output 03/26/23 03/27/23 03/27/23 19:59 03:59 11:59 Intake Total 1250 1795 Output Total 1650 475 300 Balance -400 -475 1495 Weight 48.58 kg 54.034 kg Intake & Output: Intake & Output 03/26/23 03/27/23 03/27/23 19:59 03:59 11:59 Intake Total 1250 1795 Output Total 1650 475 300 Balance -400 -475 1495 Weight 48.58 kg 54.034 kg Intake: IV 50 1315 Sodium Chloride 0.45% 1,000 ml 1000 @ 60 mls/hr IV .[id number] MARIE Rx# :[id number] Sodium Chloride 0.9% 1,000 ml @ 315 60 mls/hr IV .[id number] MARIE Rx#: [id number] Ancef 2 gm In Dextrose 5% in 50 Water 50 ml @ 100 mls/hr IV PREOP MARIE Rx#:[id number] Oral 480 IV - Manual Only 1200 Output: Urine Catheter Amount 1450 475 300 Estimated Blood Loss 200 Other: Meal Dinner Percent of Meal Consumed 15% Feeding Ability Assist with Tray Set Up Urine Appearance Clear Clear Clear Uretheral ([place]) Clear Clear Urine Color Yellow Yellow Yellow Uretheral ([place]) Yellow Yellow Urine Odor Normal Normal OBJ DATA Labs 03/26/23 05:47 03/27/23 05:39 Labs: Abnormal Lab Results 03/27/23 03/26/23 03/26/23 05:39 05:47 01:43 Absolute Neutrophils Chloride 109 H Carbon Dioxide 18 L 19 L POC BUN BUN 26 H POC Creatinine Glucose 111 H 108 H POC Glucose Calcium 8.1 L 8.5 L Urine Appearance Cloudy A Urine Protein 30 A Urine Glucose (UA) 50 A Ur Squamous Epith Cells 99 H Amorphous Crystals Few A Urine Bacteria Mod A 03/25/23 03/25/23 03/25/23 19:56 19:56 19:44 Absolute Neutrophils 8.18 H Chloride Carbon Dioxide POC BUN 34 H BUN 35 H POC Creatinine 1.3 H Glucose 127 H POC Glucose 131 H Calcium Urine Appearance Urine Protein Urine Glucose (UA) Ur Squamous Epith Cells Amorphous Crystals Urine Bacteria Meds: Medications Acetaminophen (Acetaminophen 325 Mg Tablet) 650 mg PO Q6HP PRN; Protocol PRN Reason: Per Pain Protocol/Fever > 101 Hydrocodone Bitart/Acetaminophen (Hydrocodone/Apap 5/325mg Tablet) 0 tab PO Q4HP PRN; Protocol PRN Reason: Per Pain Protocol Last Admin: 03/26/23 17:33 Dose: 1 tab Albuterol/Ipratropium (Ipratropium/Albuterol 3 Ml Ampul.Neb) 3 ml NEB Q4HP PRN PRN Reason: Shortness Of Breath Aspirin (Aspirin 81 Mg Tab.Chew) 81 mg PO BID [facility] Last Admin: 03/26/23 21:23 Dose: 81 mg Bisacodyl (Bisacodyl 10 Mg Supp.Rect) 10 mg [place] Q2-3DAYS PRN PRN Reason: Constipation Docusate Sodium (Docusate Sodium 100 Mg Capsule) 100 mg PO BID [facility] Last Admin: 03/26/23 21:24 Dose: Not Given Docusate Sodium (Docusate Sodium 100 Mg Capsule) 100 mg PO BID [facility] Last Admin: 03/26/23 21:24 Dose: Not Given Hydralazine HCl (Hydralazine 20 Mg/Ml Vial) 0 mg IV Q2HP PRN PRN Reason: Hypertension Potassium Chloride 40 meq/ (Dextrose) 520 mls @ 130 mls/hr IV UD PRN PRN Reason: Potassium < 3 Magnesium Sulfate (Magnesium Sulfate) 2 gm in 50 mls @ 50 mls/hr IV UD PRN PRN Reason: Magnesium </= 1.6 Sodium Chloride (Sodium Chloride 0.45%) 1,000 mls @ 60 mls/hr IV .[id number] [facility] Last Infusion: 03/27/23 05:40 Dose: Infused Labetalol HCl (Labetalol 5 Mg/Ml Ml) 0 mg IV Q2HP PRN PRN Reason: Hypertension Last Admin: 03/25/23 23:13 Dose: 20 mg Magnesium Hydroxide (Magnesium Hydroxide 30 Ml Oral.Susp) 30 ml PO BIDP PRN PRN Reason: Constipation Methocarbamol (Methocarbamol 1,000 Mg/10 Ml Vial) 750 mg IV Q6HP PRN PRN Reason: Muscle Spasm Last Admin: 03/26/23 07:17 Dose: 750 mg Methocarbamol (Methocarbamol 750 Mg Tablet) 750 mg PO Q6HP PRN PRN Reason: Muscle Spasm Morphine Sulfate (Morphine 4 Mg/Ml Vial) 0 mg IV Q3HP PRN PRN Reason: Pain Last Admin: 03/26/23 12:17 Dose: 3 mg Ondansetron HCl (Ondansetron 4 Mg/2 Ml Vial) 4 mg IV Q4HP PRN PRN Reason: Nausea And Vomiting Polyethylene Glycol (Polyethylene Glycol 3350 17 Gm Packet) 17 gm PO DAILYP PRN PRN Reason: Constipation Potassium Chloride (Potassium Chloride 20 Meq Tablet) 40 meq PO UD PRN PRN Reason: Potssium is 3-3.5 Potassium Chloride (Potassium Chloride 20 Meq Tablet) 40 meq PO UD PRN PRN Reason: Potassium < 3 Senna (Sennosides 1 Tablet) 2 tab PO DAILYP PRN PRN Reason: Constipation Senna (Sennosides 1 Tablet) 2 tab PO HS [facility] Last Admin: 03/26/23 21:25 Dose: Not Given Sodium Biphosphate/Sodium Phosphate (Fleets Adult Enema) 1 dose AZ Q3-4DAYS PRN PRN Reason: Constipation Sodium Chloride (0.9 % Sodium Chloride 10 Ml Syringe) 10 ml IV Q8 [facility] Last Admin: 03/27/23 05:41 Dose: 10 ml Throat Lozenges (Benzocaine/Menthol 1 Lozenge) 1 lozenge PO PRN PRN PRN Reason: Sore Throat A/P Narrative A/P Narrative: A: *Right hip fracture: s/p ORIF (03/26) *Volume depletion: *CKD III: *Hypothyroidism: Continue Synthroid *Depression: cont Seroquel *Tobacco abuse: P: -Dr. Peraza for orthopedic repair -d/c ivf -cont norvasc -cont psych meds -PT/OT -CM for placement needs -Smoking cessation counseling -ppx: SCD and postop per Ortho asa bid Time Spent With Patient Time: Total time spent is greater than 50% in coordination of care (as documented) at patient's floor/unit and/or counseling patient: Subsequent: Total time with patient: 35 - 49 minutes QUALITY Stroke Symptom Onset Unknown: No VTE Deep Vein Thrombosis/Pulmonary Embolism Present on Admission: No
--- NOTE | 2023-03-27 08:03 | Operative Note ---
DATE OF OPERATION: 03/26/2023 DATE OF PROCEDURE: 03/26/2023 PREOPERATIVE DIAGNOSIS: Right intertrochanteric hip fracture. POSTOPERATIVE DIAGNOSIS: Right intertrochanteric hip fracture. OPERATION PROPOSED: Reduction and internal fixation of right hip using a Gaston gamma nail. OPERATION PERFORMED: Same. SURGEON: Adolph Peraza M.D. WIRE INSPECTOR: Doris Martinez PA-C. This providers expertise and technical skill were required throughout the case. The PA assisted with preoperative coordination, intraoperative retraction, wound closure, and dressing and splint application, as well as postoperative documentation and care coordination. INDICATIONS: This is a lady who has had a displaced femoral neck fracture in need of operative stabilization. DESCRIPTION OF PROCEDURE: Informed consent was obtained. She was taken to the operating room, provided with appropriate anesthetic and prophylactic antibiotics. She was carefully positioned. The best possible reduction was obtained. This was aided by anterior/posterior pressure on the femoral neck with an awl. An entry point into the tip of the greater trochanter was made using a 3.2 mm guidewire. I then entered with an opening reamer. A long guidewire was applied. I reamed the length of the femur and applied a 10 x 320 gamma nail. A guidewire was placed retrograde across the fracture, stabilizing the intertrochanteric fragment. A hip screw was applied and locked to the kelley. A distal interlocking screw was placed. The wounds were irrigated and closed. The procedure was tolerated well. No complications. ESTIMATED BLOOD LOSS: 200 mL. GDD:ata Job ID: [id number] Doc ID: [id number] Adolph Peraza MD
[2023-03-27] MEDS ORDERED: MELATONIN 3 MG TABLET PO PRN (09:04)
[2023-03-27] MEDS ORDERED: CYCLOBENZAPRINE 10 MG TABLET PO PRN (09:06)
[2023-03-27] MEDS: ASPIRIN 81 MG TAB.CHEW PO SCH ×2 (09:10→20:43)
[2023-03-27] MEDS: DOCUSATE SODIUM 100 MG CAPSULE PO SCH ×3 (09:25→20:44)
[2023-03-27] MEDS: HYDROcodone/APAP 5/325MG TABLET PO PRN ×3 (09:33→23:41)
[2023-03-27] MEDS: QUEtiapine 25 MG TABLET PO SCH (09:36)
--- NOTE | 2023-03-27 10:08 | Discharge Summary ---
Discharge Provider Provider IMPORTANT FOLLOW-UP INFORMATION FOR PCP: Patient information: Note initiated : 03/27/23 at 10:07 am Service Date, if different from initiated Date: [] Patient: Arlette Glez 82 y/o F admitted on 03/25/23 for Hip Pain, femur fracture. Chief Complaint: [] Date of admission: 03/25/23 22:23 Discharge date: 03/28/23 Primary care physician: Lucretia Aguirre Consults: 03/25/23 Consult to Physician [CONS] Stat Comment: Consulting Provider: Adolph Peraza Reason For Exam: Physician to Consult Consult to Physician [CONS] Stat Comment: Consulting Provider: James Crowell Reason For Exam: Physician to Consult COURSE Hospital Course Hospital course: History of present illness: Ms. Glez is a 82 year old F Presents to the hospital after fall and right hip pain. Patient states she was outside smoking and sitting down. She got up to go into the house and started feeling dizzy and lightheaded and tried to reach the couch but fell before onto her right side with immediate pain. She did not pass out or hit her head. She denies any recent illnesses. No chest pain shortness of breath nausea vomiting headache. Work-up in the ED revealed a right hip fracture. Dr. Peraza was contacted 03/26 Patient says she slept well. Does get severe spasms in her hip. She is scheduled to undergo surgery later today. 03/27 Patient seems to feeling better since surgery. Depletion improving. Start work with PT OT and work on placement. 03/28 Patient doing well. No overnight event or new complaints. Patient stable for discharge A: *Right hip fracture: s/p ORIF (03/26) *Volume depletion: *CKD III: *Hypothyroidism: Continue Synthroid *Depression: cont Seroquel *Tobacco abuse: P: -Dr. Peraza for orthopedic f/u Discharge diagnosis: Right hip fracture volume depletion Secondary discharge diagnosis: CKD hypothyroidism depression tobacco abuse Time Spent with Patient Time attestation: Total time spent providing and/or coordinating discharge services: Time spent: Greater than 30 minutes EXAM Constitutional Vitals: Temp Pulse Resp BP Pulse Ox O2 Del Method O2 Flow Rate 98.1 F 80 20 116/69 95 Room Air 1 03/27/23 07:34 03/27/23 07:34 03/27/23 07:39 03/27/23 07:34 03/27/23 07:39 03/27/23 07:39 03/26/23 17:28 Discharge Data Data Completed and Pending Labs on day of discharge: Labs from last 24 hours 03/27/23 05:39 Sodium 137 Potassium 4.4 Chloride 108 Carbon Dioxide 18 L Anion Gap 11.0 BUN 21 Creatinine 1.0 GFR Calculation 53 Glucose 111 H Calcium 8.1 L Discharge Plan Patient/Caregiver Discharge Instructions Activity: ambulate only with your walker and increase activity as tolerated Diet: Regular Diet Prescriptions: New Aspirin 81 mg PO BID Qty: 60 0RF hydrocodone-acetaminophen 5-325 mg Tablet 1 tab PO Q4HP PRN (Reason: Per Pain Protocol) Qty: 30 0RF Continued aspirin 81 mg tablet,delayed release (DR/EC) 81 mg PO QDAY ascorbic acid (vitamin C) 500 mg capsule 500 mg PO QDAY levothyroxine 100 mcg tablet 100 mcg PO QDAY amlodipine 10 mg tablet 10 mg PO QDAY Centrum Silver Women 8 mg iron-400 mcg-300 mcg Tablet 1 tab PO QDAY melatonin 3 mg Tablet 3 mg PO HSP PRN (Reason: Insomnia) Qty: 30 0RF cyclobenzaprine 10 mg Tablet 10 mg PO BID PRN (Reason: Muscle Spasm) quetiapine [Seroquel] 50 mg Tablet 50 mg PO QHS quetiapine [Seroquel] 25 mg tablet 25 mg PO QDAY Follow Up Plan Follow up with: Lucretia Aguirre MD [Primary Care Provider] - Patient Disposition: Xfer SNF Prognosis: Fair Rehab Potential: Fair I certify that the patient requires SNF services: Yes Overall status at discharge: patient is progressing back to baseline Discharge Orders: Discharge Order (Routine); Ordered 03/28/23 Ordered By: James Crowell [facility] VTE Deep Vein Thrombosis/Pulmonary Embolism Present on Admission: No
[2023-03-27] MEDS: LEVOTHYROXINE 100 MCG TABLET PO SCH (16:41)
[2023-03-27] MEDS: SENNOSIDES 1 TABLET PO SCH (20:44)
[2023-03-27] MEDS ORDERED: QUEtiapine 25 MG TABLET PO SCH (21:00)
[2023-03-28] MEDS: 0.9 % SODIUM CHLORIDE 10 ML SYRINGE IV SCH (06:07)
[2023-03-28] MEDS: LEVOTHYROXINE 100 MCG TABLET PO SCH (06:56)
[2023-03-28] MEDS: HYDROcodone/APAP 5/325MG TABLET PO PRN (06:56)
[2023-03-28] MEDS: ASPIRIN 81 MG TAB.CHEW PO SCH (08:29)
[2023-03-28] MEDS: DOCUSATE SODIUM 100 MG CAPSULE PO SCH ×2 (08:29→09:28)
[2023-03-28] MEDS: QUEtiapine 25 MG TABLET PO SCH (08:29)
[2023-03-28] MEDS ORDERED: amLODIPine 10 MG TABLET PO SCH (09:00)
== END 2023-03-28 11:00 | DRG 482 ==
LOC: ED 19:19 → MEDSUR 22:23
PROVIDERS: ADMIT Internal Medicine; ATTEND Internal Medicine

== ENCOUNTER 2024-01-01 10:49 | Inpatient (IN) ==
[2024-01-01 14:51] LABS: Basophils # (Auto) 0.03 K/mcL (0.00-0.30); Basophils % (Auto) 0.2 % (0.0-2.0); Eosinophils # (Auto) 0.26 K/mcL (0.00-0.70); Eosinophils % (Auto) 1.9 % (0.0-7.0); Hematocrit 42.6 % (34.1-44.9); Hemoglobin 14.5 g/dL (11.2-15.7); Lymphocytes # (Auto) 1.81 K/mcL (1.50-4.80); Lymphocytes % (Auto) 13.5 % (15.5-49.0); Mean Cell Volume 94.5 fL (80.0-100.0); Mean Platelet Volume 9.8 fL (8.8-12.5); Monocytes # (Auto) 0.75 K/mcL (0.10-0.90); Monocytes % (Auto) 5.6 % (1.0-12.0); Neutrophils % (Auto) 78.4 % (38.0-78.0); Platelet Count 283 K/mcL (140-440); RBC 4.51 M/mcL (3.59-5.38); WBC 13.4 K/mcL (4.5-11.0)
[2024-01-01 15:33] LABS: ALT/SGPT 10 U/L (<40); AST/SGOT 26 U/L (<32); Albumin/Globulin Ratio 1.1 (1.0-2.3); Alkaline Phosphatase 119 U/L (39-117); Bilirubin,Total < 0.2 mg/dL (0.1-1.0); Blood Urea Nitrogen 20 mg/dL (8-23); Calcium 9.1 mg/dL (8.6-10.4); Carbon Dioxide 15 mmol/L (22-30); Chloride 98 mmol/L (96-108); Globulin 3.7 gm/dL (2.2-3.7); Glomerular Filtration Rate 23; Glucose 79 mg/dL (70-105)
[2024-01-01] MEDS: POTASSIUM CHLORIDE 20 MEQ TABLET PO ONE (16:40)
[2024-01-01] MEDS: 0.9 % SODIUM CHLORIDE 1,000 ML IV ONE (17:33)
[2024-01-01] MEDS: LACTATED RINGERS 1,000 ML IV ONE (17:33)
[2024-01-01] MEDS: POTASSIUM CHLORIDE 20 MEQ in DEXTROSE 5% IN WATER 250 ML IV ONE (17:33)
[2024-01-01] MEDS ORDERED: ACETAMINOPHEN 325 MG TABLET PO PRN (21:20)
[2024-01-01] MEDS ORDERED: ONDANSETRON 4 MG/2 ML VIAL IV PRN (21:20)
[2024-01-01] MEDS: DEXTROSE 5%-1/2NS W/40MEQ KCL 1,000 ML IV SCH (22:09)
[2024-01-01] MEDS: POTASSIUM CHLORIDE 20 MEQ/10 ML VIAL IV ONE (22:09)
[2024-01-01] MEDS: 0.9 % SODIUM CHLORIDE 10 ML SYRINGE IV SCH (22:09)
[2024-01-01] MEDS: HEPARIN 5,000 UNIT/ML VIAL SQ SCH (23:09)
[2024-01-01] MEDS: POTASSIUM CHLORIDE 40 MEQ in DEXTROSE 5%-1/2NS 1,000 ML IV SCH (23:21)
[2024-01-02 07:07] LABS: Basophils # (Auto) 0.03 K/mcL (0.00-0.30); Basophils % (Auto) 0.3 % (0.0-2.0); Eosinophils # (Auto) 0.31 K/mcL (0.00-0.70); Eosinophils % (Auto) 2.7 % (0.0-7.0); Hematocrit 43.2 % (34.1-44.9); Hemoglobin 14.6 g/dL (11.2-15.7); Lymphocytes # (Auto) 1.85 K/mcL (1.50-4.80); Lymphocytes % (Auto) 15.9 % (15.5-49.0); Mean Cell Volume 94.9 fL (80.0-100.0); Mean Corpuscular HGB Conc 33.8 g/dL (31.0-36.0); Mean Platelet Volume 10.5 fL (8.8-12.5); Monocytes # (Auto) 0.72 K/mcL (0.10-0.90); Monocytes % (Auto) 6.2 % (1.0-12.0); Neutrophils % (Auto) 74.6 % (38.0-78.0); Platelet Count 264 K/mcL (140-440); RBC 4.55 M/mcL (3.59-5.38); Red Cell Distribution Width 14.4 % (11.5-14.5); WBC 11.7 K/mcL (4.5-11.0)
[2024-01-02 07:48] LABS: ALT/SGPT 9 U/L (<40); AST/SGOT 24 U/L (<32); Albumin 3.7 gm/dL (3.2-5.2); Albumin/Globulin Ratio 1.2 (1.0-2.3); Alkaline Phosphatase 112 U/L (39-117); Bilirubin,Direct < 0.2 mg/dL (0-0.3); Bilirubin,Total < 0.2 mg/dL (0.1-1.0); Blood Urea Nitrogen 15 mg/dL (8-23); Calcium 8.8 mg/dL (8.6-10.4); Carbon Dioxide 15 mmol/L (22-30); Chloride 104 mmol/L (96-108); Glomerular Filtration Rate 30; Glucose 120 mg/dL (70-105); Lactate Dehydrogenase 160 U/L (135-225); Phosphorous 2.4 mg/dL (2.5-4.5); Triglycerides 199 mg/dL (<150); Uric Acid 13.8 mg/dL (2.5-8.0)
[2024-01-02] MEDS ORDERED: CYCLOBENZAPRINE 10 MG TABLET PO PRN (09:20)
[2024-01-02] MEDS: POTASSIUM CHLORIDE 40 MEQ in DEXTROSE 5%-1/2NS 1,000 ML IV SCH (10:30)
[2024-01-02] MEDS: LOPERAMIDE 2 MG CAPSULE PO PRN (12:01)
[2024-01-02] MEDS: QUEtiapine 25 MG TABLET PO SCH (22:05)
[2024-01-03 06:33] LABS: ALT/SGPT 8 U/L (<40); AST/SGOT 17 U/L (<32); Albumin 3.1 gm/dL (3.2-5.2); Albumin/Globulin Ratio 1.3 (1.0-2.3); Alkaline Phosphatase 87 U/L (39-117); Bilirubin,Direct < 0.2 mg/dL (0-0.3); Bilirubin,Total < 0.2 mg/dL (0.1-1.0); Blood Urea Nitrogen 10 mg/dL (8-23); Calcium 7.9 mg/dL (8.6-10.4); Carbon Dioxide 14 mmol/L (22-30); Chloride 111 mmol/L (96-108); Globulin 2.4 gm/dL (2.2-3.7); Glomerular Filtration Rate 47; Glucose 117 mg/dL (70-105); Lactate Dehydrogenase 137 U/L (135-225); Phosphorous 1.9 mg/dL (2.5-4.5); Triglycerides 176 mg/dL (<150)
[2024-01-03] MEDS: LEVOTHYROXINE 100 MCG TABLET PO SCH (07:19)
[2024-01-03] MEDS: ASPIRIN 81 MG TAB.CHEW PO SCH (08:45)
[2024-01-03] MEDS: QUEtiapine 25 MG TABLET PO SCH (08:47)
[2024-01-04 06:32] LABS: ALT/SGPT 14 U/L (<40); AST/SGOT 18 U/L (<32); Albumin 3.4 gm/dL (3.2-5.2); Albumin/Globulin Ratio 1.3 (1.0-2.3); Alkaline Phosphatase 98 U/L (39-117); Bilirubin,Direct < 0.2 mg/dL (0-0.3); Bilirubin,Total < 0.2 mg/dL (0.1-1.0); Blood Urea Nitrogen 10 mg/dL (8-23); Calcium 8.6 mg/dL (8.6-10.4); Carbon Dioxide 16 mmol/L (22-30); Chloride 109 mmol/L (96-108); Globulin 2.6 gm/dL (2.2-3.7); Glomerular Filtration Rate 53; Glucose 90 mg/dL (70-105); Lactate Dehydrogenase 161 U/L (135-225); Phosphorous 1.8 mg/dL (2.5-4.5); Triglycerides 297 mg/dL (<150); Uric Acid 7.3 mg/dL (2.5-8.0)
[2024-01-04] MEDS: POTASSIUM PHOSPHATE 40 MEQ in DEXTROSE 5% IN WATER 500 ML IV ONE (08:27)
[2024-01-04] MEDS ORDERED: NEUTRA PHOS 1 PACKET PO SCH (09:00)
[2024-01-04] MEDS: SODIUM PHOSPHATE 30 MMOL in DEXTROSE 5% IN WATER 500 ML IV ONE (09:30)
[2024-01-04] MEDS: CHOLESTYRAMINE/ASPARTAME 4 GM POWD.PACK PO SCH (10:33)
[2024-01-05] MEDS: SODIUM PHOSPHATE 30 MMOL in DEXTROSE 5% IN WATER 500 ML IV ONE (08:32)
[2024-01-06 09:25] LABS: Albumin 3.4 gm/dL (3.2-5.2); Blood Urea Nitrogen 13 mg/dL (8-23); Calcium 8.5 mg/dL (8.6-10.4); Carbon Dioxide 23 mmol/L (22-30); Chloride 107 mmol/L (96-108); Glomerular Filtration Rate 47; Glucose 83 mg/dL (70-105); Phosphorous 2.6 mg/dL (2.5-4.5)
== END 2024-01-06 11:15 | disposition home or self-care (01) | DRG 392 ==
LOC: ED 10:49 → MEDSUR 20:58
PROVIDERS: ADMIT Internal Medicine; ATTEND Internal Medicine

== ENCOUNTER 2024-02-05 02:07 | Inpatient (IN) ==
[2024-02-05] MEDS ORDERED: IOPAMIDOL 100 ML BOTTLE IV ONE (02:08)
[2024-02-05] MEDS: 0.9 % SODIUM CHLORIDE 1,000 ML IV ONE (02:46)
[2024-02-05 03:06] LABS: Basophils # (Auto) 0.02 K/mcL (0.00-0.30); Basophils % (Auto) 0.1 % (0.0-2.0); Eosinophils # (Auto) 0.09 K/mcL (0.00-0.70); Eosinophils % (Auto) 0.7 % (0.0-7.0); Hematocrit 42.5 % (34.1-44.9); Hemoglobin 13.6 g/dL (11.2-15.7); Lymphocytes # (Auto) 1.02 K/mcL (1.50-4.80); Lymphocytes % (Auto) 7.6 % (15.5-49.0); Mean Cell Volume 101.9 fL (80.0-100.0); Mean Platelet Volume 10.3 fL (8.8-12.5); Monocytes # (Auto) 0.58 K/mcL (0.10-0.90); Monocytes % (Auto) 4.3 % (1.0-12.0); Platelet Count 140 K/mcL (140-440); RBC 4.17 M/mcL (3.59-5.38); Red Cell Distribution Width 15.2 % (11.5-14.5); WBC 13.4 K/mcL (4.5-11.0)
[2024-02-05 03:24] LABS: ALT/SGPT < 5 U/L (<40); AST/SGOT 18 U/L (<32); Albumin 3.6 gm/dL (3.2-5.2); Albumin/Globulin Ratio 1.2 (1.0-2.3); Alkaline Phosphatase 98 U/L (39-117); Bilirubin,Total < 0.2 mg/dL (0.1-1.0); Blood Urea Nitrogen 26 mg/dL (8-23); Calcium 8.7 mg/dL (8.6-10.4); Carbon Dioxide 19 mmol/L (22-30); Chloride 106 mmol/L (96-108); Creatine Kinase 51 U/L (24-170); Globulin 3.1 gm/dL (2.2-3.7); Glomerular Filtration Rate 47; Glucose 170 mg/dL (70-105)
[2024-02-05 05:12] LABS: Appearance,Urine CLEAR (Clear); Bilirubin,Urine Negative (Negative); Color,Urine YELLOW; Culture Indicated,Urine No; Glucose,Urine (UA) Negative (Negative); Ketones,Urine Negative (Negative); Leukocyte Esterase,Urine Negative /uL (Negative); Mucus,Urine FEW /hpf; Nitrate,Urine Negative (Negative); Protein,Urine 30 mg/dL (Negative); Specific Gravity,Urine 1.033 (1.000-1.035); Urine Blood Trace-intact ery/mcL (Negative); Urine Hyaline Cast 3 /lph (0-2); Urine RBC 2 /hpf (0-3); Urine Squamous Epithelial Cell 0 /hpf (0-4); Urine WBC 0 /hpf (0-4); Urobilinogen,Urine Negative
[2024-02-05] MEDS: ONDANSETRON 4 MG/2 ML VIAL IV ONE (09:32)
[2024-02-05] MEDS ORDERED: SENNOSIDES 1 TABLET PO PRN (13:01)
[2024-02-05] MEDS: DEXTROSE 5%-1/2NS W/20MEQ KCL 1,000 ML IV SCH (13:04)
[2024-02-05] MEDS: 0.9 % SODIUM CHLORIDE 10 ML SYRINGE IV SCH (13:05)
[2024-02-05] MEDS: ONDANSETRON 4 MG/2 ML VIAL IV PRN (13:33)
[2024-02-05] MEDS: ACETAMINOPHEN 325 MG TABLET PO PRN (13:33)
[2024-02-05] MEDS: PNEUMOCOCCAL 23-VAL P-SAC VAC 0.5 ML SYRINGE IM ONE (14:21)
[2024-02-05] MEDS ORDERED: NON FORMULARY MEDICATION 1 DOSE MISCELL (Banana Flakes-T-Galactooligos. [Banatrol Plus] po PO PRN (15:01)
[2024-02-05] MEDS ORDERED: LORazepam 2 MG/ML VIAL IV PRN (15:03)
[2024-02-05 15:41] LABS: Thyroid Stimulating Hormone 5.31 uIU/mL (0.27-5.01)
[2024-02-05] MEDS ORDERED: SCOPOLAMINE 1 PATCH PATCH TOPICAL PRN (16:11)
[2024-02-05] MEDS: DEXAMETHASONE 10 MG/ML VIAL IV ONE (16:28)
[2024-02-05] MEDS: CYCLOBENZAPRINE 10 MG TABLET PO PRN (16:49)
[2024-02-05] MEDS: PROCHLORPERAZINE 10 MG/2 ML VIAL IV PRN (18:45)
[2024-02-05] MEDS: ENALAPRILAT 1.25 MG/ML VIAL IV PRN (18:47)
[2024-02-05] MEDS: MELATONIN 3 MG TABLET PO PRN (19:47)
[2024-02-05] MEDS ORDERED: QUEtiapine 25 MG TABLET PO SCH (21:00)
[2024-02-05] MEDS: HEPARIN 5,000 UNIT/ML VIAL SQ SCH (21:18)
[2024-02-06] MEDS: QUEtiapine 25 MG TABLET PO SCH ×2 (00:16→20:38)
[2024-02-06] MEDS: QUEtiapine 25 MG TABLET ONE (00:17)
[2024-02-06] MEDS: HYDROcodone/APAP 5/325MG TABLET PO PRN (02:10)
[2024-02-06] MEDS: HYDROcodone/APAP 5/325MG TABLET PO ONE (02:23)
[2024-02-06] MEDS: METHOCARBAMOL 750 MG TABLET PO ONE (03:34)
[2024-02-06 06:15] LABS: Hematocrit 38.1 % (34.1-44.9); Hemoglobin 12.3 g/dL (11.2-15.7); Mean Cell Volume 100.3 fL (80.0-100.0); Mean Corpuscular HGB Conc 32.3 g/dL (31.0-36.0); Mean Platelet Volume 10.4 fL (8.8-12.5); Platelet Count 146 K/mcL (140-440); Red Cell Distribution Width 15.4 % (11.5-14.5); WBC 11.1 K/mcL (4.5-11.0)
[2024-02-06 06:30] LABS: ALT/SGPT 10 U/L (<40); AST/SGOT 23 U/L (<32); Albumin 3.6 gm/dL (3.2-5.2); Albumin/Globulin Ratio 1.2 (1.0-2.3); Alkaline Phosphatase 93 U/L (39-117); Bilirubin,Direct < 0.2 mg/dL (0-0.3); Bilirubin,Total < 0.2 mg/dL (0.1-1.0); Blood Urea Nitrogen 13 mg/dL (8-23); Calcium 8.6 mg/dL (8.6-10.4); Carbon Dioxide 19 mmol/L (22-30); Chloride 105 mmol/L (96-108); Globulin 2.9 gm/dL (2.2-3.7); Glomerular Filtration Rate 69; Glucose 124 mg/dL (70-105); Lactate Dehydrogenase 158 U/L (135-225); Phosphorous 2.5 mg/dL (2.5-4.5); Triglycerides 175 mg/dL (<150); Uric Acid 5.1 mg/dL (2.5-8.0)
[2024-02-06 06:49] LABS: Lymphocytes % 9 % (15-49); Metamyelocytes % 1 %; Monocytes % (Manual) 5 % (1-12); Platelet Estimate NORMAL (Normal); RBC Morphology NORMAL (Normal); Reactive Lymphocytes 5 % (0-2); Segmented Neutrophils % 80 % (38-78)
[2024-02-06] MEDS: SODIUM BICARBONATE 650 MG TABLET PO SCH (10:25)
[2024-02-06] MEDS: LEVOTHYROXINE 100 MCG TABLET PO SCH (10:26)
[2024-02-06] MEDS: amLODIPine 5 MG TABLET PO SCH (10:26)
[2024-02-06] MEDS: metroNIDAZOLE 500 MG/100 ML BAG IV SCH (12:51)
[2024-02-06] MEDS: CIPROFLOXACIN 400 MG/200 ML BAG IV SCH (15:35)
[2024-02-06] MEDS: LOPERAMIDE 2 MG CAPSULE PO ONE (16:48)
[2024-02-06] MEDS: LOPERAMIDE 2 MG CAPSULE PO PRN (20:38)
[2024-02-06] MEDS: METHOCARBAMOL 500 MG TABLET PO PRN (21:58)
[2024-02-07 05:55] LABS: Basophils # (Auto) 0.02 K/mcL (0.00-0.30); Basophils % (Auto) 0.2 % (0.0-2.0); Hematocrit 38.9 % (34.1-44.9); Hemoglobin 12.6 g/dL (11.2-15.7); Lymphocytes # (Auto) 2.22 K/mcL (1.50-4.80); Lymphocytes % (Auto) 22.5 % (15.5-49.0); Mean Cell Volume 100.3 fL (80.0-100.0); Mean Corpuscular HGB Conc 32.4 g/dL (31.0-36.0); Mean Platelet Volume 10.3 fL (8.8-12.5); Monocytes # (Auto) 0.65 K/mcL (0.10-0.90); Monocytes % (Auto) 6.6 % (1.0-12.0); Neutrophils % (Auto) 68.6 % (38.0-78.0); Platelet Count 136 K/mcL (140-440); RBC 3.88 M/mcL (3.59-5.38); Red Cell Distribution Width 15.3 % (11.5-14.5); WBC 9.9 K/mcL (4.5-11.0)
[2024-02-07 06:25] LABS: Blood Urea Nitrogen 11 mg/dL (8-23); Calcium 8.3 mg/dL (8.6-10.4); Carbon Dioxide 21 mmol/L (22-30); Chloride 105 mmol/L (96-108); Glomerular Filtration Rate 69; Glucose 93 mg/dL (70-105)
[2024-02-07] MEDS: CHOLESTYRAMINE/ASPARTAME 4 GM POWD.PACK PO ONE (08:27)
[2024-02-07] MEDS ORDERED: IPRATROPIUM/ALBUTEROL 3 ML AMPUL.NEB NEB PRN (08:56)
[2024-02-07] MEDS: DICYCLOMINE 20 MG TABLET PO SCH (09:09)
[2024-02-07] MEDS: CYCLOBENZAPRINE 10 MG TABLET PO PRN (19:47)
[2024-02-07] MEDS: MELATONIN 3 MG TABLET PO SCH (19:47)
[2024-02-07] MEDS: CHOLESTYRAMINE/ASPARTAME 4 GM POWD.PACK PO SCH (20:24)
[2024-02-07] MEDS ORDERED: QUEtiapine 25 MG TABLET PO SCH (21:00)
[2024-02-07] MEDS: LORazepam 2 MG/ML VIAL IV PRN (21:59)
[2024-02-08 06:55] LABS: ALT/SGPT 8 U/L (<40); AST/SGOT 31 U/L (<32); Albumin 3.5 gm/dL (3.2-5.2); Albumin/Globulin Ratio 1.2 (1.0-2.3); Alkaline Phosphatase 105 U/L (39-117); Bilirubin,Direct < 0.2 mg/dL (0-0.3); Bilirubin,Total 0.4 mg/dL (0.1-1.0); Blood Urea Nitrogen 11 mg/dL (8-23); Calcium 8.4 mg/dL (8.6-10.4); Carbon Dioxide 19 mmol/L (22-30); Chloride 103 mmol/L (96-108); Globulin 2.9 gm/dL (2.2-3.7); Glomerular Filtration Rate 69; Glucose 115 mg/dL (70-105); Lactate Dehydrogenase 179 U/L (135-225); Phosphorous 2.6 mg/dL (2.5-4.5); Triglycerides 148 mg/dL (<150); Uric Acid 4.9 mg/dL (2.5-8.0)
[2024-02-08] MEDS: SODIUM BICARBONATE 650 MG TABLET PO SCH (08:54)
[2024-02-08] MEDS: amLODIPine 5 MG TABLET PO SCH (08:54)
[2024-02-09] MEDS: CIPROFLOXACIN 500 MG TABLET PO SCH (08:26)
[2024-02-09] MEDS: metroNIDAZOLE 500 MG TABLET PO SCH (13:57)
[2024-02-09] MEDS: diphenhydrAMINE 25 MG CAPSULE PO PRN (22:25)
[2024-02-10] MEDS: amLODIPine 5 MG TABLET PO SCH (08:19)
[2024-02-10] MEDS: CHOLESTYRAMINE/ASPARTAME 4 GM POWD.PACK PO SCH (08:19)
== END 2024-02-10 10:28 | DRG 392 ==
LOC: ED 02:07 → MEDSUR 12:35 → ICU 14:45 → MEDSUR 02-09 19:46
PROVIDERS: ADMIT Internal Medicine; ATTEND Internal Medicine